=== PATIENT | female | born 1985 | race Caucasian/White ===

== ENCOUNTER 2018-08-15 22:50 | Emergency (ER) | payer SELFPAY ==
[~2018-08-15] VITALS: Ht 157.5 cm; Wt 113.4 kg
[~2018-08-15 22:50] MED LIST: AMOX500C2 PO; CODE-54 PO; CYCL10TA9 PO; FLUC200T PO; IBP600T1 PO; LEVO500T2 PO; LRT10T PO; NAPR-689 PO; PREN-115 PO; TRAM-42 PO
--- OUTSIDE RECORDS SUMMARY | 2018-08-15 22:55 | XMS REPORT ---
Author Author GEORGE ESTEBAN [facility] eClinicalWorks Address Unknown Phone Unavailable Care Team Providers Care Senior Merchandiser Name Role Phone GEORGE ESTEBAN Unavailable Allergies No Known Allergies Problems Problem Type Condition Code Onset Dates Condition Status Problem Surveillance for control, intrauterine device Z30.431 Active Problem Breast tenderness N64.4 Active Problem History of nipple discharge Z87.898 Active Problem Absence of menses due to use of contraceptive N91.2 Active Assessment History of nipple discharge Z87.898 Active Medications No Known Medications Procedures Procedure Coding System Code Date VENIPUNCT, ROUTINE* CPT-4 09622 Oct 17, 2015 ASSAY OF PROLACTIN CPT-4 03643 Oct 17, 2015 Results No Known Results Summary Purpose eClinicalWorks Submission
--- OUTSIDE RECORDS SUMMARY | 2018-08-15 22:55 | XMS REPORT ---
Author Author GEORGE ESTEBAN [facility] eClinicalWorks Address Unknown Phone Unavailable Care Team Providers Care City Assessor Name Role Phone GEORGE ESTEBAN CP Unavailable Allergies No Known Allergies Problems Problem Type Condition Code Onset Dates Condition Status Assessment History of depression Z86.59 Active Problem Absence of menses due to use of contraceptive N91.2 Active Assessment Well woman exam Z01.419 Active Assessment Family history of diabetes mellitus Z83.3 Active Problem History of anxiety Z86.59 Active Problem History of galactorrhea Z87.59 Active Problem History of depression Z86.59 Active Problem Surveillance for control, intrauterine device Z30.431 Active Problem Breast tenderness N64.4 Active Problem Left leg pain M79.605 Active Problem History of nipple discharge Z87.898 Active Medications No Known Medications Procedures Procedure Coding System Code Date GLYCATED HEMOGLOBIN TEST CPT-4 76816 Nov 22, 2015 LIPID PANEL CPT-4 57336 Nov 22, 2015 ASSAY THYROID STIM HORMONE CPT-4 98959 Nov 22, 2015 VENIPUNCT, ROUTINE* CPT-4 55119 Nov 22, 2015 COMPREHEN METABOLIC PANEL CPT-4 81094 Nov 22, 2015 Results Name Result Date Reference Range Unit Abnormality Flag ROUTINE VENIPUNCTURE Summary Purpose eClinicalWorks Submission
--- OUTSIDE RECORDS SUMMARY | 2018-08-15 22:55 | XMS REPORT ---
Author Author VIRGINIE MARINA [facility] Address Unknown Care Team Providers Care Clinical Nursing Assistant Name Role Phone VIRGINIE MARINA Unavailable PROBLEMS Type Condition ICD9-CM Code [id number] Code Onset Dates Condition Status SNOMED Code Problem Breast tenderness N64.4 Active 68439164 Problem History of nipple discharge Z87.898 Active 384832489 Problem Surveillance for control, intrauterine device Z30.431 Active 208460891 Assessment Dental examination Z01.20 Jun, Active 635128891 Problem Absence of menses due to use of contraceptive N91.2 Active 58028358 Problem Pre-diabetes R73.09 Active 8828980 Problem GERD (gastroesophageal reflux disease) K21.9 Active 701512196 Problem History of galactorrhea Z87.59 Active 009483932 Problem Left leg pain M79.605 Active 989523940 Problem History of depression Z86.59 Active 098673740 Problem History of anxiety Z86.59 Active 210905514 ALLERGIES Substance Reaction Event Type Date Status N.K.D.A. Unknown Non Drug Allergy Jun, Unknown SOCIAL HISTORY No smoking Hx information available PLAN OF CARE VITAL SIGNS Height 62 in 2016-06-24 Blood pressure systolic 115 mmHg 2016-06-24 Blood pressure diastolic 77 mmHg 2016-06-24 MEDICATIONS Medication Instructions Dosage Frequency Start Date End Date Duration Status Amoxicillin 500 MG Orally 3 times a day 1 capsule 8h Jun, Jun, 7 days Active [place] 5-325 MG Orally every 6 hrs 1 tablet as needed 6h Jun, Jun, 4 days Active RESULTS No Results PROCEDURES Procedure Date Ordered Related Diagnosis Body Site LTD ORAL EVALUATION - PROBLEM FOCUS Jun 24, 2016 PANORAMIC FILM SEE ALSO CODE 37036 Jun 24, 2016 IMMUNIZATIONS No Known Immunizations
--- OUTSIDE RECORDS SUMMARY | 2018-08-15 22:55 | XMS REPORT ---
Author Author CATHLEEN JARA [facility] Address [address] [place] [address] Care Team Providers Care Supervisory Air Intercept Controller Name Role Phone ESTEFANISUDARSHAN [place] Unavailable PROBLEMS Type Condition ICD9-CM Code HKA34-BG Code Onset Dates Condition Status SNOMED Code Problem Breast tenderness N64.4 Active 30386811 Problem History of nipple discharge Z87.898 Active 828176614 Problem Absence of menses due to use of contraceptive N91.2 Active 37746625 Problem Surveillance for control, intrauterine device Z30.431 Active 726751562 Problem GERD (gastroesophageal reflux disease) K21.9 Active 501166159 Problem Pre-diabetes R73.09 Active 5091456 Problem History of anxiety Z86.59 Active 961098061 Problem History of galactorrhea Z87.59 Active 439264030 Problem Left leg pain M79.605 Active 984815484 Problem History of depression Z86.59 Active 041402748 ALLERGIES No Information ENCOUNTERS Encounter Location Date Diagnosis [facility] [id number] [place] [address] Nov, [facility] [id number] [place] [address]- 4445 Nov, Surveillance for control, intrauterine device Z30.431 ; Pelvic pain R10.2 and BMI 40.0-44.9, adult Z68.41 [facility] [id number] [place] [address]83- 4488 Nov, [place] [id number] [address] Aug, UTI (urinary tract infection) N39.0 [facility] [address] [place] [id number] Jun, Dental examination Z01.20 [place] [id number] [place] [address]- 23[address] 21 Nov, 2015 Pre-diabetes R73.09 ; Left leg pain M79.605 and GERD ( gastroesophageal reflux disease) K21.9 [place] [id number] [place] [address]- [address] 07 Nov, 2015 Well woman exam Z01.419 ; History of depression Z86.59 and Family history of diabetes mellitus Z83.3 [place] [address] [address] 07 Nov, 2015 Left leg pain M79.605 [place] [address] [address] Nov, Well woman exam Z01.419 ; Family history of diabetes mellitus Z83.3 ; History of depression Z86.59 ; History of anxiety Z86.59 ; Surveillance for control, intrauterine device Z30.431 ; Breast tenderness N64.4 ; History of galactorrhea Z87.59 and Left leg pain M79.605 [place] [id number] [place] [address]- 5317 Oct, [address] [address] Oct, History of nipple discharge Z87.898 [place] [id number] [place] [address]- 8[address] Oct, Surveillance for control, intrauterine device Z30.431 ; History of nipple discharge Z87.898 ; Breast tenderness N64.4 ; Vaginal discharge N89.8 ; Screening for malignant neoplasm of cervix Z12.4 ; Absence of menses due to use of contraceptive N91.2 ; Unprotected sexual intercourse Z72.51 ; Abdominal bloating R14.0 ; Fibrocystic breast, right N60.11 and Fibrocystic breast, left N60.12 [place] [id number] [place] [address]- [address] Feb, [place] [address] [id number] [place] [address] 13 Feb, 2015 [facility] [place] [facility] [address] [id number] [place] [address] 15 Oct, 2014 [facility] [place] [facility] [address] [id number] [place] [address]- 6499 15 Oct, 2014 [facility] [place] [facility] [address] [id number] [place] [address] 1932 Oct, [facility] [place] [facility] [address] [id number] [place] [address] 2248 Oct, [facility] [place] [facility] [address] [id number] [place] [address] 74[address] Oct, [facility] [place] [facility] [address] [id number] [place] [address] 9363 Dec, [facility] [place] [facility] [address] [id number] [place] [address]- 3047 Dec, [facility] [place] [facility] [address] [id number] [place] [address]- 9577 Oct, [facility] [place] [facility] [address] [id number] [place] [address]- 6698 Oct, [facility] [place] [facility] [address] [id number] [place] [address] 24[address] Oct, [facility] [place] [facility] [address] [id number] [place] [address]- 0436 Oct, [facility] [place] [facility] [address] [id number] [place] [address]- 9880 14 Aug, 2013 [facility] [place] [facility] [address] [id number] [place] [address]- [address]233 14 Aug, 2013 [facility] [place] [facility] [address] [id number] [place] [address] 11 Aug, 2013 [facility] [place] [facility] [address] [id number], [place] [address] Aug, [facility] [place] [facility] [address] [id number] [place] [address]- 6412 Aug, [facility] [place] [facility] [address] [id number] [place] [address]- 7507 Aug, [facility] [place] [facility] [address] [id number] [place] [address]- 3897 Aug, [facility] [place] [facility] [address] [id number] [place] [address]- 8485 Jul, [facility] [place] [facility] [address] [id number] [place] [address] Jul, [facility] [place] [facility] [address] [id number] [place] [address]- 8211 Jul, [facility] [place] [facility] [address] [id number] [place] [address]- 6051 Jul, [facility] [place] [facility] [address] [id number] [place] [address]- 2475 Jun, [facility] [place] [facility] [address] [id number] [place] [address]- 2286 Jun, [facility] [place] [facility] [address] [id number] [place] [address]- 5023 Jun, [facility] [place] [facility] [address] [id number], [place] [address] Jun, [facility] [place] [facility] [address] [id number], [place] [address] 5[address] Jun, [facility] [place] [facility] [address] [id number] [place] [address]- 1441 May, [facility] [place] [facility] [address] [id number] [place] [address]- 6059 Apr, [facility] [place] [facility] [address] [id number] [place] [address]- 7880 Apr, [facility] [place] [facility] [address] [id number] [place] [address]- 7317 Apr, [facility] [place] [address] [id number] [place] [address]- 5471 Apr, [facility] [address] [id number] [place] [address]- 4482 March, [facility] [address] [id number] [place] [address]- 9742 March, [facility] [address] [id number] [place] [address]- 3039 March, [facility] [address] [id number] [place] [address]- 8298 March, [facility] [address] [id number] [place] [address]- 7037 March, [facility] [address] [id number] [place] [address]- 6614 March, [facility] [address] [id number] [place] [address]- 0656 March, [facility] [place] [address] [id number] [place] [address]- 3921 Feb, [facility] [address] [id number] [place] [address]- 6714 Feb, [facility] [address] [id number] [place] [address]- 5463 Feb, [facility] [address] [id number] [place] [address]- 0714 Jan, [facility] [address] [id number] [place] [address]- 2693 Jan, [facility] [address] [id number] [place] [address]- 1995 Jan, [facility] [address] [id number] [place] [address]- 2555 Dec, [facility] [address] [id number] [address] Jun, [facility] [address] [address] Jan, [facility] [address] [address] Nov, [facility] [address] [address]- [address] Nov, [facility] [address] [id number] [address]- [address] Oct, [facility] [address] [address]- 6 Oct, [facility] [address] [place] [address]- [address] Oct, [facility] [address] [address]- 25[address] Oct, [facility] [address] [id number] [address]- 1406 Feb, [facility] [address] [place] [address]- [address] Feb, [facility] [address] [id number] [address]- [address] Oct, [facility] [address] [id number] [address] March, IMMUNIZATIONS No Known Immunizations SOCIAL HISTORY Never Assessed REASON FOR VISIT Phone Call--ADaviedRN PLAN OF CARE VITAL SIGNS MEDICATIONS Unknown Medications RESULTS No Results PROCEDURES No Known procedures INSTRUCTIONS MEDICATIONS ADMINISTERED No Known Medications MEDICAL (GENERAL) HISTORY Type Description Date Medical History Pre-diabetes Surgical History myringotomy with ventilating tube age 6
--- OUTSIDE RECORDS SUMMARY | 2018-08-15 22:55 | XMS REPORT ---
Author Author GEORGE ESTEBAN Organization eClinicalWorks Address Unknown Phone Unavailable Care Team Providers Care [place] Name Role Phone GEORGE ESTEBAN CP Unavailable Allergies, Adverse Reactions, Alerts Substance Reaction Event Type N.K.D.A. Info Not Available Non Drug Allergy Problems Problem Type Condition Code Onset Dates Condition Status Assessment Family history of diabetes mellitus Z83.3 Active Problem Absence of menses due to use of contraceptive N91.2 Active Assessment Well woman exam Z01.419 Active Problem History of anxiety Z86.59 Active Problem History of galactorrhea Z87.59 Active Problem History of depression Z86.59 Active Problem Surveillance for control, intrauterine device Z30.431 Active Problem Breast tenderness N64.4 Active Problem Left leg pain M79.605 Active Problem History of nipple discharge Z87.898 Active Assessment Breast tenderness N64.4 Active Assessment Surveillance for control, intrauterine device Z30.431 Active Assessment Left leg pain M79.605 Active Assessment History of anxiety Z86.59 Active Assessment History of galactorrhea Z87.59 Active Assessment History of depression Z86.59 Active Medications Medication Code System Code Instructions Start Date End Date Status Dosage Mirena [facility] [address]-07 20 MCG/24HR Intrauterine not defined Procedures Procedure Coding System Code Date Preventive Care Est Pt. Age 18-39 CPT-4 05530 Nov 19, 2015 Vital Signs Date/Time: Nov 19, 2015 Temperature 97.7 F Weight 259.1 lbs Height 62 in BMI 47.38 Index Blood Pressure Diastolic 72 mmHg Blood Pressure Systolic 116 mmHg Cardiac Monitoring Heart Rate 80 bpm Results No Known Results Summary Purpose eClinicalWorks Submission
--- OUTSIDE RECORDS SUMMARY | 2018-08-15 22:55 | XMS REPORT ---
Author Author CATHLEEN JARA [facility] eClinicalWorks Address Unknown Phone Unavailable Care Team Providers Care Cane Furniture Maker Name Role Phone CATHLEEN JARA CP Unavailable Allergies No Known Allergies Problems Problem Type Condition Code Onset Dates Condition Status Problem Surveillance for control, intrauterine device Z30.431 Active Problem Breast tenderness N64.4 Active Problem History of nipple discharge Z87.898 Active Problem Absence of menses due to use of contraceptive N91.2 Active Medications No Known Medications Results No Known Results Summary Purpose eClinicalWorks Submission
--- OUTSIDE RECORDS SUMMARY | 2018-08-15 22:55 | XMS REPORT ---
Author Author FLIP CEJA Organization eClinicalWorks Address Unknown Phone Unavailable Care Team Providers Care Command Center Officer Name Role Phone FLIP CEJA CP Unavailable Allergies, Adverse Reactions, Alerts Substance Reaction Event Type N.K.D.A. Info Not Available Non Drug Allergy Problems Problem Type Condition Code Onset Dates Condition Status Problem Absence of menses due to use of contraceptive N91.2 Active Assessment Left leg pain M79.605 Active Problem History of anxiety Z86.59 Active Problem History of galactorrhea Z87.59 Active Problem History of depression Z86.59 Active Problem Surveillance for control, intrauterine device Z30.431 Active Problem Breast tenderness N64.4 Active Problem Left leg pain M79.605 Active Problem History of nipple discharge Z87.898 Active Medications Medication Code System Code Instructions Start Date End Date Status Dosage Neurontin [facility] [address]-23 100 MG Orally Once a day Nov 22, 2015 as directed Ibuprofen [facility] [address]-61 800 MG Orally 2 times a day Nov 22, 2015 1 tablet Mirena [facility] [address]-55 20 MCG/24HR Intrauterine not defined Procedures Procedure Coding System Code Date Office Visit, Est Pt., Level 3 CPT-4 47926 Nov 22, 2015 COMPLETE CBC W/AUTO DIFF WBC CPT-4 77115 Nov 22, 2015 Vital Signs Date/Time: Nov 22, 2015 Temperature 97.8 F Weight 257.8 lbs Height 62 in BMI 47.15 Index Blood Pressure Diastolic 74 mmHg Blood Pressure Systolic 120 mmHg Cardiac Monitoring Heart Rate 84 bpm Results No Known Results Summary Purpose eClinicalWorks Submission
--- OUTSIDE RECORDS SUMMARY | 2018-08-15 22:55 | XMS REPORT ---
Author Author GEORGE ESTEBAN [facility] eClinicalWorks Address Unknown Phone Unavailable Care Team Providers Care Oracle Engineer Name Role Phone GEORGE ESTEBAN CP Unavailable Allergies, Adverse Reactions, Alerts Substance Reaction Event Type N.K.D.A. Info Not Available Non Drug Allergy Problems Problem Type Condition Code Onset Dates Condition Status Assessment Absence of menses due to use of contraceptive N91.2 Active Assessment Vaginal discharge N89.8 Active Assessment Screening for malignant neoplasm of cervix Z12.4 Active Problem Surveillance for control, intrauterine device Z30.431 Active Problem Breast tenderness N64.4 Active Problem History of nipple discharge Z87.898 Active Assessment History of nipple discharge Z87.898 Active Assessment Breast tenderness N64.4 Active Problem Absence of menses due to use of contraceptive N91.2 Active Assessment Surveillance for control, intrauterine device Z30.431 Active Assessment Fibrocystic breast, left N60.12 Active Assessment Fibrocystic breast, right N60.11 Active Assessment Abdominal bloating R14.0 Active Assessment Unprotected sexual intercourse Z72.51 Active Medications Medication Code System Code Instructions Start Date End Date Status Dosage Mirena [facility] [address]-53 20 MCG/24HR Intrauterine not defined Procedures Procedure Coding System Code Date SPECIMEN HANDLING CPT-4 03348 Oct 16, 2015 URINE TEST CPT-4 24747 Oct 16, 2015 CULTURE, BACTERIA, OTHER CPT-4 43221 Oct 16, 2015 Office Visit, Est Pt., Level 4 CPT-4 96846 Oct 16, 2015 Vital Signs Date/Time: Oct 16, 2015 Temperature 97.6 F Weight 255.3 lbs Height 62 in BMI 46.69 Index Blood Pressure Diastolic 74 mmHg Blood Pressure Systolic 118 mmHg Cardiac Monitoring Heart Rate 84 bpm Results No Known Results Summary Purpose eClinicalWorks Submission
--- OUTSIDE RECORDS SUMMARY | 2018-08-15 22:55 | XMS REPORT ---
Author HOLLY [facility] eClinicalWorks Address Unknown Phone Unavailable Care Team Providers Care Director Dietetics Department Name Role Phone HOLLY MIMS CP Unavailable Allergies, Adverse Reactions, Alerts Substance Reaction Event Type N.K.D.A. Info Not Available Non Drug Allergy Problems Problem Type Condition Code Onset Dates Condition Status Problem Absence of menses due to use of contraceptive N91.2 Active Problem Surveillance for control, intrauterine device Z30.431 Active Problem Breast tenderness N64.4 Active Assessment UTI (urinary tract infection) N39.0 Active Problem GERD (gastroesophageal reflux disease) K21.9 Active Problem History of depression Z86.59 Active Problem Pre-diabetes R73.09 Active Problem Left leg pain M79.605 Active Problem History of nipple discharge Z87.898 Active Problem History of anxiety Z86.59 Active Problem History of galactorrhea Z87.59 Active Medications Medication Code System Code Instructions Start Date End Date Status Dosage Ciprofloxacin HCl [facility] [address]-97 500 MG Orally Twice a day 1 tablet Procedures Procedure Coding System Code Date Office Visit, Est Pt., Level 3 CPT-4 60507 Aug 18, 2016 URINALYSIS, AUTO, W/O SCOPE CPT-4 18651 Aug 18, 2016 Vital Signs Date/Time: Aug 18, 2016 Cardiac Monitoring Heart Rate 80 bpm Weight 246 lbs Height 62 in BMI 44.99 Index Blood Pressure Diastolic 84 mmHg Blood Pressure Systolic 118 mmHg Results Name Result Date Reference Range Unit Abnormality Flag UA LONG DIP (IN HOUSE) ----FLOYD Negative 20160818 ----NIT Negative [id number] ----Exp date [id number] ----Lot # [id number] ----SG >=1.030 20160818 ----KET Negative [id number] ----RUCHI Negative [id number] ----GLU Negative [id number] ----Odor none [id number] ----pH 5.0 20160818 ----BLO Negative [id number] ----URO 0.2 20160818 ----Protein Negative [id number] ----Lot # [id number] ----Exp date [id number] ----Clarity slightly cloudy [id number] ----Color orange 20160818 Summary Purpose eClinicalWorks Submission
--- OUTSIDE RECORDS SUMMARY | 2018-08-15 22:55 | XMS REPORT ---
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 Role Phone ESTEFANISUDARSHAN [place] Unavailable PROBLEMS Type Condition ICD9-CM Code ENV93-MA Code Onset Dates Condition Status SNOMED Code Problem Breast tenderness N64.4 Active 43755389 Problem History of nipple discharge Z87.898 Active 051969029 Problem Absence of menses due to use of contraceptive N91.2 Active 99068489 Problem Surveillance for control, intrauterine device Z30.431 Active 155789320 Problem GERD (gastroesophageal reflux disease) K21.9 Active 833507195 Problem Pre-diabetes R73.09 Active 6500152 Problem History of anxiety Z86.59 Active 871780446 Problem History of galactorrhea Z87.59 Active 896792878 Problem Left leg pain M79.605 Active 029039132 Problem History of depression Z86.59 Active 857700520 ALLERGIES No Known Allergies ENCOUNTERS Encounter Location Date Diagnosis [facility] [id number] [place] [address]- [address]300 Nov, [facility] [id number] [place] [address] 32393- 6478 Nov, Surveillance for control, intrauterine device Z30.431 ; Pelvic pain R10.2 and BMI 40.0-44.9, adult Z68.41 [facility] [id number] [place] [address]08- 5979 Nov, [place] [id number] [address] Aug, UTI (urinary tract infection) N39.0 [facility] [id number] [place] [id number] Aug, 2016 Dental examination Z01.20 [place] [id number] [place] [address]95- 1106 21 Nov, 2015 Pre-diabetes R73.09 ; Left leg pain M79.605 and GERD ( gastroesophageal reflux disease) K21.9 [place] [id number] [place] [address] 15690- 7378 07 Nov, 2015 Left leg pain M79.605 [place] [address] [address]- [address] 07 Nov, 2015 Well woman exam Z01.419 ; History of depression Z86.59 and Family history of diabetes mellitus Z83.3 [place] [address] [address]- [address] Nov, Well woman exam Z01.419 ; Family history of diabetes mellitus Z83.3 ; History of depression Z86.59 ; History of anxiety Z86.59 ; Surveillance for control, intrauterine device Z30.431 ; Breast tenderness N64.4 ; History of galactorrhea Z87.59 and Left leg pain M79.605 [place] [address] [address]- [address] Oct, [place] [address] [address]- [address]698 Oct, History of nipple discharge Z87.898 [place] [address] [address]- [address] Oct, Surveillance for control, intrauterine device Z30.431 ; History of nipple discharge Z87.898 ; Breast tenderness N64.4 ; Vaginal discharge N89.8 ; Screening for malignant neoplasm of cervix Z12.4 ; Absence of menses due to use of contraceptive N91.2 ; Unprotected sexual intercourse Z72.51 ; Abdominal bloating R14.0 ; Fibrocystic breast, right N60.11 and Fibrocystic breast, left N60.12 [place] [id number] [place] [address]4- 7226 Feb, [facility] [place] [facility] [address] [id number] [place] [address]265 13 Feb, 2015 [facility] [place] [facility] [address] [id number] [place] [address] 7437 Oct, [facility] [place] [facility] [address] [id number] [place] [address] 9818 Oct, [facility] [place] [facility] [address] [id number] [place] [address]- 1442 Oct, [facility] [place] [facility] [address] [id number] [place] [address] 1373 Oct, [facility] [place] [facility] [address] [id number] [place] [address]- 8963 Oct, [facility] [place] [facility] [address] [id number] [place] [address]- 0353 Dec, [facility] [place] [facility] [address] [id number] [place] [address]- 5711 Dec, [facility] [place] [facility] [address] [id number] [place] [address]- 2103 Oct, [facility] [place] [facility] [address] [id number] [place] [address]- 7091 Oct, [facility] [place] [facility] [address] [id number] [place] [address]- 9938 Oct, [facility] [place] [facility] [address] [id number] [place] [address]- 4564 Oct, [facility] [place] [facility] [address] [id number] [place] [address]- 8664 14 Aug, 2013 [facility] [place] [facility] [address] [id number] [place] [address]- 1866 14 Aug, 2013 [facility] [place] [facility] [address] [id number] [place] [address]- 2219 11 Aug, 2013 [facility] [place] [facility] [address] [id number] [place] [address]- 2546 Aug, [facility] [place] [facility] [address] [id number] [place] [address] Aug, [facility] [place] [facility] [address] [id number] [place] [address]- 0013 Aug, [facility] [place] [facility] [address] [id number] [place] [address]- 5446 Aug, [facility] [place] [facility] [address] [id number] [place] [address]- 6538 Jul, [facility] [place] [facility] [address] [id number] [place] [address]- 0265 Jul, [facility] [place] [facility] [address] [id number] [place] [address]- 2005 Jul, [facility] [place] [facility] [address] [id number] [place] [address]- 5946 Jul, [facility] [place] [facility] [address] [id number] [place] [address]- 5485 Jun, [facility] [place] [facility] [address] [id number] [place] [address]- 9103 Jun, [facility] [place] [facility] [address] [id number] [place] [address]- 9393 Jun, [facility] [place] [facility] [address] [id number] [place] [address]- 0835 Jun, [facility] [place] [facility] [address] [id number] [place] [address]- 8452 Jun, [facility] [place] [facility] [address] [id number] [place] [address]- 7227 May, [facility] [place] [facility] [address] [id number] [place] [address]- 2599 Apr, [facility] [place] [facility] [address] [id number] [place] [address]- 8833 Apr, [facility] [place] [facility] [address] [id number] [place] [address]- 4366 Apr, [facility] [address] [id number] [place] [address]- 7271 Apr, [facility] [address] [id number] [place] [address]- 9131 March, [facility] [address] [id number] [place] [address]- 2253 March, [facility] [address] [id number] [place] [address]- 7695 March, [facility] [address] [id number] [place] [address]- 7596 March, [facility] [address] [id number] [place] [address]- 6903 March, [facility] [address] [id number] [place] [address]- 5688 March, [facility] [address] [id number] [place] [address]- 5039 March, [facility] [address] [id number] [place] [address]- 0550 Feb, [facility] [address] [id number] [place] [address]- 9718 Feb, [facility] [address] [id number] [place] [address]- 4999 Feb, [facility] [address] [id number] [place] [address]- 5341 Jan, [facility] [address] [id number] [place] [address]- 5837 Jan, [facility] [address] [id number] [place] [address]- 9698 Jan, [facility] [address] [id number] [place] [address]- 6255 Dec, [facility] [id number] [address] Jun, [facility] [address] [place] [address]- 287[address] Jan, [facility] [address] [place] [address]- 46[address] Nov, [facility] [address], [place] [address]- 1316 Nov, [facility] [address] [address] Oct, [facility] [id number] [place] [address] 83265- 9006 Oct, [facility] [address], [place] [address]- 5971 Oct, [facility] [address] [place] [address]- 5881 Oct, [facility] [address] Feb, [facility] [address] [place] [address]- 1586 Feb, [facility] [id number] [address]- 8[address] Oct, [facility] [id number], [place] [address] March, IMMUNIZATIONS No Known Immunizations SOCIAL HISTORY Never Assessed REASON FOR VISIT IUD Check, patient states she has been having a lot of cramping and feeling like something is pocking her inside during intercourse x the last month -- bryan anand, patient would like a test , having soreness on breast PLAN OF CARE Activity Details Follow Up prn Reason: VITAL SIGNS Height 62 in 2017-11-27 Weight 229.0 lbs 2017-11-27 Temperature 98.0 degrees Fahrenheit 2017-11-27 Heart Rate 78 bpm 2017-11-27 Respiratory Rate 20 2017-11-27 BMI 41.88 kg/m2 2017-11-27 Blood pressure systolic 130 mmHg 2017-11-27 Blood pressure diastolic 84 mmHg 2017-11-27 MEDICATIONS Medication Instructions Dosage Frequency Start Date End Date Duration Status Ciprofloxacin HCl 500 MG Orally Twice a day 1 tablet 12h Not- Taking Omeprazole 20 MG Orally Once a day 1 capsules 24h Nov, Not- Taking Mirena 20 MCG/24HR Active Neurontin 100 MG Orally Once a day as directed 24h Nov, Not- Taking MetFORMIN HCl ER (MOD) 500 MG Orally 2 times a day Take one tablet daily in the morning for one week, then take one tablet twice a day with meals 12h Nov, Not-Taking Ibuprofen 800 MG Orally 3 times a day 1 tablet 8h Nov, Active Pyridium 200 mg 1 tablet by Oral route 3 times per day for 3 day(s) for bladder pain Oct, Not-Taking Cipro 500 mg 1 tablet by Oral route every 12 hours for 10 day(s) Oct Not-Taking RESULTS No Results PROCEDURES Procedure Date Ordered Result Body Site URINE TEST Nov 27, 2017 No Charge Nov 27, 2017 CULTURE, BACTERIA, OTHER Nov 27, 2017 INSTRUCTIONS MEDICATIONS ADMINISTERED No Known Medications MEDICAL (GENERAL) HISTORY Type Description Date Medical History Pre-diabetes Surgical History myringotomy with ventilating tube age 6
--- OUTSIDE RECORDS SUMMARY | 2018-08-15 22:58 | XMS REPORT | Continuity of Care Document ---
Author Author [facility] Address Unknown Phone Unavailable Allergies Active Description Code Type Severity Reaction Onset Reported/Identified Relationship to Patient Clinical Status Yes No Known Drug Allergies [id number] Drug Allergy Unknown N/A 10/09/2008 Medications There is no data. Problems Date Dx Coded Attending Type Code Diagnosis Diagnosed By 06/06/2008 616.10 VAGINITIS AND VULVOVAGINITIS UNSPECIFIED 06/06/2008 V22.1 PC OTHER NORMAL 06/06/2008 616.10 VAGINITIS AND VULVOVAGINITIS UNSPECIFIED 06/06/2008 V22.1 PC OTHER NORMAL 06/06/2008 616.10 VAGINITIS AND VULVOVAGINITIS UNSPECIFIED 06/06/2008 V22.1 PC OTHER NORMAL 06/06/2008 616.10 VAGINITIS AND VULVOVAGINITIS UNSPECIFIED 06/06/2008 V22.1 PC OTHER NORMAL 06/06/2008 616.10 VAGINITIS AND VULVOVAGINITIS UNSPECIFIED 06/06/2008 V22.1 PC OTHER NORMAL 06/06/2008 616.10 VAGINITIS AND VULVOVAGINITIS UNSPECIFIED 06/06/2008 V22.1 PC OTHER NORMAL 06/06/2008 616.10 VAGINITIS AND VULVOVAGINITIS UNSPECIFIED 06/06/2008 V22.1 PC OTHER NORMAL 06/06/2008 616.10 VAGINITIS AND VULVOVAGINITIS UNSPECIFIED 06/06/2008 V22.1 PC OTHER NORMAL 06/06/2008 616.10 VAGINITIS AND VULVOVAGINITIS UNSPECIFIED 06/06/2008 V22.1 PC OTHER NORMAL 06/06/2008 ELANA GALDAMEZ DO 616.10 VAGINITIS AND VULVOVAGINITIS UNSPECIFIED 06/06/2008 ELANA GALDAMEZ DO V22.1 PC OTHER NORMAL 06/06/2008 GALDAMEZ DO, ELANA K 616.10 VAGINITIS AND VULVOVAGINITIS UNSPECIFIED 06/06/2008 DENICE GALEAS ELANA K V22.1 PC OTHER NORMAL 06/06/2008 DENICE GALEAS ELANA K 616.10 VAGINITIS AND VULVOVAGINITIS UNSPECIFIED 06/06/2008 DENICE GALEAS ELANA K V22.1 PC OTHER NORMAL 06/06/2008 DENICE GALEAS ELANA K 616.10 VAGINITIS AND VULVOVAGINITIS UNSPECIFIED 06/06/2008 DENICE GALEAS ELANA K V22.1 PC OTHER NORMAL 06/06/2008 GENET ORNAMENTAL IRON WORKER HELPER, SAFIA A 616.10 VAGINITIS AND VULVOVAGINITIS UNSPECIFIED 06/06/2008 GENET ORNAMENTAL IRON WORKER HELPER, SAFIA A V22.1 PC OTHER NORMAL 06/06/2008 GENETKayla STUBBS SAFIA A 616.10 VAGINITIS AND VULVOVAGINITIS UNSPECIFIED 06/06/2008 GENET STUBBS SAFIA A V22.1 PC OTHER NORMAL 06/06/2008 GENET STUBBS SAFIA A 616.10 VAGINITIS AND VULVOVAGINITIS UNSPECIFIED 06/06/2008 GENET ORNAMENTAL IRON WORKER HELPER, SAFIA A V22.1 PC OTHER NORMAL 06/06/2008 SARAI STUBBS NNEKA R 616.10 VAGINITIS AND VULVOVAGINITIS UNSPECIFIED 06/06/2008 SARAI STUBBS NNEKA R V22.1 PC OTHER NORMAL 06/06/2008 SARAI STUBBS NNEKA R 616.10 VAGINITIS AND VULVOVAGINITIS UNSPECIFIED 06/06/2008 SARAI STUBBS NNEKA R V22.1 PC OTHER NORMAL 07/07/2008 V28.8 SCREEN GLUCOSE TOLERANCE/TETRA SCREEN 07/07/2008 V28.8 SCREEN GLUCOSE TOLERANCE/TETRA SCREEN 07/07/2008 V28.8 SCREEN GLUCOSE TOLERANCE/TETRA SCREEN 07/07/2008 V28.8 SCREEN GLUCOSE TOLERANCE/TETRA SCREEN 07/07/2008 V28.8 SCREEN GLUCOSE TOLERANCE/TETRA SCREEN 07/07/2008 V28.8 SCREEN GLUCOSE TOLERANCE/TETRA SCREEN 07/07/2008 V28.8 SCREEN GLUCOSE TOLERANCE/TETRA SCREEN 07/07/2008 V28.8 SCREEN GLUCOSE TOLERANCE/TETRA SCREEN 07/07/2008 V28.8 SCREEN GLUCOSE TOLERANCE/TETRA SCREEN 07/07/2008 GALDAMEZ DO, ELANA K V28.8 SCREEN GLUCOSE TOLERANCE/TETRA SCREEN 07/07/2008 GALDAMEZ DO, ELANA K V28.8 SCREEN GLUCOSE TOLERANCE/TETRA SCREEN 07/07/2008 GALDAMEZ DO, ELANA K V28.8 SCREEN GLUCOSE TOLERANCE/TETRA SCREEN 07/07/2008 GALDAMEZ DO, ELANA K V28.8 SCREEN GLUCOSE TOLERANCE/TETRA SCREEN 07/07/2008 GENET ORNAMENTAL IRON WORKER HELPER, SAFIA A V28.8 SCREEN GLUCOSE TOLERANCE/TETRA SCREEN 07/07/2008 GENET ORNAMENTAL IRON WORKER HELPER, SAFIA A V28.8 SCREEN GLUCOSE TOLERANCE/TETRA SCREEN 07/07/2008 GENET ORNAMENTAL IRON WORKER HELPER, SAFIA A V28.8 SCREEN GLUCOSE TOLERANCE/TETRA SCREEN 07/07/2008 SARAI ORNAMENTAL IRON WORKER HELPER, NNEKA R V28.8 SCREEN GLUCOSE TOLERANCE/TETRA SCREEN 07/07/2008 SARAI ORNAMENTAL IRON WORKER HELPER, NNEKA R V28.8 SCREEN GLUCOSE TOLERANCE/TETRA SCREEN 11/22/2008 V24.2 F/U , ROUTINE 11/22/2008 V25.40 CONTRACEPTIVE SURVEILLANCE UNSPECIFIED 11/22/2008 V25.49 SURVEILLANCE OF OTHER CONTRACEPTIVE METHOD 11/22/2008 V24.2 F/U , ROUTINE 11/22/2008 V25.40 CONTRACEPTIVE SURVEILLANCE UNSPECIFIED 11/22/2008 V25.49 SURVEILLANCE OF OTHER CONTRACEPTIVE METHOD 11/22/2008 V24.2 F/U , ROUTINE 11/22/2008 V25.40 CONTRACEPTIVE SURVEILLANCE UNSPECIFIED 11/22/2008 V25.49 SURVEILLANCE OF OTHER CONTRACEPTIVE METHOD 11/22/2008 V24.2 F/U , ROUTINE 11/22/2008 V25.40 CONTRACEPTIVE SURVEILLANCE UNSPECIFIED 11/22/2008 V25.49 SURVEILLANCE OF OTHER CONTRACEPTIVE METHOD 11/22/2008 V24.2 F/U , ROUTINE 11/22/2008 V25.40 CONTRACEPTIVE SURVEILLANCE UNSPECIFIED 11/22/2008 V25.49 SURVEILLANCE OF OTHER CONTRACEPTIVE METHOD 11/22/2008 V24.2 F/U , ROUTINE 11/22/2008 V25.40 CONTRACEPTIVE SURVEILLANCE UNSPECIFIED 11/22/2008 V25.49 SURVEILLANCE OF OTHER CONTRACEPTIVE METHOD 11/22/2008 V24.2 F/U , ROUTINE 11/22/2008 V25.40 CONTRACEPTIVE SURVEILLANCE UNSPECIFIED 11/22/2008 V25.49 SURVEILLANCE OF OTHER CONTRACEPTIVE METHOD 11/22/2008 V24.2 F/U , ROUTINE 11/22/2008 V25.40 CONTRACEPTIVE SURVEILLANCE UNSPECIFIED 11/22/2008 V25.49 SURVEILLANCE OF OTHER CONTRACEPTIVE METHOD 11/22/2008 V24.2 F/U , ROUTINE 11/22/2008 V25.40 CONTRACEPTIVE SURVEILLANCE UNSPECIFIED 11/22/2008 V25.49 SURVEILLANCE OF OTHER CONTRACEPTIVE METHOD 11/22/2008 GALDAMEZ DO ELANA K V24.2 F/U, ROUTINE 11/22/2008 GALDAMEZ DO ELANA K V25.40 CONTRACEPTIVE SURVEILLANCE UNSPECIFIED 11/22/2008 GALDAMEZ DO, ELANA K V25.49 SURVEILLANCE OF OTHER CONTRACEPTIVE METHOD 11/22/2008 GALDAMEZ DO, ELANA K V24.2 F/U, ROUTINE 11/22/2008 GALDAMEZ DO ELANA K V25.40 CONTRACEPTIVE SURVEILLANCE UNSPECIFIED 11/22/2008 GALDAMEZ DO, ELANA K V25.49 SURVEILLANCE OF OTHER CONTRACEPTIVE METHOD 11/22/2008 GALDAMEZ DO ELANA K V24.2 F/U, ROUTINE 11/22/2008 GALDAMEZ DO ELANA K V25.40 CONTRACEPTIVE SURVEILLANCE UNSPECIFIED 11/22/2008 GALDAMEZ DO, ELANA K V25.49 SURVEILLANCE OF OTHER CONTRACEPTIVE METHOD 11/22/2008 GALDAMEZ DO ELANA K V24.2 F/U, ROUTINE 11/22/2008 GALDAMEZ DO ELANA K V25.40 CONTRACEPTIVE SURVEILLANCE UNSPECIFIED 11/22/2008 GALDAMEZ DO, ELANA K V25.49 SURVEILLANCE OF OTHER CONTRACEPTIVE METHOD 11/22/2008 GENET ORNAMENTAL IRON WORKER HELPER, SAFIA A V24.2 F/U, ROUTINE 11/22/2008 GENET ORNAMENTAL IRON WORKER HELPER SAFIA A V25.40 CONTRACEPTIVE SURVEILLANCE UNSPECIFIED 11/22/2008 GENET ORNAMENTAL IRON WORKER HELPER, SAFIA A V25.49 SURVEILLANCE OF OTHER CONTRACEPTIVE METHOD 11/22/2008 GENET ORNAMENTAL IRON WORKER HELPER, SAFIA A V24.2 F/U, ROUTINE 11/22/2008 GENET ORNAMENTAL IRON WORKER HELPER SAFIA A V25.40 CONTRACEPTIVE SURVEILLANCE UNSPECIFIED 11/22/2008 GENET ORNAMENTAL IRON WORKER HELPER SAFIA A V25.49 SURVEILLANCE OF OTHER CONTRACEPTIVE METHOD 11/22/2008 GENET ORNAMENTAL IRON WORKER HELPER SAFIA A V24.2 F/U, ROUTINE 11/22/2008 GENET ORNAMENTAL IRON WORKER HELPER SAFIA A V25.40 CONTRACEPTIVE SURVEILLANCE UNSPECIFIED 11/22/2008 SAFIA DE LEÓN APRN A V25.49 SURVEILLANCE OF OTHER CONTRACEPTIVE METHOD 11/22/2008 NNEKA MOON APRN R V24.2 F/U, ROUTINE 11/22/2008 NNEKA MOON APRN R V25.40 CONTRACEPTIVE SURVEILLANCE UNSPECIFIED 11/22/2008 NNEKA MOON APRN R V25.49 SURVEILLANCE OF OTHER CONTRACEPTIVE METHOD 11/22/2008 NNEKA MOON APRN R V24.2 F/U, ROUTINE 11/22/2008 NNEKA MOON APRN R V25.40 CONTRACEPTIVE SURVEILLANCE UNSPECIFIED 11/22/2008 NNEKA MOON APRN R V25.49 SURVEILLANCE OF OTHER CONTRACEPTIVE METHOD 03/26/2009 111.0 DERMATOMYCOSIS TINEA VERSICOLOR 03/26/2009 278.00 OBESITY 03/26/2009 782.0 numbness ( hypesthesia) 03/26/2009 111.0 DERMATOMYCOSIS TINEA VERSICOLOR 03/26/2009 278.00 OBESITY 03/26/2009 782.0 numbness ( hypesthesia) 03/26/2009 111.0 DERMATOMYCOSIS TINEA VERSICOLOR 03/26/2009 278.00 OBESITY 03/26/2009 782.0 numbness ( hypesthesia) 03/26/2009 111.0 DERMATOMYCOSIS TINEA VERSICOLOR 03/26/2009 278.00 OBESITY 03/26/2009 782.0 NUMBNESS ( HYPESTHESIA) 03/26/2009 111.0 DERMATOMYCOSIS TINEA VERSICOLOR 03/26/2009 278.00 OBESITY 03/26/2009 782.0 NUMBNESS ( HYPESTHESIA) 03/26/2009 111.0 DERMATOMYCOSIS TINEA VERSICOLOR 03/26/2009 278.00 OBESITY 03/26/2009 782.0 NUMBNESS ( HYPESTHESIA) 03/26/2009 111.0 DERMATOMYCOSIS TINEA VERSICOLOR 03/26/2009 278.00 OBESITY 03/26/2009 782.0 NUMBNESS ( HYPESTHESIA) 03/26/2009 111.0 DERMATOMYCOSIS TINEA VERSICOLOR 03/26/2009 278.00 OBESITY 03/26/2009 782.0 NUMBNESS ( HYPESTHESIA) 03/26/2009 111.0 DERMATOMYCOSIS TINEA VERSICOLOR 03/26/2009 278.00 OBESITY 03/26/2009 782.0 NUMBNESS ( HYPESTHESIA) 03/26/2009 GALDAMEZ DO, ELANA K 111.0 DERMATOMYCOSIS TINEA VERSICOLOR 03/26/2009 GALDAMEZ DO, ELANA K 278.00 OBESITY 03/26/2009 GALDAMEZ DO, ELANA K 782.0 NUMBNESS (HYPESTHESIA) 03/26/2009 GALDAMEZ DO, ELANA K 111.0 DERMATOMYCOSIS TINEA VERSICOLOR 03/26/2009 GALDAMEZ DO, ELANA K 278.00 OBESITY 03/26/2009 GALDAMEZ DO, ELANA K 782.0 NUMBNESS (HYPESTHESIA) 03/26/2009 GALDAMEZ DO, ELANA K 111.0 DERMATOMYCOSIS TINEA VERSICOLOR 03/26/2009 GALDAMEZ DO, ELANA K 278.00 OBESITY 03/26/2009 GALDAMEZ DO, ELANA K 782.0 NUMBNESS (HYPESTHESIA) 03/26/2009 GALDAMEZ DO, ELANA K 111.0 DERMATOMYCOSIS TINEA VERSICOLOR 03/26/2009 GALDAMEZ DO, ELANA K 278.00 OBESITY 03/26/2009 GALDAMEZ DO, ELANA K 782.0 NUMBNESS (HYPESTHESIA) 03/26/2009 GENET ORNAMENTAL IRON WORKER HELPER, SAFIA A 111.0 DERMATOMYCOSIS TINEA VERSICOLOR 03/26/2009 GENET ORNAMENTAL IRON WORKER HELPER, SAFIA A 278.00 OBESITY 03/26/2009 GENET ORNAMENTAL IRON WORKER HELPER, SAFIA A 782.0 NUMBNESS (HYPESTHESIA) 03/26/2009 GENET ORNAMENTAL IRON WORKER HELPER, SAFIA A 111.0 DERMATOMYCOSIS TINEA VERSICOLOR 03/26/2009 GENET ORNAMENTAL IRON WORKER HELPER, SAFIA A 278.00 OBESITY 03/26/2009 GENET ORNAMENTAL IRON WORKER HELPER, SAFIA A 782.0 NUMBNESS (HYPESTHESIA) 03/26/2009 GENET ORNAMENTAL IRON WORKER HELPER, SAFIA A 111.0 DERMATOMYCOSIS TINEA VERSICOLOR 03/26/2009 GENET ORNAMENTAL IRON WORKER HELPER, SAFIA A 278.00 OBESITY 03/26/2009 GENET ORNAMENTAL IRON WORKER HELPER, SAFIA A 782.0 NUMBNESS (HYPESTHESIA) 03/26/2009 SARAI LEVYN, NNEKA R 111.0 DERMATOMYCOSIS TINEA VERSICOLOR 03/26/2009 SARAI LEVYN, NNEKA R 278.00 OBESITY 03/26/2009 SARAI LEVYN, NNEKA R 782.0 NUMBNESS (HYPESTHESIA) 03/26/2009 NNEKA MOON APRN R 111.0 DERMATOMYCOSIS TINEA VERSICOLOR 03/26/2009 NNEKA MOON APRN R 278.00 OBESITY 03/26/2009 LYNDON MOON APRNINA R 782.0 NUMBNESS (HYPESTHESIA) 04/23/2009 790.29 Oral Glucose Tolerance Test 2-Hour Value Between 140 - 200 04/23/2009 790.29 Oral Glucose Tolerance Test 2-Hour Value Between 140 - 200 04/23/2009 790.29 Oral Glucose Tolerance Test 2-Hour Value Between 140 - 200 04/23/2009 790.29 Oral Glucose Tolerance Test 2-Hour Value Between 140 - 200 04/23/2009 790.29 Oral Glucose Tolerance Test 2-Hour Value Between 140 - 200 04/23/2009 790.29 Oral Glucose Tolerance Test 2-Hour Value Between 140 - 200 04/23/2009 790.29 Oral Glucose Tolerance Test 2-Hour Value Between 140 - 200 04/23/2009 790.29 Oral Glucose Tolerance Test 2-Hour Value Between 140 - 200 04/23/2009 790.29 Oral Glucose Tolerance Test 2-Hour Value Between 140 - 200 04/23/2009 GALDAMEZ DO, ELANA K 790.29 Oral Glucose Tolerance Test 2-Hour Value Between 140 - 200 04/23/2009 GALDAMEZ DO, ELANA K 790.29 Oral Glucose Tolerance Test 2-Hour Value Between 140 - 200 04/23/2009 GALDAMEZ DO, ELANA K 790.29 Oral Glucose Tolerance Test 2-Hour Value Between 140 - 200 04/23/2009 GALDAMEZ DO, ELANA K 790.29 Oral Glucose Tolerance Test 2-Hour Value Between 140 - 200 04/23/2009 FABIOLA DE LEÓN APRNIDI A 790.29 Oral Glucose Tolerance Test 2-Hour Value Between 140 - 200 04/23/2009 GENET STUBBS, SAFIA A 790.29 ORAL GLUCOSE TOLERANCE TEST 2-HOUR VALUE BETWEEN 140 - 200 04/23/2009 FABIOLA DE LEÓN APRNIDI A 790.29 ORAL GLUCOSE TOLERANCE TEST 2-HOUR VALUE BETWEEN 140 - 200 04/23/2009 LYNDON MOON APRNINA R 790.29 ORAL GLUCOSE TOLERANCE TEST 2-HOUR VALUE BETWEEN 140 - 200 04/23/2009 LYNDON MOON APRNINA R 790.29 ORAL GLUCOSE TOLERANCE TEST 2-HOUR VALUE BETWEEN 140 - 200 05/07/2009 381.00 ACUTE NONSUPPURATIVE OTITIS MEDIA UNSPECIFIED 05/07/2009 381.00 ACUTE NONSUPPURATIVE OTITIS MEDIA UNSPECIFIED 05/07/2009 381.00 ACUTE NONSUPPURATIVE OTITIS MEDIA UNSPECIFIED 05/07/2009 381.00 ACUTE NONSUPPURATIVE OTITIS MEDIA UNSPECIFIED 05/07/2009 381.00 ACUTE NONSUPPURATIVE OTITIS MEDIA UNSPECIFIED 05/07/2009 381.00 ACUTE NONSUPPURATIVE OTITIS MEDIA UNSPECIFIED 05/07/2009 381.00 ACUTE NONSUPPURATIVE OTITIS MEDIA UNSPECIFIED 05/07/2009 381.00 ACUTE NONSUPPURATIVE OTITIS MEDIA UNSPECIFIED 05/07/2009 381.00 ACUTE NONSUPPURATIVE OTITIS MEDIA UNSPECIFIED 05/07/2009 GALDAMEZ DO ELANA K 381.00 ACUTE NONSUPPURATIVE OTITIS MEDIA UNSPECIFIED 05/07/2009 GALDAMEZ DO ELANA K 381.00 ACUTE NONSUPPURATIVE OTITIS MEDIA UNSPECIFIED 05/07/2009 GALDAMEZ DO ELANA K 381.00 ACUTE NONSUPPURATIVE OTITIS MEDIA UNSPECIFIED 05/07/2009 GALDAMEZ DO ELANA K 381.00 ACUTE NONSUPPURATIVE OTITIS MEDIA UNSPECIFIED 05/07/2009 GENET ORNAMENTAL IRON WORKER HELPER, SAFIA A 381.00 ACUTE NONSUPPURATIVE OTITIS MEDIA UNSPECIFIED 05/07/2009 GENET ORNAMENTAL IRON WORKER HELPER, SAFIA A 381.00 ACUTE NONSUPPURATIVE OTITIS MEDIA UNSPECIFIED 05/07/2009 GENET ORNAMENTAL IRON WORKER HELPER, SAFIA A 381.00 ACUTE NONSUPPURATIVE OTITIS MEDIA UNSPECIFIED 05/07/2009 SARAI LEVYN, NNEKA R 381.00 ACUTE NONSUPPURATIVE OTITIS MEDIA UNSPECIFIED 05/07/2009 SARAI LEVYN, NNEKA R 381.00 ACUTE NONSUPPURATIVE OTITIS MEDIA UNSPECIFIED 02/22/2010 V69.2 HIGH-RISK SEXUAL BEHAVIOR 02/22/2010 V72.31 SITE HEAD EXAM, ROUTINE 02/22/2010 V69.2 HIGH-RISK SEXUAL BEHAVIOR 02/22/2010 V72.31 SITE HEAD EXAM, ROUTINE 02/22/2010 V69.2 HIGH-RISK SEXUAL BEHAVIOR 02/22/2010 V72.31 SITE HEAD EXAM, ROUTINE 02/22/2010 V69.2 HIGH-RISK SEXUAL BEHAVIOR 02/22/2010 V72.31 SITE HEAD EXAM, ROUTINE 02/22/2010 V69.2 HIGH-RISK SEXUAL BEHAVIOR 02/22/2010 V72.31 SITE HEAD EXAM, ROUTINE 02/22/2010 V69.2 HIGH-RISK SEXUAL BEHAVIOR 02/22/2010 V72.31 SITE HEAD EXAM, ROUTINE 02/22/2010 V69.2 HIGH-RISK SEXUAL BEHAVIOR 02/22/2010 V72.31 SITE HEAD EXAM, ROUTINE 02/22/2010 V69.2 HIGH-RISK SEXUAL BEHAVIOR 02/22/2010 V72.31 SITE HEAD EXAM, ROUTINE 02/22/2010 V69.2 HIGH-RISK SEXUAL BEHAVIOR 02/22/2010 V72.31 SITE HEAD EXAM, ROUTINE 02/22/2010 GALDAMEZ DO ELANA K V69.2 HIGH-RISK SEXUAL BEHAVIOR 02/22/2010 GALDAMEZ DO ELANA K V72.31 SITE HEAD EXAM, ROUTINE 02/22/2010 GALDAMEZ DO ELANA K V69.2 HIGH-RISK SEXUAL BEHAVIOR 02/22/2010 GALDAMEZ DO ELANA K V72.31 SITE HEAD EXAM, ROUTINE 02/22/2010 GALDAMEZ DO ELANA K V69.2 HIGH-RISK SEXUAL BEHAVIOR 02/22/2010 GALDAMEZ DO ELANA K V72.31 SITE HEAD EXAM, ROUTINE 02/22/2010 GALDAMEZ DO ELANA K V69.2 HIGH-RISK SEXUAL BEHAVIOR 02/22/2010 GALDAMEZ DO ELANA K V72.31 SITE HEAD EXAM, ROUTINE 02/22/2010 GENET ORNAMENTAL IRON WORKER HELPER, SAFIA A V69.2 HIGH-RISK SEXUAL BEHAVIOR 02/22/2010 GENET ORNAMENTAL IRON WORKER HELPER, SAFIA A V72.31 SITE HEAD EXAM, ROUTINE 02/22/2010 GENET ORNAMENTAL IRON WORKER HELPER, SAFIA A V69.2 HIGH-RISK SEXUAL BEHAVIOR 02/22/2010 GENET ORNAMENTAL IRON WORKER HELPER, SAFIA A V72.31 SITE HEAD EXAM, ROUTINE 02/22/2010 GENET ORNAMENTAL IRON WORKER HELPER, SAFIA A V69.2 HIGH-RISK SEXUAL BEHAVIOR 02/22/2010 GENET ORNAMENTAL IRON WORKER HELPER, SAFIA A V72.31 SITE HEAD EXAM, ROUTINE 02/22/2010 SARAI ORNAMENTAL IRON WORKER HELPER, NNEKA R V69.2 HIGH-RISK SEXUAL BEHAVIOR 02/22/2010 SARAI ORNAMENTAL IRON WORKER HELPER, NNEKA R V72.31 SITE HEAD EXAM, ROUTINE 02/22/2010 SARAI ORNAMENTAL IRON WORKER HELPER, NNEKA R V69.2 HIGH-RISK SEXUAL BEHAVIOR 02/22/2010 NNEKA MOON APRN R V72.31 SITE HEAD EXAM, ROUTINE 03/04/2010 727.49 OTHER GANGLION AND CYST OF SYNOVIUM, TENDON, AND BURSA 03/04/2010 727.49 OTHER GANGLION AND CYST OF SYNOVIUM, TENDON, AND BURSA 03/04/2010 727.49 OTHER GANGLION AND CYST OF SYNOVIUM, TENDON, AND BURSA 03/04/2010 727.49 OTHER GANGLION AND CYST OF SYNOVIUM, TENDON, AND BURSA 03/04/2010 727.49 OTHER GANGLION AND CYST OF SYNOVIUM, TENDON, AND BURSA 03/04/2010 727.49 OTHER GANGLION AND CYST OF SYNOVIUM, TENDON, AND BURSA 03/04/2010 727.49 OTHER GANGLION AND CYST OF SYNOVIUM, TENDON, AND BURSA 03/04/2010 727.49 OTHER GANGLION AND CYST OF SYNOVIUM, TENDON, AND BURSA 03/04/2010 727.49 OTHER GANGLION AND CYST OF SYNOVIUM, TENDON, AND BURSA 03/04/2010 ELANA GALDAMEZ DO K 727.49 OTHER GANGLION AND CYST OF SYNOVIUM, TENDON, AND BURSA 03/04/2010 ELANA GALDAMEZ DO K 727.49 OTHER GANGLION AND CYST OF SYNOVIUM, TENDON, AND BURSA 03/04/2010 DARYL GALDAMEZ DOA K 727.49 OTHER GANGLION AND CYST OF SYNOVIUM, TENDON, AND BURSA 03/04/2010 GALDAMEZ DARYL GALEASA K 727.49 OTHER GANGLION AND CYST OF SYNOVIUM, TENDON, AND BURSA 03/04/2010 GENET STUBBS, SAFIA A 727.49 OTHER GANGLION AND CYST OF SYNOVIUM, TENDON, AND BURSA 03/04/2010 GENET APRN, SAFIA A 727.49 OTHER GANGLION AND CYST OF SYNOVIUM, TENDON, AND BURSA 03/04/2010 GENET ORNAMENTAL IRON WORKER HELPER, SAFIA A 727.49 OTHER GANGLION AND CYST OF SYNOVIUM, TENDON, AND BURSA 03/04/2010 SARAI STUBBS NNEKA R 727.49 OTHER GANGLION AND CYST OF SYNOVIUM, TENDON, AND BURSA 03/04/2010 SARAI STUBBS NNEKA R 727.49 OTHER GANGLION AND CYST OF SYNOVIUM, TENDON, AND BURSA 04/04/2010 727.41 GANGLION OF JOINT 04/04/2010 727.41 GANGLION OF JOINT 04/04/2010 727.41 GANGLION OF JOINT 04/04/2010 727.41 GANGLION OF JOINT 04/04/2010 727.41 GANGLION OF JOINT 04/04/2010 727.41 GANGLION OF JOINT 04/04/2010 727.41 GANGLION OF JOINT 04/04/2010 727.41 GANGLION OF JOINT 04/04/2010 727.41 GANGLION OF JOINT 04/04/2010 GALDAMEZ DO, ELANA K 727.41 GANGLION OF JOINT 04/04/2010 GALDAMEZ DO, ELANA K 727.41 GANGLION OF JOINT 04/04/2010 GALDAMEZ DO, ELANA K 727.41 GANGLION OF JOINT 04/04/2010 GALDAMEZ DO, ELANA K 727.41 GANGLION OF JOINT 04/04/2010 GENET ORNAMENTAL [employer] WORKER HELPER, SAFIA A 727.41 GANGLION OF JOINT 04/04/2010 GENET ORNAMENTAL IRON WORKER HELPER, SAFIA A 727.41 GANGLION OF JOINT 04/04/2010 GENET ORNAMENTAL IRON WORKER HELPER, SAFIA A 727.41 GANGLION OF JOINT 04/04/2010 SARAI LEVYN, NNEKA R 727.41 GANGLION OF JOINT 04/04/2010 SARAI ORNAMENTAL IRON WORKER HELPER, NNEKA R 727.41 GANGLION OF JOINT 03/04/2011 354.0 CARPAL TUNNEL SYNDROME 03/04/2011 354.0 CARPAL TUNNEL SYNDROME 03/04/2011 354.0 CARPAL TUNNEL SYNDROME 03/04/2011 354.0 CARPAL TUNNEL SYNDROME 03/04/2011 354.0 CARPAL TUNNEL SYNDROME 03/04/2011 354.0 CARPAL TUNNEL SYNDROME 03/04/2011 354.0 CARPAL TUNNEL SYNDROME 03/04/2011 354.0 CARPAL TUNNEL SYNDROME 03/04/2011 354.0 CARPAL TUNNEL SYNDROME 03/04/2011 GALDAMEZ DO, ELANA K 354.0 CARPAL TUNNEL SYNDROME 03/04/2011 GALDAMEZ DO, ELANA K 354.0 CARPAL TUNNEL SYNDROME 03/04/2011 GALDAMEZ DO, ELANA K 354.0 CARPAL TUNNEL SYNDROME 03/04/2011 GALDAMEZ DO, ELANA K 354.0 CARPAL TUNNEL SYNDROME 03/04/2011 GENET ORNAMENTAL IRON WORKER HELPER SAFIA A 354.0 CARPAL TUNNEL SYNDROME 03/04/2011 GENET ORNAMENTAL IRON WORKER HELPER, SAFIA A 354.0 CARPAL TUNNEL SYNDROME 03/04/2011 GENET ORNAMENTAL IRON WORKER HELPER SAFIA A 354.0 CARPAL TUNNEL SYNDROME 03/04/2011 NNEKA MOON APRN R 354.0 CARPAL TUNNEL SYNDROME 03/04/2011 NNEKA MOON APRN R 354.0 CARPAL TUNNEL SYNDROME 10/22/2011 726.73 HEEL SPUR 10/22/2011 V25.9 CONTRACEPTION MANAGEMENT 10/22/2011 V65.3 COUNSELING- OBESITY (DIET) 10/22/2011 V65.45 STD COUNSELING 10/22/2011 V74.5 STD SCREEN 10/22/2011 V76.10 BREAST CANCER SCREENING 10/22/2011 V76.2 CERVICAL CANCER SCREENING (PAP SMEAR) 10/22/2011 726.73 HEEL SPUR 10/22/2011 V25.9 CONTRACEPTION MANAGEMENT 10/22/2011 V65.3 COUNSELING- OBESITY (DIET) 10/22/2011 V65.45 STD COUNSELING 10/22/2011 V74.5 STD SCREEN 10/22/2011 V76.10 BREAST CANCER SCREENING 10/22/2011 V76.2 CERVICAL CANCER SCREENING (PAP SMEAR) 10/22/2011 726.73 HEEL SPUR 10/22/2011 V25.9 CONTRACEPTION MANAGEMENT 10/22/2011 V65.3 COUNSELING- OBESITY (DIET) 10/22/2011 V65.45 STD COUNSELING 10/22/2011 V74.5 STD SCREEN 10/22/2011 V76.10 BREAST CANCER SCREENING 10/22/2011 V76.2 CERVICAL CANCER SCREENING (PAP SMEAR) 10/22/2011 726.73 HEEL SPUR 10/22/2011 V25.9 CONTRACEPTION MANAGEMENT 10/22/2011 V65.3 COUNSELING- OBESITY (DIET) 10/22/2011 V65.45 STD COUNSELING 10/22/2011 V74.5 STD SCREEN 10/22/2011 V76.10 BREAST CANCER SCREENING 10/22/2011 V76.2 CERVICAL CANCER SCREENING (PAP SMEAR) 10/22/2011 726.73 HEEL SPUR 10/22/2011 V25.9 CONTRACEPTION MANAGEMENT 10/22/2011 V65.3 COUNSELING- OBESITY (DIET) 10/22/2011 V65.45 STD COUNSELING 10/22/2011 V74.5 STD SCREEN 10/22/2011 V76.10 BREAST CANCER SCREENING 10/22/2011 V76.2 CERVICAL CANCER SCREENING (PAP SMEAR) 10/22/2011 726.73 HEEL SPUR 10/22/2011 V25.9 CONTRACEPTION MANAGEMENT 10/22/2011 V65.3 COUNSELING- OBESITY (DIET) 10/22/2011 V65.45 STD COUNSELING 10/22/2011 V74.5 STD SCREEN 10/22/2011 V76.10 BREAST CANCER SCREENING 10/22/2011 V76.2 CERVICAL CANCER SCREENING (PAP SMEAR) 10/22/2011 726.73 HEEL SPUR 10/22/2011 V25.9 CONTRACEPTION MANAGEMENT 10/22/2011 V65.3 COUNSELING- OBESITY (DIET) 10/22/2011 V65.45 STD COUNSELING 10/22/2011 V74.5 STD SCREEN 10/22/2011 V76.10 BREAST CANCER SCREENING 10/22/2011 V76.2 CERVICAL CANCER SCREENING (PAP SMEAR) 10/22/2011 726.73 HEEL SPUR 10/22/2011 V25.9 CONTRACEPTION MANAGEMENT 10/22/2011 V65.3 COUNSELING- OBESITY (DIET) 10/22/2011 V65.45 STD COUNSELING 10/22/2011 V74.5 STD SCREEN 10/22/2011 V76.10 BREAST CANCER SCREENING 10/22/2011 V76.2 CERVICAL CANCER SCREENING (PAP SMEAR) 10/22/2011 726.73 HEEL SPUR 10/22/2011 V25.9 CONTRACEPTION MANAGEMENT 10/22/2011 V65.3 COUNSELING- OBESITY (DIET) 10/22/2011 V65.45 STD COUNSELING 10/22/2011 V74.5 STD SCREEN 10/22/2011 V76.10 BREAST CANCER SCREENING 10/22/2011 V76.2 CERVICAL CANCER SCREENING (PAP SMEAR) 10/22/2011 ELANA GALDAMEZ DO 726.73 HEEL SPUR 10/22/2011 ELANA GALDAMEZ DO V25.9 CONTRACEPTION MANAGEMENT 10/22/2011 ELANA GALDAMEZ DO V65.3 COUNSELING- OBESITY (DIET) 10/22/2011 DARYL GALDAMEZ DOA K V65.45 STD COUNSELING 10/22/2011 GALDAMEZ DARYL GALEASA K V74.5 STD SCREEN 10/22/2011 DARYL GALDAMEZ DOA K V76.10 BREAST CANCER SCREENING 10/22/2011 DARYL GALDAMEZ DOA K V76.2 CERVICAL CANCER SCREENING (PAP SMEAR) 10/22/2011 GALDAMEZ DARYL GALEASA K 726.73 HEEL SPUR 10/22/2011 GALDAMEZ DARYL GALEASA K V25.9 CONTRACEPTION MANAGEMENT 10/22/2011 DARYL GALDAMEZ DOA K V65.3 COUNSELING- OBESITY (DIET) 10/22/2011 GALDAMEZ DO ELANA K V65.45 STD COUNSELING 10/22/2011 GALDAMEZ DO ELANA K V74.5 STD SCREEN 10/22/2011 GALDAMEZ DO ELANA K V76.10 BREAST CANCER SCREENING 10/22/2011 GALDAMEZ DO, ELANA K V76.2 CERVICAL CANCER SCREENING (PAP SMEAR) 10/22/2011 GALDAMEZ DO ELANA K 726.73 HEEL SPUR 10/22/2011 GALDAMEZ DO ELANA K V25.9 CONTRACEPTION MANAGEMENT 10/22/2011 GALDAMEZ DO, ELANA K V65.3 COUNSELING- OBESITY (DIET) 10/22/2011 GALDAMEZ DO, ELANA K V65.45 STD COUNSELING 10/22/2011 GALDAMEZ DO ELANA K V74.5 STD SCREEN 10/22/2011 GALDAMEZ DO ELANA K V76.10 BREAST CANCER SCREENING 10/22/2011 GALDAMEZ DO EALNA K V76.2 CERVICAL CANCER SCREENING (PAP SMEAR) 10/22/2011 GALDAMEZ DO ELANA K 726.73 HEEL SPUR 10/22/2011 GALDAMEZ DO ELANA K V25.9 CONTRACEPTION MANAGEMENT 10/22/2011 GALDAMEZ DO ELANA K V65.3 COUNSELING- OBESITY (DIET) 10/22/2011 GALDAMEZ DO ELANA K V65.45 STD COUNSELING 10/22/2011 GALDAMEZ DODARYLA K V74.5 STD SCREEN 10/22/2011 GALDAMEZ DO ELANA K V76.10 BREAST CANCER SCREENING 10/22/2011 GALDAMEZ DO ELANA K V76.2 CERVICAL CANCER SCREENING (PAP SMEAR) 10/22/2011 SAFIA DE LEÓN APRN A 726.73 HEEL SPUR 10/22/2011 GENETFABIOLA Garza APRNIDI A V25.9 CONTRACEPTION MANAGEMENT 10/22/2011 FABIOLA DE LEÓN APRNIDI A V65.3 COUNSELING- OBESITY (DIET) 10/22/2011 FABIOLA DE LEÓN APRNIDI A V65.45 STD COUNSELING 10/22/2011 FABIOLA DE LEÓN APRNIDI A V74.5 STD SCREEN 10/22/2011 FABIOLA DE LEÓN APRNIDI A V76.10 BREAST CANCER SCREENING 10/22/2011 FABIOLA DE LEÓN APRNIDI A V76.2 CERVICAL CANCER SCREENING (PAP SMEAR) 10/22/2011 FABIOLA DE LEÓN APRNIDI A 726.73 HEEL SPUR 10/22/2011 GENET STUBBS SAFIA A V25.9 CONTRACEPTION MANAGEMENT 10/22/2011 FABIOLA DE LEÓN APRNIDI A V65.3 COUNSELING- OBESITY (DIET) 10/22/2011 GENET STUBBS SAFIA A V65.45 STD COUNSELING 10/22/2011 GENET STUBBSSAFIA A V74.5 STD SCREEN 10/22/2011 GENET STUBBSSAFIA A V76.10 BREAST CANCER SCREENING 10/22/2011 GENET STUBBS SAFIA A V76.2 CERVICAL CANCER SCREENING (PAP SMEAR) 10/22/2011 GENET STUBBS SAFIA A 726.73 HEEL SPUR 10/22/2011 GENET STUBBS SAFIA A V25.9 CONTRACEPTION MANAGEMENT 10/22/2011 GENET STUBBS SAFIA A V65.3 COUNSELING- OBESITY (DIET) 10/22/2011 GENET STUBBSSAFIA A V65.45 STD COUNSELING 10/22/2011 GENET STUBBS SAFIA A V74.5 STD SCREEN 10/22/2011 GENET STUBBS SAFIA A V76.10 BREAST CANCER SCREENING 10/22/2011 GENET STUBBSSAFIA A V76.2 CERVICAL CANCER SCREENING (PAP SMEAR) 10/22/2011 LYNDON MOON APRNINA R 726.73 HEEL SPUR 10/22/2011 SARAI STUBBS NNEKA R V25.9 CONTRACEPTION MANAGEMENT 10/22/2011 SARAI STUBBS NNEKA R V65.3 COUNSELING- OBESITY (DIET) 10/22/2011 SARAI STUBBS NNEKA R V65.45 STD COUNSELING 10/22/2011 SARAI STUBBS, NNEKA R V74.5 STD SCREEN 10/22/2011 SARAI STUBBS, NNEKA R V76.10 BREAST CANCER SCREENING 10/22/2011 SARAI STUBBS, NNEKA R V76.2 CERVICAL CANCER SCREENING (PAP SMEAR) 10/22/2011 SARAI STUBBS NNEKA R 726.73 HEEL SPUR 10/22/2011 SARAI STUBBS NNEKA R V25.9 CONTRACEPTION MANAGEMENT 10/22/2011 SARAI STUBBS, NNEKA R V65.3 COUNSELING- OBESITY (DIET) 10/22/2011 SARAI STUBBS, NNEKA R V65.45 STD COUNSELING 10/22/2011 NNEKA MOON APRN V74.5 STD SCREEN 10/22/2011 NNEKA MOON APRN V76.10 BREAST CANCER SCREENING 10/22/2011 NNEKA MOON APRN V76.2 CERVICAL CANCER SCREENING (PAP SMEAR) 01/12/2013 V72.42 TEST POSITIVE RESULT 01/12/2013 V72.42 TEST POSITIVE RESULT 01/12/2013 V72.42 TEST POSITIVE RESULT 01/12/2013 V72.42 TEST POSITIVE RESULT 01/12/2013 V72.42 TEST POSITIVE RESULT 01/12/2013 V72.42 TEST POSITIVE RESULT 01/12/2013 V72.42 TEST POSITIVE RESULT 01/12/2013 V72.42 TEST POSITIVE RESULT 01/12/2013 V72.42 TEST POSITIVE RESULT 01/12/2013 ELANA GALDAMEZ DO K V72.42 TEST POSITIVE RESULT 01/12/2013 ELANA GALDAMEZ DO K V72.42 TEST POSITIVE RESULT 01/12/2013 ELANA GALDAMEZ DO V72.42 TEST POSITIVE RESULT 01/12/2013 ELANA GALDAMEZ DO K V72.42 TEST POSITIVE RESULT 01/12/2013 GENET APRN, SAFIA A V72.42 TEST POSITIVE RESULT 01/12/2013 GENETSAFIA Garza APRN A V72.42 TEST POSITIVE RESULT 01/12/2013 GENETSAFIA Garza APRN A V72.42 TEST POSITIVE RESULT 01/12/2013 NNEKA MOON APRN V72.42 TEST POSITIVE RESULT 01/12/2013 NNEKA MOON APRN V72.42 TEST POSITIVE RESULT 06/16/2013 V06.1 TDAP DX 06/16/2013 V77.1 DIABETES SCREENING 06/16/2013 V78.0 ANEMIA SCREENING 06/16/2013 V06.1 TDAP DX 06/16/2013 V77.1 DIABETES SCREENING 06/16/2013 V78.0 ANEMIA SCREENING 06/16/2013 V06.1 TDAP DX 06/16/2013 V77.1 DIABETES SCREENING 06/16/2013 V78.0 ANEMIA SCREENING 06/16/2013 ELANA GALDAMEZ DO K V06.1 TDAP DX 06/16/2013 ELANA GALDAMEZ DO K V77.1 DIABETES SCREENING 06/16/2013 GALDAMEZ DO, ELANA K V78.0 ANEMIA SCREENING 06/16/2013 GALDAMEZ DO, ELANA K V06.1 TDAP DX 06/16/2013 GALDAMEZ DO, ELANA K V77.1 DIABETES SCREENING 06/16/2013 GALDAMEZ DO, ELANA K V78.0 ANEMIA SCREENING 06/16/2013 GALDAMEZ DO, ELANA K V06.1 TDAP DX 06/16/2013 GALDAMEZ DO, ELANA K V77.1 DIABETES SCREENING 06/16/2013 GALDAMEZ DO, ELANA K V78.0 ANEMIA SCREENING 06/16/2013 GALDAMEZ DO, ELANA K V06.1 TDAP DX 06/16/2013 GALDAMEZ DO, ELANA K V77.1 DIABETES SCREENING 06/16/2013 GALDAMEZ DO, ELANA K V78.0 ANEMIA SCREENING 06/16/2013 GENET ORNAMENTAL IRON WORKER HELPER, SAFIA A V06.1 TDAP DX 06/16/2013 GENET ORNAMENTAL IRON WORKER HELPER, SAFIA A V77.1 DIABETES SCREENING 06/16/2013 GENET ORNAMENTAL IRON WORKER HELPER, SAFIA A V78.0 ANEMIA SCREENING 06/16/2013 GENET ORNAMENTAL IRON WORKER HELPER, SAFIA A V06.1 TDAP DX 06/16/2013 GENET ORNAMENTAL IRON WORKER HELPER, SAFIA A V77.1 DIABETES SCREENING 06/16/2013 GENET ORNAMENTAL IRON WORKER HELPER, SAFIA A V78.0 ANEMIA SCREENING 06/16/2013 GENET ORNAMENTAL IRON WORKER HELPER, SAFIA A V06.1 TDAP DX 06/16/2013 GENET ORNAMENTAL IRON WORKER HELPER, SAFIA A V77.1 DIABETES SCREENING 06/16/2013 GENET ORNAMENTAL IRON WORKER HELPER, SAFIA A V78.0 ANEMIA SCREENING 06/16/2013 SARAI ORNAMENTAL IRON WORKER HELPER, NNEKA R V06.1 TDAP DX 06/16/2013 SARAI ORNAMENTAL IRON WORKER HELPER, NNEKA R V77.1 DIABETES SCREENING 06/16/2013 SARAI ORNAMENTAL IRON WORKER HELPER, NNEKA R V78.0 ANEMIA SCREENING 06/16/2013 SARAI ORNAMENTAL IRON WORKER HELPER, NNEKA R V06.1 TDAP DX 06/16/2013 SARAI ORNAMENTAL IRON WORKER HELPER, NNEKA R V77.1 DIABETES SCREENING 06/16/2013 SARAI ORNAMENTAL IRON WORKER HELPER, NNEKA R V78.0 ANEMIA SCREENING 06/30/2013 648.80 COMPL OF - ABNORMAL GTT 06/30/2013 648.80 COMPL OF - ABNORMAL GTT 06/30/2013 648.80 COMPL OF - ABNORMAL GTT 06/30/2013 GALDAMEZ DO, ELANA K 648.80 COMPL OF - ABNORMAL GTT 06/30/2013 GALDAMEZ DO, ELANA K 648.80 COMPL OF - ABNORMAL GTT 06/30/2013 GALDAMEZ DO, ELANA K 648.80 COMPL OF - ABNORMAL GTT 06/30/2013 GALDAMEZ DO, ELANA K 648.80 COMPL OF - ABNORMAL GTT 06/30/2013 GENET ORNAMENTAL IRON WORKER HELPER, SAFIA A 648.80 COMPL OF - ABNORMAL GTT 06/30/2013 GENET ORNAMENTAL IRON WORKER HELPER, SAFIA A 648.80 COMPL OF - ABNORMAL GTT 06/30/2013 GENET ORNAMENTAL IRON WORKER HELPER, SAFIA A 648.80 COMPL OF - ABNORMAL GTT 06/30/2013 SARAI ORNAMENTAL IRON WORKER HELPER, NNEKA R 648.80 COMPL OF - ABNORMAL GTT 06/30/2013 SARAI ORNAMENTAL IRON WORKER HELPER, NNEKA R 648.80 COMPL OF - ABNORMAL GTT 07/12/2013 V22.0 , NORMAL FIRST 07/12/2013 V22.0 , NORMAL FIRST 07/12/2013 GALDAMEZ DO, ELANA K V22.0 , NORMAL FIRST 07/12/2013 GALDAMEZ DO, ELANA K V22.0 , NORMAL FIRST 07/12/2013 GALDAMEZ DO, ELANA K V22.0 , NORMAL FIRST 07/12/2013 GALDAMEZ DO, ELANA K V22.0 , NORMAL FIRST 07/12/2013 GENET ORNAMENTAL IRON WORKER HELPER, SAFIA A V22.0 , NORMAL FIRST 07/12/2013 GENET ORNAMENTAL IRON WORKER HELPER, SAFIA A V22.0 , NORMAL FIRST 07/12/2013 GENET ORNAMENTAL IRON WORKER HELPER, SAFIA A V22.0 , NORMAL FIRST 07/12/2013 SARAI ORNAMENTAL IRON WORKER HELPER, NNEKA R V22.0 , NORMAL FIRST 07/12/2013 SARAI ORNAMENTAL IRON WORKER HELPER, NNEKA R V22.0 , NORMAL FIRST 07/27/2013 V04.81 FLU SHOT 07/27/2013 GALDAMEZ DO, ELANA K V04.81 FLU SHOT 07/27/2013 GALDAMEZ DO, ELANA K V04.81 FLU SHOT 07/27/2013 GALDAMZE DO, ELANA K V04.81 FLU SHOT 07/27/2013 GALDAMEZ DO, ELANA K V04.81 FLU SHOT 07/27/2013 GENET ORNAMENTAL IRON WORKER HELPER, SAFIA A V04.81 FLU SHOT 07/27/2013 GENET ORNAMENTAL IRON WORKER HELPER, SAFIA A V04.81 FLU SHOT 07/27/2013 GENET LEVYN, SAFIA A V04.81 FLU SHOT 07/27/2013 SARAI STUBBS, NNEKA R V04.81 FLU SHOT 07/27/2013 SARAI STUBBS, NNEKA R V04.81 FLU SHOT 08/03/2013 CATHLEEN JARA MD N Ot 655.73 DECR MOVEMNT ANTEPARTUM CONDITION 08/26/2013 CATHLEEN JARA MD N Ot 599.0 URIN TRACT INFECTION NOS 08/26/2013 CATHLEEN JARA MD N Ot 646.63 INFECTION-ANTEPARTUM 08/29/2013 ELANA GALDAMEZ DO 642.90 COMPL OF - HTN/PIH 08/29/2013 ELANA GALDAMEZ DO 649.60 UTERINE SIZE DATE DISCREPANCY - LGA 08/29/2013 ELANA GALDAMEZ DO V23.9 , HIGH-RISK (UNSPEC) 08/29/2013 GENET STUBBS, SAFIA A 642.90 COMPL OF - HTN/PIH 08/29/2013 GENET LEVYN, SAFIA A 649.60 UTERINE SIZE DATE DISCREPANCY - LGA 08/29/2013 GENET LEVYN, SAFIA A V23.9 , HIGH-RISK (UNSPEC) 08/29/2013 GENET STUBBS, SAFIA A 642.90 COMPL OF - HTN/PIH 08/29/2013 GENET STUBBS, SAFIA A 649.60 UTERINE SIZE DATE DISCREPANCY - LGA 08/29/2013 GENET ORNAMENTAL IRON WORKER HELPER, SAFIA A V23.9 , HIGH-RISK (UNSPEC) 08/29/2013 GENET ORNAMENTAL IRON WORKER HELPER, SAFIA A 642.90 COMPL OF - HTN/PIH 08/29/2013 GENET ORNAMENTAL IRON WORKER HELPER, SAFIA A 649.60 UTERINE SIZE DATE DISCREPANCY - LGA 08/29/2013 GENET ORNAMENTAL IRON WORKER HELPER, SAFIA A V23.9 , HIGH-RISK (UNSPEC) 08/29/2013 NNEKA MOON APRN R 642.90 COMPL OF - HTN/PIH 08/29/2013 SARAI ORNAMENTAL IRON WORKER HELPER, NNEKA R 649.60 UTERINE SIZE DATE DISCREPANCY - LGA 08/29/2013 SARAI STUBBS NNEKA R V23.9 , HIGH-RISK (UNSPEC) 08/29/2013 NNEKA MOON APRN R 642.90 COMPL OF - HTN/PIH 08/29/2013 LYNDON MOON APRNINA R 649.60 UTERINE SIZE DATE DISCREPANCY - LGA 08/29/2013 NNEKA MOON APRN R V23.9 , HIGH-RISK (UNSPEC) 08/30/2013 ESTEFANI BINGHAM, CATHLEEN N Ot 658.03 OLIGOHYDRAMNIOS-ANTEPAR 09/02/2013 ESTEFANI BINGHAM, CATHLEEN N Ot 642.31 TRANS HYPERTEN-DELIVERED 09/02/2013 ESTEFANI BINGHAM, CATHLEEN N Ot 658.01 OLIGOHYDRAMNIOS-DELIVER 09/02/2013 ESTEFANI BINGHAM, CATHLEEN N Ot 659.71 ABN DEL FET HT RT/RHYTHM,W OR W/O MENTIO 09/02/2013 ESTEFANI BINGHAM, CATHLEEN N Ot 660.41 SHOULDER DYSTOCIA-DELIV 09/02/2013 ESTEFANI BINGHAM, CATHLEEN N Ot 663.31 CORD ENTANGLE NEC-DELIV 09/02/2013 ESTEFANI BINGHAM, CATHLEEN N Ot V27.0 DELIVER-SINGLE LIVEBORN 10/18/2013 SAFIA DE LEÓN APRN V25.09 CONTRACEPTIVE COUNSELING - GENERAL 10/18/2013 SAFIA DE LEÓN APRN A V25.09 CONTRACEPTIVE COUNSELING - GENERAL 10/18/2013 SAFIA DE LEÓN APRN V25.09 CONTRACEPTIVE COUNSELING - GENERAL 10/18/2013 NNEKA MOON APRN R V25.09 CONTRACEPTIVE COUNSELING - GENERAL 10/18/2013 NNEKA MOON APRN R V25.09 CONTRACEPTIVE COUNSELING - GENERAL 11/07/2013 SAFIA DE LEÓN APRN A V25.11 IUD INSERTION 11/07/2013 SAFIA DE LEÓN APRN A V25.11 IUD INSERTION 11/07/2013 NNEKA MOON APRN R V25.11 IUD INSERTION 11/07/2013 NNEKA MOON APRN R V25.11 IUD INSERTION 12/19/2013 SAFIA DE LEÓN APRN V25.42 CONTRACEPTION SURVEILLANCE (IUD) 12/19/2013 SARAI ORNAMENTAL IRON WORKER HELPER, NNEKA R V25.42 CONTRACEPTION SURVEILLANCE (IUD) 12/19/2013 SARAI STUBBS NNEKA R V25.42 CONTRACEPTION SURVEILLANCE (IUD) 06/06/2014 KAISER VALLEJO ORNAMENTAL IRON WORKER HELPER Ot 724.5 BACKACHE NOS 06/06/2014 [employer] VALLEJO ORNAMENTAL IRON WORKER HELPER Ot 847.9 SPRAIN OF BACK NOS 06/06/2014 [employer]IS[employer] VALLEJO ORNAMENTAL IRON WORKER HELPER Ot E927.0 OVEREXERTION FROM SUDDEN STRENUOUS MOVEM 10/25/2014 SARAI STUBBS NNEKA R 788.1 DYSURIA 10/25/2014 SARAI STUBBS NNEKA R 788.1 DYSURIA 11/07/2014 ELANA GALDAMEZ DO Ot 790.22 11/07/2014 ELANA GALDAMEZ DO K Ot V22.2 02/15/2015 NNEKA MOON APRN R 784.0 HEADACHE 02/15/2015 NNEKA MOON APRN R 787.02 NAUSEA ALONE 10/17/2015 Ot V22.1 10/17/2015 ELANA GALDAMEZ DO Ot V28.89 10/17/2015 ELANA GALDAMEZ DO Ot 790.22 10/17/2015 ELANA GALDAMEZ DO K Ot V22.2 10/17/2015 SAFIA DE LEÓN APRN Ot V22.1 10/17/2015 SAFIA DE LEÓN APRN Ot 790.29 10/17/2015 ESTEFANI BINGHAM, CATHLEEN Garza Ot 642.33 08/09/2016 Ot V22.1 SUPERVIS OTH NORMAL PREG 08/09/2016 ELANA GALDAMEZ DO Ot V28.89 OTHER SPECIFIED SCREENING 08/09/2016 ELANA GALDAMEZ DO Ot 790.22 IMPAIRED GLUCOSE TOLERANCE TEST (ORAL) 08/09/2016 ELANA GALDAMEZ DO Ot V22.2 PREG STATE, INCIDENTAL 08/09/2016 SAFIA DE LEÓN APRN Ot V22.1 SUPERVIS OTH NORMAL PREG 08/09/2016 SAFIA DE LEÓN APRN Ot 790.29 OTHER ABNORMAL GLUCOSE 08/09/2016 CATHLEEN JARA MD Ot 642.33 TRANS HYPERTEN-ANTEPART 08/09/2016 GEORGE ESTEBAN APRN Ot 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 08/09/2016 GEORGE ESTEBAN APRN Ot N60.12 DIFFUSE CYSTIC MASTOPATHY OF LEFT BREAST 08/09/2016 GEORGE ESTEBAN APRN Ot Z87.898 PERSONAL HISTORY OF OTHER SPECIFIED COND 08/12/2016 ELBERT FRIEDMAN DO Emma Ot F17.210 NICOTINE DEPENDENCE, CIGARETTES, UNCOMPL 08/12/2016 IDALIA DOELBERT Ot N12 TUBULO-INTERSTITIAL NEPHRITIS, NOT SPCF 08/12/2016 ELBERT FRIEDMAN DO Ot R10.32 LEFT LOWER QUADRANT PAIN Procedures Code Description [place] [address] URINE TEST (IN- HOUSE) 01/12/2013 74792 US OB - EARLY <14 WEEKS 02/09/2013 32053 UA OB DIP 02/09/2013 15247 [facility] 02/09/2013 03354 ANTIBODY SCREEN (order) 02/09/2013 59282 CULTURE URINE 02/09/2013 02939 HEP B SURFACE ANTIGEN (STATE ) 02/09/2013 14905 CBC 02/09/2013 44316 TSH 02/09/2013 63755 BLOOD TYPE/Rh FACTOR 02/09/2013 7327423 ANTIBODY SCREEN (RESULT ONLY) 02/09/2013 84013 HIV ANTIBODIES (RML) 02/09/2013 34084 RUBELLA ANTIBODY, IGG 02/10/2013 91533 UA OB DIP 03/11/2013 76313 US OB - COMPLETE >14 WEEKS 03/11/2013 12856 GC/CHLAM PROBE ([facility]) 03/11/2013 94579 TRICHOMONAS (IN-HOUSE) 03/11/2013 06214 CULTURE UROGENITAL 03/14/2013 59866 ROUTINE VENIPUNCTURE 04/06/2013 81880 UA OB DIP 04/06/2013 05952 GLUCOSE AN 1 HOUR 04/07/2013 TETRA TETRA SCREEN 04/11/2013 46476 GLUCOSE AN 3 HOUR 04/13/2013 33497 US OB - COMPLETE >14 WEEKS 04/15/2013 96771 UA OB DIP 04/27/2013 83697 UA OB DIP 06/30/2013 78162 UA OB DIP 07/12/2013 62262 GLUCOSE FINGER STICK 07/12/2013 80011 UA OB DIP 07/27/2013 31765 UA OB DIP 08/10/2013 27934 CULTURE GROUP B STREP VAG 08/10/2013 15833 NON-STRESS TEST 08/17/2013 59180 UA OB DIP 08/17/2013 23579 UA OB DIP 08/24/2013 19940 US OB - FOLLOW UP 08/24/2013 19766 NON-STRESS TEST 08/29/2013 73890 UA OB DIP 08/29/2013 73.4 08/31/2013 73.59 08/31/2013 91989 URINE TEST (IN- HOUSE) 10/18/2013 48807 IUD INSERTION 11/07/2013 J7302 LEVONORGESTREL IU CONTRACEPT 11/07/2013 02328 URINE TEST (IN- HOUSE) 11/07/2013 54990 CULTURE URINE 10/25/2014 76228 UA W/ CULTURE IF INDICATED 10/25/2014 Results Test Result Range Complete urinalysis with reflex to culture - 08/09/16 20:30 Urine color determination YELLOW NRG Urine clarity determination SLIGHTLY CLOUDY NRG Urine pH measurement by test strip 5 5-9 Specific gravity of urine by test strip 1.020 1.016- 1.022 Urine protein assay by test strip, semi-quantitative 1+ NEGATIVE Urine glucose detection by automated test strip NEGATIVE NEGATIVE Erythrocytes detection in urine sediment by light microscopy 4+ NEGATIVE Urine ketones detection by automated test strip NEGATIVE NEGATIVE Urine nitrite detection by test strip NEGATIVE NEGATIVE Urine total bilirubin detection by test strip NEGATIVE NEGATIVE Urine urobilinogen measurement by automated test strip (mass/volume) NORMAL NORMAL Urine leukocyte esterase detection by dipstick 3+ NEGATIVE Automated urine sediment erythrocyte count by microscopy (number/high power field) [HPF] NRG Automated urine sediment leukocyte count by microscopy (number/high power field ) [HPF] NRG Bacteria detection in urine sediment by light microscopy FEW NRG Squamous epithelial cells detection in urine sediment by light microscopy 10 NRG Crystals detection in urine sediment by light microscopy NONE NRG Casts detection in urine sediment by light microscopy NONE NRG Mucus detection in urine sediment by light microscopy NEGATIVE NRG Complete urinalysis with reflex to culture YES NRG Bacterial urine culture - 08/09/16 20:30 Bacterial urine culture [id number] NRG COLONY COUNT >100,000/ML NRG FTX;REPORTABLE SENSITIVITY REPORTED AT 0829. 9-26-16 NRG URINE CULTURE RESULTS PLUS NRG Bacterial susceptibility panel - 08/09/16 20:30 Gentamicin susceptibility test by minimum inhibitory concentration < = NRG Trimethoprim/sulfamethoxazole susceptibility test by minimum inhibitoryconcentration <= NRG Ampicillin susceptibility test by minimum inhibitory concentration < = NRG Tobramycin susceptibility test by minimum inhibitory concentration < = NRG Cefazolin susceptibility test by minimum inhibitory concentration < = NRG Ceftriaxone susceptibility test by minimum inhibitory concentration <= NRG Ampicillin/sulbactam susceptibility test by minimum inhibitory concentration <= NRG Piperacillin/tazobactam susceptibility test by minimum inhibitory concentration <= NRG Ciprofloxacin susceptibility test by minimum inhibitory concentration <= NRG Meropenem susceptibility test by minimum inhibitory concentration < = NRG Nitrofurantoin susceptibility test by minimum inhibitory concentration <= NRG Aztreonam susceptibility test by minimum inhibitory concentration < = NRG Extended spectrum beta lactamase (ESBL) producing bacteria susceptibility test by minimum inhibitory concentration - NRG CULTURE, GENITAL - 11/27/17 14:44 CULTURE, GENITAL SEE NOTE NRG Encounters ACCT No. Visit Date/Time Discharge Status Pt. Type Provider Facility Loc./Unit Complaint [id number] 02/15/2015 15:44:00 02/15/2015 23:59:59 CLS Outpatient SARAI STUBBSNNEKA [id number] 10/25/2014 08:49:00 10/25/2014 23:59:59 CLS Outpatient SARAI STUBBSNNEKA [id number] 12/19/2013 10:01:00 12/19/2013 23:59:59 CLS Outpatient SAFIA DE LEÓN APRN Debbie [id number] 11/07/2013 08:28:00 11/07/2013 23:59:59 CLS Outpatient FABIOLA DE LEÓN APRNCLIVE Lewis [id number] 10/18/2013 14:32:00 10/18/2013 23:59:59 CLS Outpatient SAFIA DE LEÓN APRN Debbie [id number] 08/24/2013 15:10:00 08/24/2013 23:59:59 CLS Outpatient ELANA GALDAMEZ DO [id number] 08/17/2013 15:08:00 08/17/2013 23:59:59 CLS Outpatient ELANA GALDAMEZ DO [id number] 08/17/2013 15:08:00 08/17/2013 23:59:59 CLS Outpatient ELANA GALDAMEZ DO [id number] 08/10/2013 14:10:00 08/10/2013 23:59:59 CLS Outpatient ELANA GALDAMEZ DO [id number] 02/09/2013 09:56:00 02/09/2013 23:59:59 CLS Outpatient [id number] 01/12/2013 11:38:00 01/12/2013 23:59:59 CLS Outpatient [id number] 07/27/2013 16:25:00 Document Registration [id number] 07/12/2013 15:56:00 Document Registration [id number] 06/30/2013 15:02:00 Document Registration [id number] 04/27/2013 14:45:00 Document Registration [id number] 04/06/2013 15:42:00 Document Registration [id number] 04/06/2013 15:42:00 Document Registration [id number] 03/11/2013 10:32:00 Document Registration [id number] 11/27/2017 13:20:00 11/27/2017 23:59:59 CLS Outpatient CATHLEEN JARA MD [facility] [id number] 11/27/2017 13:20:00 Document Registration [id number] 08/09/2016 20:05:00 08/09/2016 21:34:00 DIS Outpatient ELBERT FRIEDMAN DO [facility] ER STOMACH PAIN, L SIDE BACK PAIN [id number] 11/13/2015 14:16:00 11/13/2015 23:59:59 CLS Outpatient GEORGE ESTEBAN APRN [facility] RAD NIPPLE DISCHARGE [id number] 06/06/2014 09:48:00 06/06/2014 11:18:00 DIS Emergency KAISER VALLEJO ORNAMENTAL IRON WORKER HELPER [facility] ER BACK PAIN [id number] 08/31/2013 06:14:00 09/02/2013 20:35:00 DIS Inpatient CATHLEEN JARA MD [facility] WS INDUCTION [id number] 08/30/2013 11:11:00 08/30/2013 13:05:00 DIS Outpatient CATHLEEN JARA MD [facility] RAD LARGE FOR GEST AGE [id number] 08/27/2013 18:35:00 08/27/2013 23:59:59 CLS Outpatient CATHLEEN JARA MD [facility] LAB INDUCED HYPERTENSION [id number] 08/26/2013 13:43:00 08/26/2013 19:56:00 DIS Outpatient CATHLEEN JARA MD [facility] WSo C/O LBP [id number] 08/03/2013 04:16:00 08/03/2013 05:30:00 DIS [facility] [id number] 06/20/2013 09:47:00 06/20/2013 23:59:59 CLS Outpatient SAFIA DE LEÓN APRN [facility] LAB ELEVATED 1 HR GTT [id number] 06/02/2013 12:58:00 06/02/2013 23:59:59 CLS Outpatient SAFIA DE LEÓN APRN [facility] RAD LIMITED FOR FOUR CHAMBER VIEW-STOMACH AND BLADDER [id number] 04/15/2013 13:10:00 04/15/2013 23:59:59 CLS Outpatient ELANA GALDAMEZ DO [facility] RAD SURVEY [id number] 04/14/2013 10:32:00 04/14/2013 23:59:59 CLS Outpatient ELANA GALDAMEZ DO [facility] LAB [id number] 02/14/2013 09:17:00 Document Registration
[2018-08-15] MEDS ORDERED: RX-TRIMETH/SULFA. 160-800 MG (BACTRIM DS) TAB PPK#2 PO STA (23:47)
[2018-08-15] MEDS ORDERED: SULF1TAB35 PO (23:50)
--- NOTE | 2018-08-15 23:51 | ED Integumentary General ---
General Chief Complaint: Bite-Animal/Human/Insect Stated Complaint: INSECT BITE Nursing Triage Note: Pt c/o bug bite on R side of ankle. Pt c/o itching that began around 1600 and pt noticed wheel approximately an hour ago. Source: patient Exam Limitations: no limitations History of Present Illness Date Seen by Provider: Aug 15, 2018 Time Seen by Provider: 23:30 Initial Comments PT ARRIVES VIA POV FROM HOME C/O "BUG BITE" TO RIGHT LOWER LEG/ANKLE AREA STATES SHE WORKED ALL DAY AT [employer] DID NOT SEE OR FEEL ANYTHING BITE HER AREA WAS A LITTLE ITCHY AROUND 1600, BUT HAS NOT BEEN ITCHING SINCE THEN IMMEDIATELY PRIOR TO ARRIVAL, SHE NOTICED REDNESS AROUND THE AREA AND IT IS SLIGHTLY SORE NOW, SO CAME STRAIGHT TO ER HAS NOT TAKEN ANYTHING OR APPLIED ANYTHING TO THE AREA. NO DRAINAGE OR STREAKS NO HISTORY OF SIMILAR. LAST TETANUS IS UNKNOWN Allergies and Home Medications Allergies Coded Allergies: No Known Drug Allergies (Verified , 10/09/08) Home Medications Fluconazole 200 Mg Tablet, 200 MG PO DAILY Prescribed by: ELBERT FRIEDMAN on 08/09/162110 Levofloxacin 500 Mg Tablet, 500 MG PO DAILY Prescribed by: ELBERT FRIEDMAN on 08/09/162110 Sulfamethoxazole/Trimethoprim 1 Each Tablet, 1 EACH PO BID Prescribed by: ELBERT FRIEDMAN on 08/15/182349 Tramadol HCl 50 Mg Tablet, 50 MG PO Q4H Prescribed by: ELBERT FRIEDMAN on 08/09/162110 Patient Home Medication List Home Medication List Reviewed: Yes Review of Systems Review of Systems Constitutional: no symptoms reported : No (MIRENA IUD IN PLACE SINCE 10/2013) LMP: Apr 16, 2014 (MIRENA IUD IN PLACE SINCE 10/2013) Musculoskeletal: see HPI Skin: see HPI Psychiatric/Neurological: No Symptoms Reported Past Pxupvrj-Suxxmc-Ennchq Hx Patient Social History Alcohol Use: Occasionally Uses Recreational Drug Use: Yes (THC) Smoking Status: Current Everyday Smoker (1 PPD) Type Used: Cigarettes Recent Foreign Travel: No Contact w/Someone Who Travel: No Recent Infectious Disease Expo: No Recent Hopitalizations: Yes (delivery 2002) Immunizations Up To Date Tetanus Booster (TDap): Unknown PED Vaccines UTD: Yes Date of Influenza Vaccine: Aug 01, 2013 Past Medical History Surgeries: Yes (BMT'S AGE 6) Ear Surgery Respiratory: No Cardiac: No Neurological: No : No Reproductive Disorders: No 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 Genitourinary: Yes Kidney Infection, Bladder Infection Gastrointestinal: No Musculoskeletal: No Endocrine: Yes (" PRE-DIABETIC" ) Cancer: No Psychosocial: No Integumentary: No Blood Disorders: No Physical Exam Vital Signs Vital Signs - First Documented 08/15/18 22:59 Temp 98.0 Pulse 91 Resp 18 B/P (MAP) 129/87 (101) Pulse Ox 97 O2 Delivery Room Air Capillary Refill : Less Than 3 Seconds General Appearance: WD/WN, no apparent distress Extremities: normal range of motion, non-tender, no pedal edema, other (DISTAL ASPECT OF RIGHT LOWER LEG, ABOVE LATERAL MALLEOLUS, WITH 4 CM AREA OF MILD ERYTHEMA AND CENTRAL PUNCTATION. NO DRAINAGE, NO INDURATION, NO WARMTH, NO TENDERNESS, NO FLUCTUANCE. NO STREAKS. 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 II-XII nml as tested, no motor/sensory deficits, alert, normal mood/affect, oriented x 3 Skin: normal color, warm/dry, other ( ABOVE) Progress/Results/Core Measures Results/Orders My Orders Orders - ELBERT FRIEDMAN DO Rx-Trimeth/Sulfameth Ds Tab (Rx-Bactrim/ (08/15/18 23:47) Prednisone Tablet (Deltasone Tablet) (08/16/18 00:00) Medications Given in ED Current Medications Medications Dose Ordered Sig/Ambika Route Start Time Stop Time Status Last Admin Dose Admin Prednisone 40 mg ONCE ONCE PO 08/16/18 00:00 08/16/18 00:01 DC 08/15/18 23:58 40 MG Vital Signs/I&O 08/15/18 08/15/18 22:59 23:59 Temp 98.0 98.2 Pulse 91 76 Resp 18 12 B/P (MAP) 129/87 (101) 123/80 Pulse Ox 97 97 O2 Delivery Room Air Room Air Blood Pressure Mean: 101 Progress Progress Note : Progress Note OFFERED TETANUS SHOT, BUT PT DECLINES, STATES SHE WILL GET ONE AT [facility]. Departure Impression Primary Impression: Insect bite of right lower leg with local reaction Disposition: HOME, SELF-CARE Condition: Stable Departure-Patient Inst. Referrals: ELANA GALDAMEZ DO (PCP/Family) Primary Care Physician Patient Instructions: Insect Bites and Stings (DC) Add. Discharge Instructions: BENADRYL CREAM AND HYDROCORTISONE CREAM TO AREA 3-4 TIMES A DAY NEEDED FOR INFLAMMATION AND ITCHING TYLENOL AND MOTRIN NEEDED FOR PAIN ICE TO AREA AT 20 MINUTE INTERVALS FOLLOW UP WITH YOUR DR IN 2-3 DAYS IF NO BETTER All discharge instructions reviewed with patient and/or family. Voiced understanding. Scripts Sulfamethoxazole/Trimethoprim (Bactrim Ds Tablet) 1 Each Tablet 1 EACH PO BID, #20 TAB Prov: ELBERT FRIEDMAN DO 08/15/18 Images Extremities-Lower 1 - ELBERT FRIEDMAN DO Aug 15, 2018 23:50
[2018-08-15 23:59] VITALS: BP 123/80
[2018-08-16] MEDS ORDERED: predniSONE 20 MG TAB PO ONE
== END 2018-08-16 00:02 | disposition home or self-care (01) ==
LOC: EDUNIT# 22:50 → ER 22:51
DX: S80.861A Insect bite (nonvenomous), right lower leg, initial encounter (principal); F12.10 Cannabis abuse, uncomplicated; F17.210 Nicotine dependence, cigarettes, uncomplicated; Z87.448 Personal history of other diseases of urinary system; W57.XXXA Bitten or stung by nonvenomous insect and other nonvenomous arthropods, initial encounter
CPT/HCPCS: 99283

== ENCOUNTER 2019-02-14 11:33 | Emergency (ER) | payer SELFPAY ==
[~2019-02-14] VITALS: Ht 162.6 cm; Wt 90.7 kg
[~2019-02-14 11:33] MED LIST changes: +SULF1TAB35 PO
[2019-02-14] MEDS ORDERED: AMOX500C2 PO (13:14)
[2019-02-14] MEDS ORDERED: HYDR-4226 PO (13:14)
--- NOTE | 2019-02-14 13:14 | ED EENT ---
History of Present Illness General Chief Complaint: Dental Problems/Pain Stated Complaint: DENTAL PAIN Nursing Triage Note: states dental pain, left wisdom tooth. states "falling apart" Source: patient Exam Limitations: no limitations History of Present Illness Date Seen by Provider: Feb 14, 2019 Time Seen by Provider: 13:11 Initial Comments To ER with left upper dental pain. States her tooth is cracked. Does not have insurance, call [facility] and they do not have anybody to extract teeth at this time. States she needs antibiotics. No swelling. Timing/Duration: abrupt Severity: moderate Location: dental Prearrival Treatment: no prearrival treatment Associated Symptoms: facial pain/swelling Allergies and Home Medications Allergies Coded Allergies: No Known Drug Allergies (Verified , 10/09/08) Home Medications Fluconazole 200 Mg Tablet, 200 MG PO DAILY Prescribed by: ELBERT FRIEDMAN on 08/09/162110 Levofloxacin 500 Mg Tablet, 500 MG PO DAILY Prescribed by: ELBERT FRIEDMAN on 08/09/162110 Sulfamethoxazole/Trimethoprim 1 Each Tablet, 1 EACH PO BID Prescribed by: ELBERT FRIEDMAN on 08/15/182349 Tramadol HCl 50 Mg Tablet, 50 MG PO Q4H Prescribed by: ELBERT FRIEDMAN on 08/09/162110 Patient Home Medication List Home Medication List Reviewed: Yes Review of Systems Review of Systems Constitutional: see HPI Eyes: No Symptoms Reported Ears: No Symptoms Reported Nose: no symptoms reported Mouth: see HPI, pain Throat: no symptoms reported Respiratory: no symptoms reported Cardiovascular: no symptoms reported Musculoskeletal: no symptoms reported Skin: no symptoms reported Neurological: No Symptoms Reported Hematologic/Lymphatic: No Symptoms Reported Immunological/Allergic: no symptoms reported Past Hlzhlow-Dgtyyp-Wrbdjs Hx Patient Social History Type Used: Cigarettes Recent Foreign Travel: No Contact w/Someone Who Travel: No Recent Infectious Disease Expo: No Recent Hopitalizations: Yes (delivery 2002) Immunizations Up To Date Tetanus Booster (TDap): Unknown PED Vaccines UTD: Yes Date of Influenza Vaccine: Aug 01, 2013 Past Medical History Surgeries: Yes (BMT'S AGE 6) Ear Surgery Respiratory: No Cardiac: No Neurological: No 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 oz. 90.594471hp; BMI Method:Estimated General Appearance: WD/WN, no apparent distress Eyes: bilateral eye normal inspection, bilateral eye PERRL, bilateral eye EOMI Ears: bilateral ear auricle normal, bilateral ear canal normal, bilateral ear TM normal Mouth/Throat: normal mouth inspection, other (dental caries and tenderness but no fluctuant abscess) Respiratory: no respiratory distress, no accessory muscle use Gastrointestinal: normal bowel sounds, non tender Neurologic/Psychiatric: alert, normal mood/affect, oriented x 3 Skin: normal color, warm/dry No visible facial swelling Progress/Results/Core Measures Results/Orders Vital Signs/I&O 02/14/19 13:02 Temp 99.0 Pulse 61 Resp 18 B/P (MAP) 130/80 (97) Pulse Ox 99 O2 Delivery Room Air Blood Pressure Mean: 97 Departure Impression Primary Impression: Dental caries Additional Impression: Pain, dental Disposition: HOME, SELF-CARE Condition: Stable Departure-Patient Inst. Decision time for Depature: 13:12 Referrals: NO,LOCAL PHYSICIAN (PCP/Family) Primary Care Physician Patient Instructions: Dental Pain Add. Discharge Instructions: 1. This pain medication can be very addicting, so do not take it anymore than absolutely necessary. Supplement with Orajel and ibuprofen. Follow-up with your dentist and buttocks as directed. All discharge instructions reviewed with patient and/or family. Voiced understanding. Scripts Hydrocodone/Acetaminophen ([place] 5-325 Tablet) 1 Each Tablet 1 EACH PO Q6H PRN for PAIN-MODERATE MDD 10, #14 TAB Prov: KAISER VALLEJO APRN 02/14/19 Amoxicillin (Amoxicillin) 500 Mg Capsule 500 MG PO TID, #21 CAP Prov: KAISER VALLEJO APRN 02/14/19 Work/School Note: Work Release Form Date Seen in the Emergency Department: Feb 14, 2019 Return to Work: Feb 15, 2019 Restrictions: her Images Mouth/Nose 1 - Caries, Fracture Tooth, Tenderness KAISER VALLEJO APRN Feb 14, 2019 13:14
[2019-02-14 13:19] VITALS: BP 130/80
== END 2019-02-14 13:20 | disposition home or self-care (01) ==
LOC: EDUNIT# 11:33 → ER 11:34
DX: K02.9 Dental caries, unspecified (principal); Z97.5 Presence of (intrauterine) contraceptive device; Z87.448 Personal history of other diseases of urinary system
CPT/HCPCS: 99282

== ENCOUNTER 2019-03-15 09:00 | Emergency (ER) | payer SELFPAY ==
[~2019-03-15] VITALS: Ht 157.5 cm; Wt 113.4 kg
[~2019-03-15 09:00] MED LIST changes: +HYDR-4226 PO
--- OUTSIDE RECORDS SUMMARY | 2019-03-15 09:05 | XMS REPORT ---
Author Author Migration, Doctor Organization [facility] Address Unknown Phone Unavailable Care Team Providers Care Dough Sheeter Name Role Phone Migration, Doctor Unavailable Unavailable PROBLEMS Type Condition ICD9-CM Code MGJ06-QU Code Onset Dates Condition Status SNOMED Code Problem Breast tenderness N64.4 Active 84719953 Problem Absence of menses due to use of contraceptive N91.2 Active 78022472 Problem History of nipple discharge Z87.898 Active 960589246 Problem Pre-diabetes R73.09 Active 1098787 Problem Surveillance for control, intrauterine device Z30.431 Active 727760876 Problem GERD (gastroesophageal reflux disease) K21.9 Active 152313484 Problem History of galactorrhea Z87.59 Active 961704792 Problem History of anxiety Z86.59 Active 073093748 Problem History of depression Z86.59 Active 586497607 Problem Left leg pain M79.605 Active 859706730 ALLERGIES No Information ENCOUNTERS Encounter Location Date Diagnosis [facility] [address] [place] [address] Oct, Sore throat J02.9 ; Strep pharyngitis J02.0 and BMI 45.0- 49.9, adult Z68.42 [facility] [id number] [place] [address] Aug, Cellulitis of right lower extremity L03.115 and Insect bite , initial encounter W57.XXXA [facility] [address] [place] [address]- 7789 Nov, [facility] [address] [address] 12 Nov, 2017 Surveillance for control, intrauterine device Z30.431 ; Pelvic pain R10.2 and BMI 40.0-44.9, adult Z68.41 [facility] [id number] [place] [address] 8460 Nov, [facility] [address] [place] [address]- [address] Aug, UTI (urinary tract infection) N39.0 [facility] [id number] [id number] 09 Jun, 2016 Dental examination Z01.20 [place] [place] [address] [place] [address]930[address]58 Nov, Pre-diabetes R73.09 ; Left leg pain M79.605 and GERD ( gastroesophageal reflux disease) K21.9 [place] [id number] [place] [address] 16697- 9033 Nov, Well woman exam Z01.419 ; History of depression Z86.59 and Family history of diabetes mellitus Z83.3 [place] [address] [place] [address]791- 1017 Nov, Left leg pain M79.605 [place] [address] [place] [address] 9[address]18- [address]67 04 Nov, 2015 Well woman exam Z01.419 ; Family history of diabetes mellitus Z83.3 ; History of depression Z86.59 ; History of anxiety Z86.59 ; Surveillance for control, intrauterine device Z30.431 ; Breast tenderness N64.4 ; History of galactorrhea Z87.59 and Left leg pain M79.605 [place] [address] [place] [address]- [address] Oct, [place] [address] [place] [address] 29746- [address]271 Oct, History of nipple discharge Z87.898 [place] [address] [place] [address] [id number]- 9555 Oct, Surveillance for control, intrauterine device Z30.431 ; History of nipple discharge Z87.898 ; Breast tenderness N64.4 ; Vaginal discharge N89.8 ; Screening for malignant neoplasm of cervix Z12.4 ; Absence of menses due to use of contraceptive N91.2 ; Unprotected sexual intercourse Z72.51 ; Abdominal bloating R14.0 ; Fibrocystic breast, right N60.11 and Fibrocystic breast, left N60.12 [facility] [address] [place] [address] 14 Feb, 2015 [facility] [id number] [address] 13 Feb, 2015 [facility] [address] [place] [address] 15 Oct, 2014 [facility] [id number] [place] [address] 494745- 9519 Oct, [facility] [address] [address] Oct, [facility] [id number] [place] [address] 74035- 5803 Oct, [facility] [address] [address] Oct, [facility] [address] [address] Dec, [facility] [address] [address] Dec, [facility] [address] [address] Oct, [facility] [address] [address] Oct, [facility] [address] Oct, [facility] [address] Oct, [facility] [address] [address] Aug, [facility] [place] [facility] [address] [id number] [place] [address] 14 Aug, 2013 [facility] [place] [facility] [address] [id number] [place] [address] Aug, [facility] [place] [facility] [address] [id number] [place] [address] 8414 Aug, [facility] [place] [facility] [address] [id number] [place] [address] 4269 Aug, [facility] [place] [facility] [address] [id number] [place] [address]60 Aug, [facility] [place] [facility] [address] [id number] [place] [address] 8448 Aug, [facility] [place] [facility] [address] [id number] [place] [address] 4095 Jul, [facility] [place] [facility] [address] [id number], [place] [address] Jul, [facility] [place] [facility] [address] [id number] [place] [address]- 7512 Jul, [facility] [place] [facility] [address] [id number], [place] [address] 06 Jul, 2013 [facility] [place] [facility] [address] [id number], [place] [address] Jun, [facility] [place] [facility] [address] [id number], [place] [address] 8747 Jun, [facility] [place] [facility] [address] [id number] [place] [address]- 5115 Jun, [facility] [place] [facility] [address] [id number], [place] [address] Jun, [facility] [place] [facility] [address] [id number] [place] [address] Jun, [facility] [place] [facility] [address] [id number] [place] [address]15 May, [facility] [address] [id number] [place] [address] Apr, [facility] [address] [id number] [place] [address]- [address] Apr, [facility] [address] [id number] [place] [address]- 7857 Apr, [facility] [place] [facility] [address] [id number] [place] [address]- [address]104 Apr, [facility] [address] [id number] [place] [address]- 45[address] March, [facility] [address] [id number] [place] [address] March, [facility] [address] [id number] [place] [address]- 5514 March, [facility] [address] [id number] [place] [address]- 6481 March, [facility] [address] [id number] [place] [address]- 0554 March, [facility] [address] [id number] [place] [address]- 7071 March, [facility] [address] [id number] [place] [address]- 4007 March, [facility] [place] [facility] [address] [id number] [place] [address]- 3424 Feb, [facility] [place] [facility] [address] [id number] [place] [address]- 2082 Feb, [facility] [place] [facility] [address] [id number] [place] [address]- 2151 Feb, [facility] [place] [facility] [address] [id number] [place] [address]- 5141 Jan, [facility] [place] [facility] [address] [facility] [id number], [place] [address]- [address] 28 Jan, 2013 [facility] [address] [facility] [id number], [place] [address]- [address] Jan, [facility] [address] [facility] [id number], [place] [address] Dec, [facility] [address] [facility] [id number], [place] [address]- 3881 Jun, [facility] [address] [facility] [id number], [place] [address]- 8566 13 Jan, 2012 [facility] [address] [facility] [id number], [place] [address]- [address] Nov, [facility] [id number] [address]- [address] Nov, [facility] [address], [place] [address]- [address] 16 Oct, 2011 [facility] [address], [place] [address]- 34[address] Oct, [facility] [address], [place] [address]- 5[address] Oct, [facility] [id number], [place] [address]- [address] Oct, [facility] [address], [place] [address]- 6[address] Feb, [facility] [id number] Feb, [facility] [address] [address] 30 Oct, 2009 [facility] [address] [facility] [id number], [place] [address]- [address] March, IMMUNIZATIONS No Known Immunizations SOCIAL HISTORY Never Assessed REASON FOR VISIT EMR-[facility] PLAN OF CARE VITAL SIGNS MEDICATIONS Unknown Medications RESULTS No Results PROCEDURES No Known procedures INSTRUCTIONS MEDICATIONS ADMINISTERED No Known Medications MEDICAL (GENERAL) HISTORY Type Description Date Medical History Pre-diabetes Surgical History myringotomy with ventilating tube age 6
--- OUTSIDE RECORDS SUMMARY | 2019-03-15 09:05 | XMS REPORT ---
Author Author Migration, Doctor Organization [facility] Address Unknown Phone Unavailable Care Team Providers Care Ruby On Rails Software Developer Name Role Phone Migration, Doctor Unavailable Unavailable PROBLEMS Type Condition ICD9-CM Code NRN52-PQ Code Onset Dates Condition Status SNOMED Code Problem Breast tenderness N64.4 Active 88247714 Problem Absence of menses due to use of contraceptive N91.2 Active 17178214 Problem History of nipple discharge Z87.898 Active 384742671 Problem Pre-diabetes R73.09 Active 4758767 Problem Surveillance for control, intrauterine device Z30.431 Active 700650633 Problem GERD (gastroesophageal reflux disease) K21.9 Active 066552375 Problem History of galactorrhea Z87.59 Active 038456307 Problem History of anxiety Z86.59 Active 602637995 Problem History of depression Z86.59 Active 567487776 Problem Left leg pain M79.605 Active 002632738 ALLERGIES No Information ENCOUNTERS Encounter Location Date Diagnosis [facility] [id number] [place] [address] 86511 -0060 Oct, Sore throat J02.9 ; Strep pharyngitis J02.0 and BMI 45.0- 49.9, adult Z68.42 [facility] IN [facility] [id number] [place] [address] 63049 -6268 Aug, Cellulitis of right lower extremity L03.115 and Insect bite , initial encounter W57.XXXA [facility] [place] [facility] [address] [place] [address] 36458- 0826 Nov, [facility] [place] [facility] [address] [address]- 6552 Nov, Surveillance for control, intrauterine device Z30.431 ; Pelvic pain R10.2 and BMI 40.0-44.9, adult Z68.41 [facility] [place] [facility] [id number] [place] [address] 62663- 5000 Nov, [facility] [place] [facility] [address] [place] [address] 48528- 0646 Aug, UTI (urinary tract infection) N39.0 [facility] [id number] [id number] 09 Jun, 2016 Dental examination Z01.20 [place] [address] [place] [address] 27047- 4772 Nov, Pre-diabetes R73.09 ; Left leg pain M79.605 and GERD ( gastroesophageal reflux disease) K21.9 [place] [id number] [place] [address] 51825- 8322 Nov, Well woman exam Z01.419 ; History of depression Z86.59 and Family history of diabetes mellitus Z83.3 [place] [address] [place] [address] 24087- 6030 Nov, Left leg pain M79.605 [place] [address] [place] [address] 41550- 0519 04 Nov, 2015 Well woman exam Z01.419 ; Family history of diabetes mellitus Z83.3 ; History of depression Z86.59 ; History of anxiety Z86.59 ; Surveillance for control, intrauterine device Z30.431 ; Breast tenderness N64.4 ; History of galactorrhea Z87.59 and Left leg pain M79.605 [place] [address] [place] [address] 70786- 4072 Oct, [place] [address] [place] [address] 70693- 0139 Oct, History of nipple discharge Z87.898 [place] [address] [place] [address] [id number]- 1177 Oct, Surveillance for control, intrauterine device Z30.431 ; History of nipple discharge Z87.898 ; Breast tenderness N64.4 ; Vaginal discharge N89.8 ; Screening for malignant neoplasm of cervix Z12.4 ; Absence of menses due to use of contraceptive N91.2 ; Unprotected sexual intercourse Z72.51 ; Abdominal bloating R14.0 ; Fibrocystic breast, right N60.11 and Fibrocystic breast, left N60.12 [facility] [facility] [address] [place] [address] 62[address] 14 Feb, 2015 [facility] [place] [facility] [id number], [place] [address] 2870 13 Feb, 2015 [facility] [place] [facility] [address] [place] [address] 4099 15 Oct, 2014 [facility] [place] [facility] [id number] [place] [address] 870322- 2303 Oct, [facility] [place] [facility] [address], [place] [address]- 9527 Oct, [facility] [place] [facility] [id number] [place] [address] 14449- 3264 Oct, [facility] [place] [facility] [address], [place] [address] 0039 Oct, [facility] [place] [facility] [address], [place] [address] 2058 Dec, [facility] [facility] [address], [place] [address]- 9519 Dec, [facility] [place] [facility] [address], [place] [address] 6029 Oct, [facility] [place] [facility] [address], [place] [address]- 2542 Oct, [facility] [place] [facility] [address] 9406 Oct, [facility] [place] [facility] [address] 1246 Oct, [facility] [place] [facility] [address], [place] [address]- 0666 Aug, [facility] [place] [facility] [address] [id number] [place] [address]- 7173 14 Aug, 2013 [facility] [place] [facility] [address] [id number] [place] [address]- 0588 Aug, [facility] [place] [facility] [address] [id number] [place] [address]- 1293 Aug, [facility] [place] [facility] [address] [id number] [place] [address]- 7243 Aug, [facility] [place] [facility] [address] [id number] [place] [address]- 8101 Aug, [facility] [place] [facility] [address] [id number] [place] [address]- 5042 Aug, [facility] [place] [facility] [address] [id number] [place] [address]- 1592 Jul, [facility] [place] [facility] [address] [id number], [place] [address]- 3427 Jul, [facility] [place] [facility] [address] [id number] [place] [address]- 5453 Jul, [facility] [place] [facility] [address] [id number], [place] [address]- 9079 06 Jul, 2013 [facility] [place] [facility] [address] [id number], [place] [address]- 0549 Jun, [facility] [place] [facility] [address] [id number], [place] [address]- 6899 Jun, [facility] [place] [facility] [address] [id number] [place] [address]- 0338 Jun, [facility] [place] [facility] [address] [id number], [place] [address]- 8311 Jun, [facility] [place] [facility] [address] [id number] [place] [address]- 2063 Jun, [facility] [place] [facility] [address] [id number] [place] [address]- 5736 May, [facility] [address] [id number] [place] [address]- 5201 Apr, [facility] [address] [id number] [place] [address]- 9696 Apr, [facility] [address] [id number] [place] [address]- 9377 Apr, [facility] [place] [facility] [address] [id number] [place] [address]- 7107 Apr, [facility] [address] [id number] [place] [address]- 4150 March, [facility] [address] [id number] [place] [address]- 2734 March, [facility] [address] [id number] [place] [address]- 9699 March, [facility] [address] [id number] [place] [address]- 2581 March, [facility] [address] [id number] [place] [address]- 7777 March, [facility] [address] [id number] [place] [address]- 8721 March, [facility] [address] [id number] [place] [address]- 4829 March, [facility] [place] [facility] [address] [id number] [place] [address]- 8412 Feb, [facility] [place] [facility] [address] [id number] [place] [address]- 9583 Feb, [facility] [place] [facility] [address] [id number] [place] [address]- 2622 Feb, [facility] [place] [facility] [address] [id number] [place] [address]- 4745 Jan, [facility] [place] [facility] [address] [facility] [id number], [place] [address]- 3726 Jan, [facility] [place] [facility] [address] [facility] [id number], [place] [address]- 0868 Jan, [facility] [place] [facility] [address] [facility] [id number], [place] [address]- 6139 Dec, [facility] [place] [facility] [address], [place] [address]- 0449 Jun, [facility] [place] [facility] [address] [facility] [id number], [place] [address]- 4904 13 Jan, 2012 [facility] [place] [facility] [address], [place] [address]- 1155 Nov, [facility] [place] [facility] [address], [place] [address]- 0795 Nov, [facility] [place] [facility] [address], [place] [address]- 3341 16 Oct, 2011 [facility] [place] [facility] [address], [place] [address]- 4674 Oct, [facility] [place] [facility] [address], [place] [address]- 1630 Oct, [facility] [place] [facility] [address] [id number], [place] [address]- 7301 Oct, [facility] [place] [facility] [address], [place] [address]- 1618 Feb, [facility] [place] [facility] [address] [id number], [place] [address]- 6257 Feb, [facility] [place] [facility] [address], [place] [address]- 6868 Oct, [facility] [place] [facility] [address] [id number] 2473 March, IMMUNIZATIONS No Known Immunizations SOCIAL HISTORY Never Assessed REASON FOR VISIT EMR-Reji PLAN OF CARE VITAL SIGNS MEDICATIONS Medication Instructions Dosage Frequency Start Date End Date Duration Status Pyridium 200 mg 1 tablet by Oral route 3 times per day for 3 day(s) for bladder pain Oct, Active Cipro 500 mg 1 tablet by Oral route every 12 hours for 10 day(s) Oct Active RESULTS No Results PROCEDURES No Known procedures INSTRUCTIONS MEDICATIONS ADMINISTERED No Known Medications MEDICAL (GENERAL) HISTORY Type Description Date Medical History Pre-diabetes Surgical History myringotomy with ventilating tube age 6
--- OUTSIDE RECORDS SUMMARY | 2019-03-15 09:06 | XMS REPORT ---
Author Author Migration, Doctor Organization [facility] Address Unknown Phone Unavailable Care Team Providers Care Tube Mill Operator Name Role Phone Migration, Doctor Unavailable Unavailable PROBLEMS Type Condition ICD9-CM Code NGS93-ZX Code Onset Dates Condition Status SNOMED Code Problem Breast tenderness N64.4 Active 90258356 Problem Absence of menses due to use of contraceptive N91.2 Active 21254451 Problem History of nipple discharge Z87.898 Active 903823182 Problem Pre-diabetes R73.09 Active 1482436 Problem Surveillance for control, intrauterine device Z30.431 Active 994758817 Problem GERD (gastroesophageal reflux disease) K21.9 Active 962672734 Problem History of galactorrhea Z87.59 Active 784527439 Problem History of anxiety Z86.59 Active 471799428 Problem History of depression Z86.59 Active 047838795 Problem Left leg pain M79.605 Active 822867897 ALLERGIES No Information ENCOUNTERS Encounter Location Date Diagnosis [facility] IN [facility] [address] [place] [address] 48030 -6570 Oct, Sore throat J02.9 ; Strep pharyngitis J02.0 and BMI 45.0- 49.9, adult Z68.42 [facility] [id number] [place] [address] 55754 -0015 Aug, Cellulitis of right lower extremity L03.115 and Insect bite , initial encounter W57.XXXA [facility] [address] [place] [address] 49767- 6017 Nov, [facility] [address] [address]- 4275 12 Nov, 2017 Surveillance for control, intrauterine device Z30.431 ; Pelvic pain R10.2 and BMI 40.0-44.9, adult Z68.41 [facility] [id number] [place] [address] 04761- 3402 Nov, [facility] [address] [place] [address] 25299- 5141 Aug, UTI (urinary tract infection) N39.0 [facility] [id number] [id number] 09 Jun, 2016 Dental examination Z01.20 [place] [address] [place] [address] 97807- 8686 Nov, Pre-diabetes R73.09 ; Left leg pain M79.605 and GERD ( gastroesophageal reflux disease) K21.9 [place] [id number] [place] [address] 87457- 4124 Nov, Well woman exam Z01.419 ; History of depression Z86.59 and Family history of diabetes mellitus Z83.3 [place] [address] [place] [address] 02789- 1982 Nov, Left leg pain M79.605 [place] [address] [place] [address] 01817- 3548 04 Nov, 2015 Well woman exam Z01.419 ; Family history of diabetes mellitus Z83.3 ; History of depression Z86.59 ; History of anxiety Z86.59 ; Surveillance for control, intrauterine device Z30.431 ; Breast tenderness N64.4 ; History of galactorrhea Z87.59 and Left leg pain M79.605 [place] [address] [place] [address] 18203- 5079 Oct, [place] [address] [place] [address] 23596- 3804 Oct, History of nipple discharge Z87.898 [place] [address] [place] [address] 96964410- 5338 Oct, Surveillance for control, intrauterine device Z30.431 ; History of nipple discharge Z87.898 ; Breast tenderness N64.4 ; Vaginal discharge N89.8 ; Screening for malignant neoplasm of cervix Z12.4 ; Absence of menses due to use of contraceptive N91.2 ; Unprotected sexual intercourse Z72.51 ; Abdominal bloating R14.0 ; Fibrocystic breast, right N60.11 and Fibrocystic breast, left N60.12 [facility] [address] [place] [address]- 6551 14 Feb, 2015 [facility] [address] [id number] [address]- 4573 13 Feb, 2015 [facility] [address] [place] [address]- 7184 15 Oct, 2014 [facility] [id number] [place] [address] 194286- 0768 Oct, [facility] [address], [place] [address]- 5509 Oct, [facility] [id number] [place] [address] 19148- 9388 Oct, [facility] [address], [place] [address]- 8723 Oct, [facility] [address], [place] [address]- 4333 Dec, [facility] [address], [place] [address]- 9138 Dec, [facility] [address], [place] [address]- 5146 Oct, [facility] [address], [place] [address]- 2549 Oct, [facility] [address] 0706 Oct, [facility] [address] 5396 Oct, [facility] [address], [place] [address]- 9158 Aug, [facility] [place] [facility] [address] [id number] [place] [address]- 2109 14 Aug, 2013 [facility] [place] [facility] [address] [id number] [place] [address]- 2785 Aug, [facility] [place] [facility] [address] [id number] [place] [address]- 0800 Aug, [facility] [place] [facility] [address] [id number] [place] [address]- 0997 Aug, [facility] [place] [facility] [address] [id number] [place] [address]- 3058 Aug, [facility] [place] [facility] [address] [id number] [place] [address]- 2548 Aug, [facility] [place] [facility] [address] [id number] [place] [address]- 0698 Jul, [facility] [place] [facility] [address] [id number], [place] [address]- 7469 Jul, [facility] [place] [facility] [address] [id number] [place] [address]- 0904 Jul, [facility] [place] [facility] [address] [id number], [place] [address]- 7359 06 Jul, 2013 [facility] [place] [facility] [address] [id number], [place] [address]- 1280 Jun, [facility] [place] [facility] [address] [id number], [place] [address]- 0767 Jun, [facility] [place] [facility] [address] [id number] [place] [address]- 2244 Jun, [facility] [place] [facility] [address] [id number], [place] [address]- 5066 Jun, [facility] [place] [facility] [address] [id number] [place] [address]- 2104 Jun, [facility] [place] [facility] [address] [id number] [place] [address]- 0686 May, [facility] [address] [id number] [place] [address]- 3806 Apr, [facility] [address] [id number] [place] [address]- 8244 Apr, [facility] [address] [id number] [place] [address]- 9487 Apr, [facility] [place] [facility] [address] [id number] [place] [address]- 3526 Apr, [facility] [address] [id number] [place] [address]- 6322 March, [facility] [address] [id number] [place] [address]- 9035 March, [facility] [address] [id number] [place] [address]- 5587 March, [facility] [address] [id number] [place] [address]- 5456 March, [facility] [address] [id number] [place] [address]- 2680 March, [facility] [address] [id number] [place] [address]- 5752 March, [facility] [address] [id number] [place] [address]- 5440 March, [facility] [place] [facility] [address] [id number] [place] [address]- 0615 Feb, [facility] [place] [facility] [address] [id number] [place] [address]- 2622 Feb, [facility] [place] [facility] [address] [id number] [place] [address]- 6943 Feb, [facility] [place] [facility] [address] [id number] [place] [address]- 1993 Jan, [facility] [place] [facility] [address] [facility] [id number], [place] [address]- 6784 28 Jan, 2013 [facility] [address] [facility] [id number], [place] [address]- 7429 Jan, [facility] [address] [facility] [id number], [place] [address]- 8933 Dec, [facility] [address] [facility] [id number], [place] [address]- 5395 Jun, [facility] [address] [facility] [id number], [place] [address]- 3305 13 Jan, 2012 [facility] [address] [facility] [id number], [place] [address]- 6855 Nov, [facility] [address] [id number], [place] [address]- 6828 Nov, [facility] [address], [place] [address]- 2618 16 Oct, 2011 [facility] [address], [place] [address]- 2166 Oct, [facility] [address], [place] [address]- 8235 Oct, [facility] [address] [id number], [place] [address]- 2221 Oct, [facility] [address], [place] [address]- 1396 Feb, [facility] [address] [id number] 5705 Feb, [facility] [address] [address]- 8368 30 Oct, 2009 [facility] [address] [facility] [id number], [place] [address]- 4771 March, IMMUNIZATIONS No Known Immunizations SOCIAL HISTORY Never Assessed REASON FOR VISIT EMR-[facility] PLAN OF CARE VITAL SIGNS MEDICATIONS Unknown Medications RESULTS No Results PROCEDURES No Known procedures INSTRUCTIONS MEDICATIONS ADMINISTERED No Known Medications MEDICAL (GENERAL) HISTORY Type Description Date Medical History Pre-diabetes Surgical History myringotomy with ventilating tube age 6
--- OUTSIDE RECORDS SUMMARY | 2019-03-15 09:06 | XMS REPORT ---
Author Author Migration, Doctor Organization [facility] Address Unknown Phone Unavailable Care Team Providers Care Florist Designer Name Role Phone Migration, Doctor Unavailable Unavailable PROBLEMS Type Condition ICD9-CM Code HMA07-FN Code Onset Dates Condition Status SNOMED Code Problem Breast tenderness N64.4 Active 67027832 Problem Absence of menses due to use of contraceptive N91.2 Active 56344024 Problem History of nipple discharge Z87.898 Active 957423914 Problem Pre-diabetes R73.09 Active 7978350 Problem Surveillance for control, intrauterine device Z30.431 Active 118848886 Problem GERD (gastroesophageal reflux disease) K21.9 Active 870339079 Problem History of galactorrhea Z87.59 Active 471057053 Problem History of anxiety Z86.59 Active 791398223 Problem History of depression Z86.59 Active 543164721 Problem Left leg pain M79.605 Active 287926970 ALLERGIES No Information ENCOUNTERS Encounter Location Date Diagnosis [facility] WALK IN [facility] [address] [place] [address]19 -5581 Oct, Sore throat J02.9 ; Strep pharyngitis J02.0 and BMI 45.0- 49.9, adult Z68.42 [facility] [id number] [place] [address]23 -7639 Aug, Cellulitis of right lower extremity L03.115 and Insect bite , initial encounter W57.XXXA [facility] [address] [place] [address] 34451- 9511 Nov, [facility] [address] [address]- 1433 12 Nov, 2017 Surveillance for control, intrauterine device Z30.431 ; Pelvic pain R10.2 and BMI 40.0-44.9, adult Z68.41 [facility] [id number] [place] [address] 26704- 4709 Nov, [facility] [address] [place] [address] 08381- 3682 Aug, UTI (urinary tract infection) N39.0 [facility] [address] [id number] [id number] 09 Jun, 2016 Dental examination Z01.20 [place] [address] [place] [address] 48894- 5400 Nov, Pre-diabetes R73.09 ; Left leg pain M79.605 and GERD ( gastroesophageal reflux disease) K21.9 [place] [id number] [place] [address] 04409- 9145 Nov, Well woman exam Z01.419 ; History of depression Z86.59 and Family history of diabetes mellitus Z83.3 [place] [address] [place] [address] 87172- 5429 Nov, Left leg pain M79.605 [place] [address] [place] [address] 05761- 6929 04 Nov, 2015 Well woman exam Z01.419 ; Family history of diabetes mellitus Z83.3 ; History of depression Z86.59 ; History of anxiety Z86.59 ; Surveillance for control, intrauterine device Z30.431 ; Breast tenderness N64.4 ; History of galactorrhea Z87.59 and Left leg pain M79.605 [place] [address] [place] [address] 31835- 6345 Oct, [place] [address] [place] [address] 45996- 7799 Oct, History of nipple discharge Z87.898 [place] [address] [place] [address] 94004942- 4636 Oct, Surveillance for control, intrauterine device Z30.431 ; History of nipple discharge Z87.898 ; Breast tenderness N64.4 ; Vaginal discharge N89.8 ; Screening for malignant neoplasm of cervix Z12.4 ; Absence of menses due to use of contraceptive N91.2 ; Unprotected sexual intercourse Z72.51 ; Abdominal bloating R14.0 ; Fibrocystic breast, right N60.11 and Fibrocystic breast, left N60.12 [facility] [address] [place] [address] 4[address] 14 Feb, 2015 [facility] [address] [id number] [address] 4590 13 Feb, 2015 [facility] [address] [place] [address] 5634 15 Oct, 2014 [facility] [id number] [place] [address] 778756- 5677 Oct, [facility] [address] [address] 1401 Oct, [facility] [id number] [place] [address] 93662- 8518 Oct, [facility] [address] [address] 6083 Oct, [facility] [address] [address] 8930 Dec, [facility] [address] [address]- 3447 Dec, [facility] [address] [address] 9009 Oct, [facility] [address] [address]- 2544 Oct, [facility] [address] 4836 Oct, [facility] [address] 0856 Oct, [facility] [address] [address] 2009 Aug, [facility] [place] [facility] [address] [id number] [place] [address]- 0392 14 Aug, 2013 [facility] [place] [facility] [address] [id number] [place] [address]- 2932 Aug, [facility] [place] [facility] [address] [id number] [place] [address]- 9104 Aug, [facility] [place] [facility] [address] [id number] [place] [address]- 2285 Aug, [facility] [place] [facility] [address] [id number] [place] [address]- 4044 Aug, [facility] [place] [facility] [address] [id number] [place] [address]- 0765 Aug, [facility] [place] [facility] [address] [id number] [place] [address]- 3103 Jul, [facility] [place] [facility] [address] [id number] [place] [address]- 1721 Jul, [facility] [place] [facility] [address] [id number] [place] [address]- 2036 Jul, [facility] [place] [facility] [address] [id number] [place] [address]- 6851 06 Jul, 2013 [facility] [place] [facility] [address] [id number] [place] [address]- 4763 Jun, [facility] [place] [facility] [address] [id number] [address]- 2885 Jun, [facility] [place] [facility] [address] [id number] [place] [address]- 7167 Jun, [facility] [place] [facility] [address] [id number] [address]- 9010 Jun, [facility] [place] [facility] [address] [id number] [place] [address]- 0156 Jun, [facility] [place] [facility] [address] [id number] [place] [address]- 5094 May, [facility] [address] [id number] [place] [address]- 0725 Apr, [facility] [address] [id number] [place] [address]- 5512 Apr, [facility] [address] [id number] [place] [address]- 3363 Apr, [facility] [place] [facility] [address] [id number] [place] [address]- 7526 Apr, [facility] [address] [id number] [place] [address]- 1394 March, [facility] [address] [id number] [place] [address]- 7510 March, [facility] [address] [id number] [place] [address]- 2212 March, [facility] [address] [id number] [place] [address]- 8108 March, [facility] [address] [id number] [place] [address]- 2378 March, [facility] [address] [id number] [place] [address]- 4338 March, [facility] [address] [id number] [place] [address]- 8831 March, [facility] [place] [facility] [address] [id number] [place] [address]- 4052 Feb, [facility] [place] [facility] [address] [id number] [place] [address]- 0349 Feb, [facility] [place] [facility] [address] [id number] [place] [address]- 8205 Feb, [facility] [place] [facility] [address] [id number] [place] [address]- 3503 Jan, [facility] [place] [facility] [address] [facility] [id number] [place] [address]- 8537 28 Jan, 2013 [facility] [address] [facility] [id number] [place] [address]- 4783 Jan, [facility] [address] [facility] [id number] [place] [address]- 0358 Dec, [facility] [address] [facility] [id number] [place] [address]- 8358 Jun, [facility] [address] [facility] [id number] [place] [address]- 7466 13 Jan, 2012 [facility] [address] [facility] [id number] [place] [address]- 6631 Nov, [facility] [id number] [address]- 7688 Nov, [facility] [address] [address]- 0912 16 Oct, 2011 [facility] [address] [address]- 5347 Oct, [facility] [address] [address]- 6853 Oct, [facility] [address] [id number] [address]- 8468 Oct, [facility] [address] [address]- 4227 Feb, [facility] [address] [id number] 6573 Feb, [facility] [address] [address] 6374 30 Oct, 2009 [facility] [address] [facility] [id number] [place] [address]- 4920 March, IMMUNIZATIONS No Known Immunizations SOCIAL HISTORY Never Assessed REASON FOR VISIT [place] [place] C[place] VITAL SIGNS MEDICATIONS Unknown Medications RESULTS No Results PROCEDURES No Known procedures INSTRUCTIONS MEDICATIONS ADMINISTERED No Known Medications MEDICAL (GENERAL) HISTORY Type Description Date Medical History Pre-diabetes Surgical History myringotomy with ventilating tube age 6
--- OUTSIDE RECORDS SUMMARY | 2019-03-15 09:06 | XMS REPORT ---
Author Author Migration, Doctor Organization [facility] Address Unknown Phone Unavailable Care Team Providers Care Traveling Inventory Associate Name Role Phone Migration, Doctor Unavailable Unavailable PROBLEMS Type Condition ICD9-CM Code SEE08-XD Code Onset Dates Condition Status SNOMED Code Problem Breast tenderness N64.4 Active 58915620 Problem Absence of menses due to use of contraceptive N91.2 Active 39201795 Problem History of nipple discharge Z87.898 Active 035534302 Problem Pre-diabetes R73.09 Active 8983303 Problem Surveillance for control, intrauterine device Z30.431 Active 921083560 Problem GERD (gastroesophageal reflux disease) K21.9 Active 310913960 Problem History of galactorrhea Z87.59 Active 675249555 Problem History of anxiety Z86.59 Active 879706122 Problem History of depression Z86.59 Active 048970092 Problem Left leg pain M79.605 Active 260645871 ALLERGIES No Information ENCOUNTERS Encounter Location Date Diagnosis [facility] WALK IN [facility] [address] [place] [address] 58145 -9168 Oct, Sore throat J02.9 ; Strep pharyngitis J02.0 and BMI 45.0- 49.9, adult Z68.42 [facility] IN [facility] [id number] [place] [address] 24783 -0786 Aug, Cellulitis of right lower extremity L03.115 and Insect bite , initial encounter W57.XXXA [facility] [address] [place] [address] 19850- 4149 Nov, [facility] [address] [address]- 8417 12 Nov, 2017 Surveillance for control, intrauterine device Z30.431 ; Pelvic pain R10.2 and BMI 40.0-44.9, adult Z68.41 [facility] [id number] [place] [address] 84796- 0074 Nov, [facility] [address] [place] [address] 73546- 9999 Aug, UTI (urinary tract infection) N39.0 [facility] [id number] [address] 09 Jun, 2016 Dental examination Z01.20 [place] [address] [place] [address] 13280- 7274 Nov, Pre-diabetes R73.09 ; Left leg pain M79.605 and GERD ( gastroesophageal reflux disease) K21.9 [place] [id number] [place] [address] 58921- 8297 Nov, Well woman exam Z01.419 ; History of depression Z86.59 and Family history of diabetes mellitus Z83.3 [place] [address] [place] [address] 31259- 4411 Nov, Left leg pain M79.605 [place] [address] [place] [address] 27687- 9776 04 Nov, 2015 Well woman exam Z01.419 ; Family history of diabetes mellitus Z83.3 ; History of depression Z86.59 ; History of anxiety Z86.59 ; Surveillance for control, intrauterine device Z30.431 ; Breast tenderness N64.4 ; History of galactorrhea Z87.59 and Left leg pain M79.605 [place] [address] [place] [address] 62688- 2811 Oct, [place] [address] [place] [address] 02306- 5985 Oct, History of nipple discharge Z87.898 [place] [address] [place] [address] 67629011- 4795 Oct, Surveillance for control, intrauterine device Z30.431 ; History of nipple discharge Z87.898 ; Breast tenderness N64.4 ; Vaginal discharge N89.8 ; Screening for malignant neoplasm of cervix Z12.4 ; Absence of menses due to use of contraceptive N91.2 ; Unprotected sexual intercourse Z72.51 ; Abdominal bloating R14.0 ; Fibrocystic breast, right N60.11 and Fibrocystic breast, left N60.12 [facility] [address] [place] [address]- 6943 14 Feb, 2015 [facility] [address] [id number] [address]- 0250 13 Feb, 2015 [facility] [address] [place] [address]- 7376 15 Oct, 2014 [facility] [id number] [place] [address] 702652- 3037 Oct, [facility] [address], [place] [address]- 0573 Oct, [facility] [id number] [place] [address] 49985- 9004 Oct, [facility] [address], [place] [address]- 3399 Oct, [facility] [address], [place] [address]- 0765 Dec, [facility] [address] [address]- 4573 Dec, [facility] [address], [place] [address]- 4887 Oct, [facility] [address], [place] [address]- 254 Oct, [facility] [address] 4406 Oct, [facility] [address] 3356 Oct, [facility] [address], [place] [address]- 2151 Aug, [facility] [place] [facility] [address] [id number] [place] [address]- 4093 14 Aug, 2013 [facility] [place] [facility] [address] [id number] [place] [address]- 6964 Aug, [facility] [place] [facility] [address] [id number] [place] [address]- 3189 Aug, [facility] [place] [facility] [address] [id number] [place] [address]- 4813 Aug, [facility] [place] [facility] [address] [id number] [place] [address]- 4719 Aug, [facility] [place] [facility] [address] [id number] [place] [address]- 6503 Aug, [facility] [place] [facility] [address] [id number] [place] [address]- 3368 Jul, [facility] [place] [facility] [address] [id number][place] [address]- 3370 Jul, [facility] [place] [facility] [address] [id number] [place] [address]- 5733 Jul, [facility] [place] [facility] [address] [id number], [place] [address]- 5892 06 Jul, 2013 [facility] [place] [facility] [address] [id number][place] [address]- 3601 Jun, [facility] [place] [facility] [address] [id number][place] [address]- 4688 Jun, [facility] [place] [facility] [address] [id number] [place] [address]- 9253 Jun, [facility] [place] [facility] [address] [id number], [place] [address]- 1521 Jun, [facility] [place] [facility] [address] [id number] [place] [address]- 7366 Jun, [facility] [place] [facility] [address] [id number] [place] [address]- 3040 May, [facility] [address] [id number] [place] [address]- 7776 Apr, [facility] [address] [id number] [place] [address]- 9563 Apr, [facility] [address] [id number] [place] [address]- 8119 Apr, [facility] [place] [facility] [address] [id number] [place] [address]- 1012 Apr, [facility] [address] [id number] [place] [address]- 9237 March, [facility] [address] [id number] [place] [address]- 0587 March, [facility] [address] [id number] [place] [address]- 2652 March, [facility] [address] [id number] [place] [address]- 5412 March, [facility] [address] [id number] [place] [address]- 2118 March, [facility] [address] [id number] [place] [address]- 6987 March, [facility] [address] [id number] [place] [address]- 5735 March, [facility] [place] [facility] [address] [id number] [place] [address]- 9393 Feb, [facility] [place] [facility] [address] [id number] [place] [address]- 9841 Feb, [facility] [place] [facility] [address] [id number] [place] [address]- 3472 Feb, [facility] [place] [facility] [address] [id number] [place] [address]- 7986 Jan, [facility] [place] [facility] [address] [facility] [id number][place] [address]- 4438 28 Jan, 2013 [facility] [address] [facility] [id number], [place] [address]- 1699 Jan, [facility] [address] [facility] [id number], [place] [address]- 7640 Dec, [facility] [address] [facility] [id number][place] [address]- 3664 Jun, [facility] [address] [facility] [id number][place] [address]- 5207 13 Jan, 2012 [facility] [address] [facility] [id number], [place] [address]- 8105 Nov, [facility] [address] [id number] [address]- 9397 Nov, [facility] [address], [place] [address]- 2680 16 Oct, 2011 [facility] [address]005[address], [place] [address]- 2816 Oct, [facility] [address], [place] [address]- 5618 Oct, [facility] [address] [id number], [place] [address]- 8211 Oct, [facility] [address], [place] [address]- 9165 Feb, [facility] [address] [id number] 3903 Feb, [facility] [address] [address] 0766 30 Oct, 2009 [facility] [address] [facility] [id number][place] [address]- 1683 March, IMMUNIZATIONS No Known Immunizations SOCIAL HISTORY Never Assessed REASON FOR VISIT [place] [place] VITAL SIGNS MEDICATIONS Unknown Medications RESULTS No Results PROCEDURES No Known procedures INSTRUCTIONS MEDICATIONS ADMINISTERED No Known Medications MEDICAL (GENERAL) HISTORY Type Description Date Medical History Pre-diabetes Surgical History myringotomy with ventilating tube age 6
--- OUTSIDE RECORDS SUMMARY | 2019-03-15 09:06 | XMS REPORT ---
Author Author Migration, Doctor Organization [facility] Address Unknown Phone Unavailable Care Team Providers Care Social Media Senior Associate Name Role Phone Migration, Doctor Unavailable Unavailable PROBLEMS Type Condition ICD9-CM Code [id number] Code Onset Dates Condition Status SNOMED Code Problem Breast tenderness N64.4 Active 10840408 Problem Absence of menses due to use of contraceptive N91.2 Active 03489024 Problem History of nipple discharge Z87.898 Active 071502540 Problem Pre-diabetes R73.09 Active 3340142 Problem Surveillance for control, intrauterine device Z30.431 Active 109524460 Problem GERD (gastroesophageal reflux disease) K21.9 Active 775172828 Problem History of galactorrhea Z87.59 Active 709208728 Problem History of anxiety Z86.59 Active 530017628 Problem History of depression Z86.59 Active 564285336 Problem Left leg pain M79.605 Active 950622797 ALLERGIES No Information ENCOUNTERS Encounter Location Date Diagnosis [facility] [id number] [place] [address] -4759 Oct, Sore throat J02.9 ; Strep pharyngitis J02.0 and BMI 45.0- 49.9, adult Z68.42 [facility] [id number] [place] [address]32 -0451 Aug, Cellulitis of right lower extremity L03.115 and Insect bite , initial encounter W57.XXXA [facility] [address] [place] [address] 16420- 2945 Nov, [facility] [address] [address] 12 Nov, 2017 Surveillance for control, intrauterine device Z30.431 ; Pelvic pain R10.2 and BMI 40.0-44.9, adult Z68.41 [facility] [id number] [place] [address] 71040- 1541 Nov, [facility] [id number] [place] [address] 14632- 6965 Aug, UTI (urinary tract infection) N39.0 [facility] [id number] [address] 09 Jun, 2016 Dental examination Z01.20 [place] [address] [place] [address] 55764- 0290 Nov, Pre-diabetes R73.09 ; Left leg pain M79.605 and GERD ( gastroesophageal reflux disease) K21.9 [place] [id number] [place] [address] 50301- 1157 Nov, Well woman exam Z01.419 ; History of depression Z86.59 and Family history of diabetes mellitus Z83.3 [place] [address] [place] [address] 12304- 5303 Nov, Left leg pain M79.605 [place] [address] [place] [address] 84707- 6282 04 Nov, 2015 Well woman exam Z01.419 ; Family history of diabetes mellitus Z83.3 ; History of depression Z86.59 ; History of anxiety Z86.59 ; Surveillance for control, intrauterine device Z30.431 ; Breast tenderness N64.4 ; History of galactorrhea Z87.59 and Left leg pain M79.605 [place] [address] [place] [address] 87819- 8867 Oct, [place] [address] [place] [address] 77541- 0782 Oct, History of nipple discharge Z87.898 [place] [address] [place] [address] 40668010- 8037 Oct, Surveillance for control, intrauterine device Z30.431 ; History of nipple discharge Z87.898 ; Breast tenderness N64.4 ; Vaginal discharge N89.8 ; Screening for malignant neoplasm of cervix Z12.4 ; Absence of menses due to use of contraceptive N91.2 ; Unprotected sexual intercourse Z72.51 ; Abdominal bloating R14.0 ; Fibrocystic breast, right N60.11 and Fibrocystic breast, left N60.12 [facility] [address] [place] [address] 2269 14 Feb, 2015 [facility] [address] [id number] [address] 0[address] 13 Feb, 2015 [facility] [address] [place] [address] 8529 15 Oct, 2014 [facility] [id number] [place] [address] 597370- 2759 Oct, [facility] [address], [place] [address] 4724 Oct, [facility] [id number] [place] [address] 00105- 3561 Oct, [facility] [address], [place] [address]- 8575 Oct, [facility] [address], [place] [address] 5999 Dec, [facility] [address], [place] [address] 6146 Dec, [facility] [address] [address] 6006 Oct, [facility] [address] [address]- 2542 Oct, [facility] [address] 1076 Oct, [facility] [address] 4536 Oct, [facility] [address], [place] [address] 9373 Aug, [facility] [place] [facility] [address] [id number] [place] [address]- 0549 14 Aug, 2013 [facility] [place] [facility] [address] [id number] [place] [address]- 6760 Aug, [facility] [place] [facility] [address] [id number] [place] [address]- 5077 Aug, [facility] [place] [facility] [address] [id number] [place] [address]- 4407 Aug, [facility] [place] [facility] [address] [id number] [place] [address]- 4698 Aug, [facility] [place] [facility] [address] [id number] [place] [address]- 1106 Aug, [facility] [place] [facility] [address] [id number] [place] [address]- 7987 Jul, [facility] [place] [facility] [address] [id number] [address] 6391 Jul, [facility] [place] [facility] [address] [id number] [place] [address]- 2502 Jul, [facility] [place] [facility] [address] [id number], [place] [address]- 3980 06 Jul, 2013 [facility] [place] [facility] [address] [id number], [place] [address]- 7247 Jun, [facility] [place] [facility] [address] [id number], [place] [address]- 2488 Jun, [facility] [place] [facility] [address] [id number] [place] [address]- 4433 Jun, [facility] [place] [facility] [address] [id number], [place] [address]- 3040 Jun, [facility] [place] [facility] [address] [id number] [place] [address]- 9948 Jun, [facility] [place] [facility] [address] [id number] [place] [address]- 1141 May, [facility] [address] [id number] [place] [address]- 2473 Apr, [facility] [address] [id number] [place] [address]- 3116 Apr, [facility] [address] [id number] [place] [address]- 0828 Apr, [facility] [place] [facility] [address] [id number] [place] [address]- 2795 Apr, [facility] [address] [id number] [place] [address]- 4539 March, [facility] [address] [id number] [place] [address]- 2717 March, [facility] [address] [id number] [place] [address]- 8626 March, [facility] [address] [id number] [place] [address]- 0794 March, [facility] [address] [id number] [place] [address]- 4433 March, [facility] [address] [id number] [place] [address]- 7879 March, [facility] [address] [id number] [place] [address]- 8384 March, [facility] [place] [facility] [address] [id number] [place] [address]- 5680 Feb, [facility] [place] [facility] [address] [id number] [place] [address]- 6389 Feb, [facility] [place] [facility] [address] [id number] [place] [address]- 1178 Feb, [facility] [place] [facility] [address] [id number] [place] [address]- 4710 Jan, [facility] [place] [facility] [address] [facility] [id number], [place] [address]- 9209 28 Jan, 2013 [facility] [address] [facility] [id number], [place] [address]- 5288 Jan, [facility] [address] [facility] [id number], [place] [address]- 3422 Dec, [facility] [address] [facility] [id number], [place] [address]- 4423 Jun, [facility] [address] [facility] [id number], [place] [address]- 2101 13 Jan, 2012 [facility] [address] [facility] [id number], [place] [address]- 0160 Nov, [facility] [address] [id number], [place] [address]- 0880 Nov, [facility] [address], [place] [address]- 4548 16 Oct, 2011 [facility] [address], [place] [address]- 1560 Oct, [facility] [address], [place] [address]- 8100 Oct, [facility] [address] [id number], [place] [address]- 0381 Oct, [facility] [address], [place] [address]- 5366 Feb, [facility] [address] [id number] 2340 Feb, [facility] [address] [address] 3063 30 Oct, 2009 [facility] [address] [facility] [id number], [place] [address] March, IMMUNIZATIONS No Known Immunizations SOCIAL HISTORY Never Assessed REASON FOR VISIT EMR-[facility] PLAN OF CARE VITAL SIGNS MEDICATIONS Unknown Medications RESULTS No Results PROCEDURES No Known procedures INSTRUCTIONS MEDICATIONS ADMINISTERED No Known Medications MEDICAL (GENERAL) HISTORY Type Description Date Medical History Pre-diabetes Surgical History myringotomy with ventilating tube age 6
--- OUTSIDE RECORDS SUMMARY | 2019-03-15 09:07 | XMS REPORT ---
Author Author RAVINDRA DALEY [facility] Address [address] [place] [address] Phone Unavailable Care Team Providers Care Chronometer Assembler Name Role Phone RAVINDRA DALEY Unavailable Unavailable PROBLEMS Type Condition ICD9-CM Code [id number] Code Onset Dates Condition Status SNOMED Code Problem Breast tenderness N64.4 Active 81642385 Problem History of nipple discharge Z87.898 Active 538315778 Problem Absence of menses due to use of contraceptive N91.2 Active 66884381 Problem Surveillance for control, intrauterine device Z30.431 Active 219889445 Problem GERD (gastroesophageal reflux disease) K21.9 Active 104212813 Problem Pre-diabetes R73.09 Active 4778389 Problem History of anxiety Z86.59 Active 740582618 Problem History of galactorrhea Z87.59 Active 444357908 Problem Left leg pain M79.605 Active 301423539 Problem History of depression Z86.59 Active 975017093 ALLERGIES No Known Allergies ENCOUNTERS Encounter Location Date Diagnosis [facility] [id number] [place] [address] 02262 -9955 Aug, Cellulitis of right lower extremity L03.115 and Insect bite , initial encounter W57.XXXA [facility] [id number] [place] [address] 69583- 5971 Nov, [facility] [id number] [place] [address] 73766- 0608 Nov, Surveillance for control, intrauterine device Z30.431 ; Pelvic pain R10.2 and BMI 40.0-44.9, adult Z68.41 [facility] [id number] [place] [address] 30841- 8482 Nov, [facility] [address] [address]- 2309 Aug, UTI (urinary tract infection) N39.0 [facility] [address] [place] [address] [id number] Jun, Dental examination Z01.20 [place] [address] [place] [address] 63178- 3674 Nov, Pre-diabetes R73.09 ; Left leg pain M79.605 and GERD ( gastroesophageal reflux disease) K21.9 [place] [id number] [place] [address] 07091- 0525 Nov, Well woman exam Z01.419 ; History of depression Z86.59 and Family history of diabetes mellitus Z83.3 [place] [id number] [place] [address] 92490- 3914 Nov, Left leg pain M79.605 [place] [id number] [place] [address] 61730- 0715 Nov, Well woman exam Z01.419 ; Family history of diabetes mellitus Z83.3 ; History of depression Z86.59 ; History of anxiety Z86.59 ; Surveillance for control, intrauterine device Z30.431 ; Breast tenderness N64.4 ; History of galactorrhea Z87.59 and Left leg pain M79.605 [place] [address] [place] [address] 93371- 5678 03 Oct, 2015 [place] [id number] [place] [address] 10012- 7498 Oct, History of nipple discharge Z87.898 [place] [id number] [place] [address] 74490- 2434 Oct, Surveillance for control, intrauterine device Z30.431 ; History of nipple discharge Z87.898 ; Breast tenderness N64.4 ; Vaginal discharge N89.8 ; Screening for malignant neoplasm of cervix Z12.4 ; Absence of menses due to use of contraceptive N91.2 ; Unprotected sexual intercourse Z72.51 ; Abdominal bloating R14.0 ; Fibrocystic breast, right N60.11 and Fibrocystic breast, left N60.12 [facility] [address] [id number] [place] [address]- 9348 14 Feb, 2015 [facility] [address] [id number] [place] [address]- 3976 13 Feb, 2015 [facility] [address] [id number] [place] [address]- 9361 15 Oct, 2014 [facility] [address] [id number] [place] [address]- 9897 15 Oct, 2014 [facility] [address] [id number] [place] [address]- 4369 Oct, [facility] [address] [id number] [place] [address]- 0809 Oct, [facility] [address] [facility] [id number] [place] [address]- 9265 Oct, [facility] [address] [id number] [place] [address]- 1957 Dec, [facility] [address] [facility] [id number] [place] [address]- 0037 Dec, [facility] [address] [facility] [id number] [place] [address]- 2489 Oct, [facility] [address] [id number] [place] [address]- 3839 Oct, [facility] [address] [id number] [place] [address]- 2125 Oct, [facility] [address] [id number] [place] [address]- 2837 Oct, [facility] [address] [id number] [place] [address]- 4901 14 Aug, 2013 [facility] [address] [facility] [id number] [place] [address]- 6808 14 Aug, 2013 [facility] [place] [facility] [address] [id number] [place] [address]- 8439 Aug, [facility] [place] [facility] [address] [id number] [place] [address]- 3259 Aug, [facility] [place] [facility] [address] [id number] [place] [address]- 2806 Aug, [facility] [place] [facility] [address] [id number] [place] [address]- 2193 Aug, [facility] [place] [facility] [address] [id number] [place] [address]- 4365 Aug, [facility] [place] [facility] [address] [id number] [place] [address]- 7700 Jul, [facility] [place] [facility] [address] [id number] [place] [address]- 9932 Jul, [facility] [place] [facility] [address] [id number] [place] [address]- 6592 Jul, [facility] [place] [facility] [address] [id number] [place] [address]- 3859 Jul, [facility] [place] [facility] [address] [id number] [place] [address]- 2176 Jun, [facility] [place] [facility] [address] [id number] [place] [address]- 3170 Jun, [facility] [place] [facility] [address] [id number] [place] [address]- 7293 Jun, [facility] [place] [facility] [address] [id number] [place] [address]- 5444 Jun, [facility] [place] [facility] [address] [id number] [place] [address]- 7417 Jun, [facility] [place] [facility] [address] [id number] [place] [address]- 9689 May, [facility] [place] [facility] [address] [id number] [place] [address]- 9452 Apr, [facility] [address] [id number] [place] [address]- 7046 Apr, [facility] [place] [facility] [address] [id number] [place] [address]- 4642 Apr, [facility] [place] [facility] [address] [id number] [place] [address]- 8200 Apr, [facility] [place] [facility] [address] [id number] [place] [address]- 3184 March, [facility] [place] [facility] [address] [id number] [place] [address]- 4858 March, [facility] [place] [facility] [address] [id number] [place] [address]- 9753 March, [facility] [place] [facility] [address] [id number] [place] [address]- 7237 March, [facility] [place] [facility] [address] [id number] [place] [address]- 7678 March, [facility] [place] [facility] [address] [id number] [place] [address]- 9221 March, [facility] [place] [facility] [address] [id number] [place] [address]- 3980 March, [facility] [place] [facility] [address] [id number] [place] [address]- 4848 Feb, [facility] [place] [facility] [address] [id number] [place] [address]- 5341 Feb, [facility] [place] [facility] [address] [id number] [place] [address]- 7699 Feb, [facility] [place] [facility] [address] [id number] [place] [address]- 0373 Jan, [facility] [place] [facility] [address] [id number] [place] [address]- 9399 Jan, [facility] [place] [facility] [address] [id number] [address]- 5586 Jan, [facility] [address] [id number] [address]- 0136 Dec, [facility] [address] [address]- 1996 Jun, [facility] [address] [address]- 5206 Jan, [facility] [address] [address]- 0090 Nov, [facility] [address] [place] [address] 34480- 5426 Nov, [facility] [address] [address]- 0836 Oct, [facility] [address] [address]- 7236 Oct, [facility] [address] [address]- 1981 Oct, [facility] [address] [address]- 4908 Oct, [facility] [address] [address]- 1457 Feb, [facility] [address] [id number] [address]- 1796 Feb, [facility] [address] [id number] [address]- 6859 Oct, [facility] [address] [id number] [address]- 9244 March, IMMUNIZATIONS No Known Immunizations SOCIAL HISTORY Never Assessed REASON FOR VISIT ER Thursday for a bite was prescribed abx but never filled- was gone on Thu- Yesterday redness returned and has rash up to knee JStrasserRN PLAN OF CARE Activity Details Follow Up prn Reason: VITAL SIGNS Height 62 in 2018-08-21 Weight 245.8 lbs 2018-08-21 Temperature 97.8 degrees Fahrenheit 2018-08-21 Heart Rate 86 bpm 2018-08-21 Respiratory Rate 20 2018-08-21 BMI 44.95 kg/m2 2018-08-21 Blood pressure systolic 110 mmHg 2018-08-21 Blood pressure diastolic 80 mmHg 2018-08-21 MEDICATIONS Medication Instructions Dosage Frequency Start Date End Date Duration Status Neurontin 100 MG Orally Once a day as directed 24h Nov, Not- Taking Pyridium 200 mg 1 tablet by Oral route 3 times per day for 3 day(s) for bladder pain Oct, Not-Taking Cipro 500 mg 1 tablet by Oral route every 12 hours for 10 day(s) Oct Not-Taking Ciprofloxacin HCl 500 MG Orally Twice a day 1 tablet 12h Not- Taking Ibuprofen 800 MG Orally 3 times a day 1 tablet 8h Nov, Not- Taking Bactrim DS 800-160 MG Orally Twice a day 1 tablet 12h Aug,Aug 10 day(s) Active Mirena 20 MCG/24HR Active MetFORMIN HCl ER (MOD) 500 MG Orally 2 times a day Take one tablet daily in the morning for one week, then take one tablet twice a day with meals 12h Nov, Not-Taking Omeprazole 20 MG Orally Once a day 1 capsules 24h Nov, Not- Taking RESULTS No Results PROCEDURES No Known procedures INSTRUCTIONS MEDICATIONS ADMINISTERED No Known Medications MEDICAL (GENERAL) HISTORY Type Description Date Medical History Pre-diabetes Surgical History myringotomy with ventilating tube age 6
--- OUTSIDE RECORDS SUMMARY | 2019-03-15 09:07 | XMS REPORT ---
Author Author Migration, Doctor Organization [facility] Address Unknown Phone Unavailable Care Team Providers Care House Coordinator Name Role Phone Migration, Doctor Unavailable Unavailable PROBLEMS Type Condition ICD9-CM Code PPP96-UM Code Onset Dates Condition Status SNOMED Code Problem Breast tenderness N64.4 Active 15497622 Problem Absence of menses due to use of contraceptive N91.2 Active 52851986 Problem History of nipple discharge Z87.898 Active 276818558 Problem Pre-diabetes R73.09 Active 1631522 Problem Surveillance for control, intrauterine device Z30.431 Active 020021401 Problem GERD (gastroesophageal reflux disease) K21.9 Active 955423840 Problem History of galactorrhea Z87.59 Active 219021023 Problem History of anxiety Z86.59 Active 424877256 Problem History of depression Z86.59 Active 424258372 Problem Left leg pain M79.605 Active 677639252 ALLERGIES No Information ENCOUNTERS Encounter Location Date Diagnosis [facility] WALK IN [facility] [id number] [place] [address] 91738 -9484 Oct, Sore throat J02.9 ; Strep pharyngitis J02.0 and BMI 45.0- 49.9, adult Z68.42 [facility] IN [facility] [id number] [place] [address] 77917 -5184 Aug, Cellulitis of right lower extremity L03.115 and Insect bite , initial encounter W57.XXXA [facility] [place] [id number] [place] [address] 34857- 2882 Nov, [facility] [place] [address] [address]79- 0318 Nov, Surveillance for control, intrauterine device Z30.431 ; Pelvic pain R10.2 and BMI 40.0-44.9, adult Z68.41 [facility] [place] [id number] [place] [address] 43566- 4168 Nov, [facility] [place] [id number] [place] [address] 26856- 9243 Aug, UTI (urinary tract infection) N39.0 [facility] [id number] [id number] 09 Jun, 2016 Dental examination Z01.20 [place] [id number] [place] [address] 62701- 8580 Nov, Pre-diabetes R73.09 ; Left leg pain M79.605 and GERD ( gastroesophageal reflux disease) K21.9 [place] [id number] [place] [address] 16382- 5330 Nov, Well woman exam Z01.419 ; History of depression Z86.59 and Family history of diabetes mellitus Z83.3 [place] [address] [place] [address] 08294- 1027 Nov, Left leg pain M79.605 [place] [address] [place] [address] 88444- 0261 04 Nov, 2015 Well woman exam Z01.419 ; Family history of diabetes mellitus Z83.3 ; History of depression Z86.59 ; History of anxiety Z86.59 ; Surveillance for control, intrauterine device Z30.431 ; Breast tenderness N64.4 ; History of galactorrhea Z87.59 and Left leg pain M79.605 [place] [address] [place] [address] 98150- 0837 Oct, [facility] [id number] [place] [address] 87083- 3359 Oct, History of nipple discharge Z87.898 [place] [address] [place] [address] 71619648- 5709 Oct, Surveillance for control, intrauterine device Z30.431 ; History of nipple discharge Z87.898 ; Breast tenderness N64.4 ; Vaginal discharge N89.8 ; Screening for malignant neoplasm of cervix Z12.4 ; Absence of menses due to use of contraceptive N91.2 ; Unprotected sexual intercourse Z72.51 ; Abdominal bloating R14.0 ; Fibrocystic breast, right N60.11 and Fibrocystic breast, left N60.12 [facility] [place] [address] [place] [address]- 7202 14 Feb, 2015 [facility] [place] [id number] [address]- 2196 13 Feb, 2015 [facility] [place] [address] [place] [address]- 3497 15 Oct, 2014 [facility] [place] [id number] [place] [address] 219982- 2522 Oct, [facility] [place] [address] [address]- 2088 Oct, [facility] [place] [id number] [place] [address] 36295- 3654 Oct, [facility] [place] [address] [address]- 4742 Oct, [facility] [place] [address] [address]- 3460 Dec, [facility] [place] [address] [address]- 4616 Dec, [facility] [place] [address] [address]- 2290 Oct, [facility] [place] [address] [address]- 2547 Oct, [facility] [place] [address] 5816 Oct, [facility] [place] [address] 0206 Oct, [facility] [place] [address] [address]- 2417 Aug, [facility] [place] [facility] [address] [id number] [place] [address]- 8012 14 Aug, 2013 [facility] [place] [facility] [address] [id number] [place] [address]- 1665 Aug, [facility] [place] [facility] [address] [id number] [place] [address]- 3035 Aug, [facility] [place] [facility] [address] [id number] [place] [address]- 2048 Aug, [facility] [place] [facility] [address] [id number] [place] [address]- 5168 Aug, [facility] [place] [facility] [address] [id number] [place] [address]- 4585 Aug, [facility] [place] [facility] [address] [id number] [place] [address]- 7123 Jul, [facility] [place] [facility] [address] [id number] [address]- 0542 Jul, [facility] [place] [facility] [address] [id number] [place] [address]- 6461 Jul, [facility] [place] [facility] [address] [id number] [address]- 0917 06 Jul, 2013 [facility] [place] [facility] [address] [id number] [address]- 0722 Jun, [facility] [place] [facility] [address] [id number] [address]- 7271 Jun, [facility] [place] [facility] [address] [id number] [place] [address]- 7286 Jun, [facility] [place] [facility] [address] [id number] [address]- 0223 Jun, [facility] [place] [facility] [address] [id number] [place] [address]- 9762 Jun, [facility] [place] [facility] [address] [id number] [place] [address]- 1791 May, [facility] [address] [id number] [place] [address]- 1561 Apr, [facility] [address] [id number] [place] [address]- 5147 Apr, [facility] [address] [id number] [place] [address]- 7723 Apr, [facility] [place] [facility] [address] [id number] [place] [address]- 9299 Apr, [facility] [address] [id number] [place] [address]- 3110 March, [facility] [address] [id number] [place] [address]- 9449 March, [facility] [address] [id number] [place] [address]- 3703 March, [facility] [address] [id number] [place] [address]- 4874 March, [facility] [address] [id number] [place] [address]- 6736 March, [facility] [address] [id number] [place] [address]- 4176 March, [facility] [address] [id number] [place] [address]- 6105 March, [facility] [place] [facility] [address] [id number] [place] [address]- 8436 Feb, [facility] [place] [facility] [address] [id number] [place] [address]- 6573 Feb, [facility] [place] [facility] [address] [id number] [place] [address]- 7760 Feb, [facility] [place] [facility] [address] [id number] [place] [address]- 1141 Jan, [facility] [place] [facility] [address] [facility] [id number] [address]- 7299 28 Jan, 2013 [facility] [place] [address] [facility] [id number], [place] [address]- 2199 Jan, [facility] [place] [address] [facility] [id number], [place] [address]- 6589 Dec, [facility] [place] [address] [facility] [id number], [place] [address]- 6522 Jun, [facility] [place] [address] [facility] [id number], [place] [address]- 2272 13 Jan, 2012 [facility] [place] [address] [facility] [id number] [address]- 0770 Nov, [facility] [place] [address] [id number] [address]- 9499 Nov, [facility] [place] [address], [place] [address]- 3771 16 Oct, 2011 [facility] [place] [address] [address]- 7791 Oct, [facility] [place] [address], [place] [address]- 7026 Oct, [facility] [place] [id number] [address]- 9850 Oct, [facility] [place] [address] [address]- 5320 Feb, [facility] [place] [id number] 6082 Feb, [facility] [place] [address] [address] 3510 30 Oct, 2009 [facility] [place] [address] [facility] [id number], [place] [address]- 1047 March, IMMUNIZATIONS No Known Immunizations SOCIAL HISTORY Never Assessed REASON FOR VISIT EMR-[facility] PLAN OF CARE VITAL SIGNS MEDICATIONS Unknown Medications RESULTS No Results PROCEDURES No Known procedures INSTRUCTIONS MEDICATIONS ADMINISTERED No Known Medications MEDICAL (GENERAL) HISTORY Type Description Date Medical History Pre-diabetes Surgical History myringotomy with ventilating tube age 6
--- OUTSIDE RECORDS SUMMARY | 2019-03-15 09:07 | XMS REPORT ---
Author Author KARAN JULIEN [facility] Address [address] [place] [address] Care Team Providers Care Trade Facilitator Name Role Phone KARAN JULIEN Unavailable PROBLEMS Type Condition ICD9-CM Code XYP19-ZE Code Onset Dates Condition Status SNOMED Code Problem Breast tenderness N64.4 Active 77018904 Problem History of nipple discharge Z87.898 Active 167432440 Problem Absence of menses due to use of contraceptive N91.2 Active 64364414 Problem Surveillance for control, intrauterine device Z30.431 Active 524652818 Problem GERD (gastroesophageal reflux disease) K21.9 Active 212107271 Problem Pre-diabetes R73.09 Active 3396472 Problem History of anxiety Z86.59 Active 477022278 Problem History of galactorrhea Z87.59 Active 596827788 Problem Left leg pain M79.605 Active 055568080 Problem History of depression Z86.59 Active 829636886 ALLERGIES No Known Allergies ENCOUNTERS Encounter Location Date Diagnosis [facility] IN [facility] [id number] [place] [address] 61136 -4903 Oct, Sore throat J02.9 ; Strep pharyngitis J02.0 and BMI 45.0- 49.9, adult Z68.42 [facility] IN [facility] [id number] [place] [address] 42528 -7753 Aug, Cellulitis of right lower extremity L03.115 and Insect bite , initial encounter W57.XXXA [facility] [address] [address]- 2423 Nov, [facility] [id number] [place] [address] 63619- 8926 Nov, Surveillance for control, intrauterine device Z30.431 ; Pelvic pain R10.2 and BMI 40.0-44.9, adult Z68.41 [place] [facility] [id number] [place] [address] 75194- 3462 Nov, [place] [id number] [place] [address] 82273- 4499 Aug, UTI (urinary tract infection) N39.0 [facility] [id number] [place] [address] [id number] Jun, Dental examination Z01.20 [place] [id number] [place] [address] 26211- 7200 Nov, Pre-diabetes R73.09 ; Left leg pain M79.605 and GERD ( gastroesophageal reflux disease) K21.9 [place] [id number] [place] [address] 52213- 0948 Nov, Well woman exam Z01.419 ; History of depression Z86.59 and Family history of diabetes mellitus Z83.3 [place] [id number] [place] [address] 88948- 2363 Nov, Left leg pain M79.605 [place] [address] 37084- 0080 04 Nov, 2015 Well woman exam Z01.419 ; Family history of diabetes mellitus Z83.3 ; History of depression Z86.59 ; History of anxiety Z86.59 ; Surveillance for control, intrauterine device Z30.431 ; Breast tenderness N64.4 ; History of galactorrhea Z87.59 and Left leg pain M79.605 [place] [id number] [place] [address] 34314- 2262 Oct, [place] [address] 34538- 2266 Oct, History of nipple discharge Z87.898 [place] [id number] [place] [address] 90726- 7399 Oct, Surveillance for control, intrauterine device Z30.431 ; History of nipple discharge Z87.898 ; Breast tenderness N64.4 ; Vaginal discharge N89.8 ; Screening for malignant neoplasm of cervix Z12.4 ; Absence of menses due to use of contraceptive N91.2 ; Unprotected sexual intercourse Z72.51 ; Abdominal bloating R14.0 ; Fibrocystic breast, right N60.11 and Fibrocystic breast, left N60.12 [facility] [id number] [place] [address] 380676- 1095 14 Feb, 2015 [facility] [id number] [place] [address] 97697- 0705 13 Feb, 2015 [facility] [id number] [place] [address] 278807- 1625 Oct, [facility] [id number] [place] [address] 70138- 1090 Oct, [facility] [id number] [place] [address] 62138- 9295 Oct, [facility] [id number] [place] [address] 34385- 9111 Oct, [facility] [id number] [place] [address] 06947- 0342 Oct, [facility] [address] [place] [address] 47736- 8983 Dec, [facility] [id number] [place] [address] 33153- 3458 Dec, [facility] [address] [place] [address] 68939- 2756 Oct, [facility] [id number] [place] [address] 421326- 2438 Oct, [facility] [id number] [place] [address] 479945- 4116 Oct, [facility] [id number] [place] [address] 281960- 7335 Oct, [facility] [place] [facility] [address] [id number] [place] [address]- 0996 Aug, [facility] [place] [facility] [address] [id number] [place] [address]- 0791 Aug, [facility] [place] [facility] [address] [id number] [place] [address]- 3033 Aug, [facility] [place] [facility] [address] [id number] [place] [address]- 7081 Aug, [facility] [place] [facility] [address] [id number] [place] [address]- 2271 Aug, [facility] [place] [facility] [address] [id number] [place] [address]- 8892 Aug, [facility] [place] [facility] [address] [id number] [place] [address]- 9062 Aug, [facility] [place] [facility] [address] [id number] [place] [address]- 8263 27 Jul, 2013 [facility] [place] [facility] [address] [id number] [place] [address]- 7585 25 Jul, 2013 [facility] [place] [facility] [address] [id number] [place] [address]- 3594 Jul, [facility] [place] [facility] [address] [id number] [place] [address]- 4896 Jul, [facility] [place] [facility] [address] [id number] [address]- 1346 Jun, [facility] [place] [facility] [address] [id number] [place] [address]- 0474 15 Jun, 2013 [facility] [place] [facility] [address] [id number] [place] [address]- 5553 Jun, [facility] [place] [facility] [address] [id number] [place] [address]- 4342 Jun, [facility] [place] [facility] [address] [id number] [place] [address]- 2507 Jun, [facility] [address] [id number] [place] [address]- 5441 May, [facility] [address] [id number] [place] 7705 Apr, [facility] [address] [id number] [place] [address]- 2795 Apr, [facility] [address] [id number] [place] [address]- 1447 Apr, [facility] [address] [id number] [place] [address]- 9300 Apr, [facility] [address] [id number] [place] [address]- 0615 March, [facility] [address] [id number] [place] [address]- 8792 March, [facility] [address] [id number] [place] [address]- 1303 March, [facility] [address] [id number] [place] [address]- 7385 March, [facility] [address] [id number] [place] [address]- 2118 March, [facility] [address] [id number] [place] [address]- 5634 March, [facility] [place] [facility] [address] [id number] [place] [address]- 5211 March, [facility] [address] [id number] [place] [address]- 9682 Feb, [facility] [place] [facility] [address] [id number] [place] [address]- 9360 Feb, [facility] [address] [id number] [place] [address]- 8808 Feb, [facility] [address] [id number] [place] [address]- 5541 29 Jan, 2013 [facility] [address] [id number] [place] [address]- 2940 28 Jan, 2013 [facility] [place] [facility] [address] [id number] [place] [address]- 6793 27 Jan, 2013 [facility] [address] [id number] [place] [address]- 2475 Dec, [facility] [address] [id number] [place] [address]- 0894 Jun, [facility] [address] [id number] [place] [address]- 6229 13 Jan, 2012 [facility] [address] [id number] [place] [address]- 3495 Nov, [facility] [address] [id number] [place] [address]- 3034 Nov, [facility] [address] [id number] [place] [address]- 4104 16 Oct, 2011 [facility] [address] [id number] [place] [address]- 5913 Oct, [facility] [address] [id number] [place] [address]- 8364 Oct, [facility] [address] [id number] [place] [address]- 1437 07 Oct, 2011 [facility] [address] [id number] [place] [address]- 7912 Feb, [facility] [place] [facility] [address] [id number] [place] [address]- 1371 19 Feb, 2010 [facility] [place] [facility] [address] [id number] [place] [address]- 5485 30 Oct, 2009 [facility] [place] [facility] [address] [id number] [place] [address]- 6606 March, IMMUNIZATIONS No Known Immunizations SOCIAL HISTORY Never Assessed REASON FOR VISIT Sore throat, headache, lump on right side of neck and right ear pain; pt's work is concerned that she may have strep throat; symptoms x2 days - JAMES Tobar, LMP : pt spotted last month, but she has a Mirena (last full period: 2013) PLAN OF CARE Activity Details Follow Up if not improving with PCP or reg follow up Reason: VITAL SIGNS Height 62 in 2018-11-04 Weight 255.6 lbs 2018-11-04 Temperature 98.3 degrees Fahrenheit 2018-11-04 Heart Rate 68 bpm 2018-11-04 Respiratory Rate 18 2018-11-04 BMI 46.74 kg/m2 2018-11-04 Blood pressure systolic 98 mmHg 2018-11-04 Blood pressure diastolic 76 mmHg 2018-11-04 MEDICATIONS Medication Instructions Dosage Frequency Start Date End Date Duration Status Amoxicillin 500 mg Orally every 8 hrs 1 tablet 8h Oct, 10 day(s ) Active Ibuprofen 800 MG Orally 3 times a day 1 tablet 8h Nov, Not- Taking Pyridium 200 mg 1 tablet by Oral route 3 times per day for 3 day(s) for bladder pain Oct, Not-Taking Fluconazole 150 MG Orally one time may reapeat in 3 days if needed 1 tablet Oct, 2 doses Active Cipro 500 mg 1 tablet by Oral route every 12 hours for 10 day(s) Oct Not-Taking Mirena 20 MCG/24HR Active Omeprazole 20 MG Orally Once a day 1 capsules 24h Nov, Not- Taking MetFORMIN HCl ER (MOD) 500 MG Orally 2 times a day Take one tablet daily in the morning for one week, then take one tablet twice a day with meals 12h Nov, Not-Taking Ibuprofen 200 MG Orally Three times a day 1 tablet with food or milk as needed 8h Active Neurontin 100 MG Orally Once a day as directed 24h Nov, Not- Taking Ciprofloxacin HCl 500 MG Orally Twice a day 1 tablet 12h Not- Taking RESULTS Name Result Date Reference Range STREP A (IN HOUSE) 2018-11-04 STREP A positive Control + Lot # [id number] Exp date 04/15/2019 PROCEDURES Procedure Date Ordered Result Body Site STREP A ASSAY W/OPTIC Nov 04, 2018 INSTRUCTIONS MEDICATIONS ADMINISTERED No Known Medications MEDICAL (GENERAL) HISTORY Type Description Date Medical History Pre-diabetes Surgical History myringotomy with ventilating tube age 6
--- OUTSIDE RECORDS SUMMARY | 2019-03-15 09:07 | XMS REPORT ---
Author Author Migration, Doctor Organization [facility] Address Unknown Phone Unavailable Care Team Providers Care Shake Out Worker Name Role Phone Migration, Doctor Unavailable Unavailable PROBLEMS Type Condition ICD9-CM Code PUL96-CI Code Onset Dates Condition Status SNOMED Code Problem Breast tenderness N64.4 Active 03888658 Problem Absence of menses due to use of contraceptive N91.2 Active 31936541 Problem History of nipple discharge Z87.898 Active 964579358 Problem Pre-diabetes R73.09 Active 8074164 Problem Surveillance for control, intrauterine device Z30.431 Active 988760838 Problem GERD (gastroesophageal reflux disease) K21.9 Active 658900072 Problem History of galactorrhea Z87.59 Active 386099239 Problem History of anxiety Z86.59 Active 067437754 Problem History of depression Z86.59 Active 074281938 Problem Left leg pain M79.605 Active [id number] ALLERGIES No Information ENCOUNTERS Encounter Location Date Diagnosis [facility] [id number] [place] [address] Oct, Sore throat J02.9 ; Strep pharyngitis J02.0 and BMI 45.0- 49.9, adult Z68.42 [facility] [id number] [place] [address] Aug, Cellulitis of right lower extremity L03.115 and Insect bite , initial encounter W57.XXXA [facility] [id number] [place] [address]8926- [address]366 Nov, [facility] [address] [address] Nov, Surveillance for control, intrauterine device Z30.431 ; Pelvic pain R10.2 and BMI 40.0-44.9, adult Z68.41 [facility] [id number] [place] [address]- 7052 Nov, [facility] [id number] [place] [address]6701- 2478 Aug, UTI (urinary tract infection) N39.0 [facility] [id number] [id number] 09 Jun, 2016 Dental examination Z01.20 [place] [id number] [place] [address]25[address] 8626 Nov, Pre-diabetes R73.09 ; Left leg pain M79.605 and GERD ( gastroesophageal reflux disease) K21.9 [place] [id number] [place] [address]99- [address] Nov, Well woman exam Z01.419 ; History of depression Z86.59 and Family history of diabetes mellitus Z83.3 [place] [id number] [place] [address]757- [address]17 Nov, Left leg pain M79.605 [place] [id number] [place] [address]273- 265[address] 04 Nov, 2015 Well woman exam Z01.419 ; Family history of diabetes mellitus Z83.3 ; History of depression Z86.59 ; History of anxiety Z86.59 ; Surveillance for control, intrauterine device Z30.431 ; Breast tenderness N64.4 ; History of galactorrhea Z87.59 and Left leg pain M79.605 [place] [address] [place] [address]17- [address] Oct, [place] [address] [place] [address]82- 6230 Oct, History of nipple discharge Z87.898 [place] [address] [place] [address] [id number]- 9399 Oct, Surveillance for control, intrauterine device Z30.431 ; History of nipple discharge Z87.898 ; Breast tenderness N64.4 ; Vaginal discharge N89.8 ; Screening for malignant neoplasm of cervix Z12.4 ; Absence of menses due to use of contraceptive N91.2 ; Unprotected sexual intercourse Z72.51 ; Abdominal bloating R14.0 ; Fibrocystic breast, right N60.11 and Fibrocystic breast, left N60.12 [facility] [id number] [address] 14 Feb, 2015 [facility] [address] [id number] [address] 13 Feb, 2015 [facility] [address] [place] [address] 15 Oct, 2014 [facility] [id number] [place] [address] 113877- 1307 Oct, [facility] [address] [address] Oct, [facility] [id number] [place] [address]25- 3708 Oct, [facility] [address] [address] Oct, [facility] [address] [address] Dec, [facility] [address] [address] Dec, [facility] [address] [address] Oct, [facility] [address] [address] Oct, [facility] [address] Oct, [facility] [address] [address] Oct, [facility] [address] [address] Aug, [facility] [place] [facility] [address] [id number] [place] [address] 14 Aug, 2013 [facility] [place] [facility] [address] [id number] [place] [address]- 1349 Aug, [facility] [place] [facility] [address] [id number] [place] [address] 2506 Aug, [facility] [place] [facility] [address] [id number] [place] [address] 7080 Aug, [facility] [place] [facility] [address] [id number] [place] [address]- 130[address] Aug, [facility] [place] [facility] [address] [id number] [place] [address]- 1406 Aug, [facility] [place] [facility] [address] [id number] [place] [address] Jul, [facility] [place] [facility] [address] [id number], [place] [address] Jul, [facility] [place] [facility] [address] [id number] [place] [address]- 9483 Jul, [facility] [place] [facility] [address] [id number], [place] [address] 06 Jul, 2013 [facility] [place] [facility] [address] [id number], [place] [address] 4[address] Jun, [facility] [place] [facility] [address] [id number], [place] [address] 9[address] Jun, [facility] [place] [facility] [address] [id number] [place] [address]- 3323 Jun, [facility] [place] [facility] [address] [id number], [place] [address]- 53[address] Jun, [facility] [place] [facility] [address] [id number] [place] [address]- 6175 Jun, [facility] [place] [facility] [address] [id number] [place] [address]- 9249 May, [facility] [address] [id number] [place] [address]- 8302 Apr, [facility] [address] [id number] [place] [address]- 1269 Apr, [facility] [address] [id number] [place] [address]- 3253 Apr, [facility] [place] [facility] [address] [id number] [place] [address]- 2709 Apr, [facility] [address] [id number] [place] [address]- 8159 March, [facility] [address] [id number] [place] [address]- 7094 March, [facility] [address] [id number] [place] [address]- 4895 March, [facility] [address] [id number] [place] [address]- 7777 March, [facility] [address] [id number] [place] [address]- 0327 March, [facility] [address] [id number] [place] [address]- 46[address] March, [facility] [address] [id number] [place] [address]- 3749 March, [facility] [place] [facility] [address] [id number] [place] [address]- 6068 Feb, [facility] [place] [facility] [address] [id number] [place] [address]- 7842 Feb, [facility] [place] [facility] [address] [id number] [place] [address]- 6410 Feb, [facility] [place] [facility] [address] [id number] [place] [address]- 9041 Jan, [facility] [place] [facility] [address] [facility] [id number], [place] [address] 28 Jan, 2013 [facility] [address] [facility] [id number], [place] [address]- 4626 Jan, [facility] [address] [facility] [id number], [place] [address]- 8152 Dec, [facility] [address] [facility] [id number], [place] [address]- [address] Jun, [facility] [address] [facility] [id number], [place] [address]- [address] 13 Jan, 2012 [facility] [address] [facility] [id number], [place] [address]- 4827 Nov, [facility] [id number] [address]99 Nov, [facility] [address] [place] [address] 16 Oct, 2011 [facility] [address] [place] [address]- 4[address] Oct, [facility] [address] [place] [address]- 1458 Oct, [facility] [id number] [address]- [address]237 Oct, [facility] [address] [address]- 7169 Feb, [facility] [id number] [address] Feb, [facility] [address] [address] 30 Oct, 2009 [facility] [address] [facility] [id number], [place] [address]- [address] March, IMMUNIZATIONS No Known Immunizations SOCIAL HISTORY Never Assessed REASON FOR VISIT [place] [place] VITAL SIGNS MEDICATIONS Unknown Medications RESULTS No Results PROCEDURES No Known procedures INSTRUCTIONS MEDICATIONS ADMINISTERED No Known Medications MEDICAL (GENERAL) HISTORY Type Description Date Medical History Pre-diabetes Surgical History myringotomy with ventilating tube age 6
--- OUTSIDE RECORDS SUMMARY | 2019-03-15 09:11 | XMS REPORT | Continuity of Care Document ---
Author Organization Unknown Address Unknown Allergies Active Description Code Type Severity Reaction Onset Reported/Identified Relationship to Patient Clinical Status Yes No Known Drug Allergies [id number] Drug Allergy Unknown N/A 10/09/2008 Medications There [...] GALDAMEZ DO V22.1 PC OTHER NORMAL 06/06/2008 ELANA GALDAMEZ DO 616.10 VAGINITIS AND VULVOVAGINITIS UNSPECIFIED 06/06/2008 ELANA GALDAMEZ DO V22.1 PC OTHER NORMAL 06/06/2008 ELANA GALDAMEZ DO K 616.10 VAGINITIS AND VULVOVAGINITIS UNSPECIFIED 06/06/2008 ELANA GALDAMEZ DO K V22.1 PC OTHER NORMAL 06/06/2008 ELANA GALDAMEZ DO K 616.10 VAGINITIS AND VULVOVAGINITIS UNSPECIFIED 06/06/2008 ELANA GALDAMEZ DO K V22.1 PC OTHER NORMAL 06/06/2008 GENET UTILITY TECHNICIAN, SAFIA A 616.10 VAGINITIS AND VULVOVAGINITIS UNSPECIFIED 06/06/2008 GENET UTILITY TECHNICIAN, SAFIA A V22.1 PC OTHER NORMAL 06/06/2008 GENET UTILITY TECHNICIAN SAFIA A 616.10 VAGINITIS AND VULVOVAGINITIS UNSPECIFIED 06/06/2008 GENET UTILITY TECHNICIAN, SAFIA A V22.1 PC OTHER NORMAL 06/06/2008 GENET UTILITY TECHNICIAN, SAFIA A 616.10 VAGINITIS AND VULVOVAGINITIS UNSPECIFIED 06/06/2008 GENET UTILITY TECHNICIAN, SAFIA A V22.1 PC OTHER NORMAL 06/06/2008 [...] V28.8 SCREEN GLUCOSE TOLERANCE/TETRA SCREEN 07/07/2008 GENET UTILITY TECHNICIAN, SAFIA A V28.8 SCREEN GLUCOSE TOLERANCE/TETRA SCREEN 07/07/2008 GENET UTILITY TECHNICIAN, SAFIA A V28.8 SCREEN GLUCOSE TOLERANCE/TETRA SCREEN 07/07/2008 GENET UTILITY TECHNICIAN, SAFIA A V28.8 SCREEN GLUCOSE TOLERANCE/TETRA SCREEN 07/07/2008 SARAI UTILITY TECHNICIAN, NNEKA R V28.8 SCREEN GLUCOSE TOLERANCE/TETRA SCREEN 07/07/2008 SARAI UTILITY TECHNICIAN, NNEKA R V28.8 SCREEN GLUCOSE TOLERANCE/TETRA SCREEN [...] K V25.40 CONTRACEPTIVE SURVEILLANCE UNSPECIFIED 11/22/2008 GALDAMEZ DO ELANA K V25.49 SURVEILLANCE OF OTHER CONTRACEPTIVE METHOD 11/22/2008 GALDAMEZ DO, ELANA K V24.2 F/U, ROUTINE 11/22/2008 GALDAMEZ DO, ELANA K V25.40 CONTRACEPTIVE SURVEILLANCE UNSPECIFIED 11/22/2008 GALDAMEZ DO ELANA K V25.49 SURVEILLANCE OF OTHER CONTRACEPTIVE METHOD 11/22/2008 GALDAMEZ DO ELANA K V24.2 F/U, ROUTINE 11/22/2008 GALDAMEZ DO ELANA K V25.40 CONTRACEPTIVE SURVEILLANCE UNSPECIFIED 11/22/2008 GALDAMEZ DO ELANA K V25.49 SURVEILLANCE OF OTHER CONTRACEPTIVE METHOD 11/22/2008 GALDAMEZ DO ELANA K V24.2 F/U, ROUTINE 11/22/2008 GALDAMEZ DO ELANA K V25.40 CONTRACEPTIVE SURVEILLANCE UNSPECIFIED 11/22/2008 GALDAMEZ DO ELANA K V25.49 SURVEILLANCE OF OTHER CONTRACEPTIVE METHOD 11/22/2008 GENET UTILITY TECHNICIAN, SAFIA A V24.2 F/U, ROUTINE 11/22/2008 GENET UTILITY TECHNICIAN, SAFIA A V25.40 CONTRACEPTIVE SURVEILLANCE UNSPECIFIED 11/22/2008 GENET UTILITY TECHNICIAN, SAFIA A V25.49 SURVEILLANCE OF OTHER CONTRACEPTIVE METHOD 11/22/2008 GENET UTILITY TECHNICIAN, SAFIA A V24.2 F/U, ROUTINE 11/22/2008 GENET UTILITY TECHNICIAN, SAFIA A V25.40 CONTRACEPTIVE SURVEILLANCE UNSPECIFIED 11/22/2008 GENET UTILITY TECHNICIAN, SAFIA A V25.49 SURVEILLANCE OF OTHER CONTRACEPTIVE METHOD 11/22/2008 GENET UTILITY TECHNICIAN, SAFIA A V24.2 F/U, ROUTINE 11/22/2008 GENET UTILITY TECHNICIAN, SAFIA A V25.40 CONTRACEPTIVE SURVEILLANCE UNSPECIFIED 11/22/2008 SFAIA DE LEÓN APRN V25.49 SURVEILLANCE OF OTHER CONTRACEPTIVE METHOD 11/22/2008 [...] ELANA K 782.0 NUMBNESS (HYPESTHESIA) 03/26/2009 GENET UTILITY TECHNICIAN, SAFIA A 111.0 DERMATOMYCOSIS TINEA VERSICOLOR 03/26/2009 GENET UTILITY TECHNICIAN, SAFIA A 278.00 OBESITY 03/26/2009 GENET UTILITY TECHNICIAN, SAFIA A 782.0 NUMBNESS (HYPESTHESIA) 03/26/2009 [facility] UTILITY TECHNICIAN, SAFIA A 111.0 DERMATOMYCOSIS TINEA VERSICOLOR 03/26/2009 GENET UTILITY TECHNICIAN, SAFIA A 278.00 OBESITY 03/26/2009 GENET UTILITY TECHNICIAN, SAFIA A 782.0 NUMBNESS (HYPESTHESIA) 03/26/2009 GENET UTILITY TECHNICIAN, SAFIA A 111.0 DERMATOMYCOSIS TINEA VERSICOLOR 03/26/2009 GENET UTILITY TECHNICIAN, SAFIA A 278.00 OBESITY 03/26/2009 GENET UTILITY TECHNICIAN, SAFIA A 782.0 NUMBNESS (HYPESTHESIA) 03/26/2009 LYNDON MOON APRNINA R 111.0 DERMATOMYCOSIS TINEA VERSICOLOR 03/26/2009 LYNDON MOON APRNINA R 278.00 OBESITY 03/26/2009 LYNDON MOON APRNINA R 782.0 NUMBNESS (HYPESTHESIA) 03/26/2009 NNEKA MOON APRN R 111.0 DERMATOMYCOSIS TINEA VERSICOLOR 03/26/2009 NNEKA MOON APRN R 278.00 OBESITY 03/26/2009 NNEKA MOON APRN R 782.0 NUMBNESS (HYPESTHESIA) 04/23/2009 790.29 Oral [...] 2-Hour Value Between 140 - 200 04/23/2009 SAFIA DE LEÓN APRN A 790.29 Oral Glucose Tolerance Test 2-Hour Value Between 140 - 200 04/23/2009 GENET STUBBS, SAFIA A 790.29 ORAL GLUCOSE TOLERANCE TEST 2-HOUR VALUE BETWEEN 140 - 200 04/23/2009 FABIOLA DE LEÓN APRNIDI A 790.29 ORAL GLUCOSE TOLERANCE TEST 2-HOUR VALUE BETWEEN 140 - 200 04/23/2009 NNEKA MOON APRN R 790.29 ORAL GLUCOSE TOLERANCE TEST 2-HOUR VALUE BETWEEN 140 - 200 04/23/2009 NNEKA MOON APRN R 790.29 ORAL GLUCOSE TOLERANCE TEST 2-HOUR [...] ACUTE NONSUPPURATIVE OTITIS MEDIA UNSPECIFIED 05/07/2009 GALDAMEZ DO, ELANA K 381.00 ACUTE NONSUPPURATIVE OTITIS MEDIA UNSPECIFIED 05/07/2009 GENET UTILITY TECHNICIAN, SAFIA A 381.00 ACUTE NONSUPPURATIVE OTITIS MEDIA UNSPECIFIED 05/07/2009 GENET UTILITY TECHNICIAN, SAFIA A 381.00 ACUTE NONSUPPURATIVE OTITIS MEDIA UNSPECIFIED 05/07/2009 GENET UTILITY TECHNICIAN, SAFIA A 381.00 ACUTE NONSUPPURATIVE OTITIS MEDIA UNSPECIFIED 05/07/2009 LYNDON MOON APRNINA R 381.00 ACUTE NONSUPPURATIVE OTITIS MEDIA UNSPECIFIED 05/07/2009 SARAI STUBBS NNEKA R 381.00 ACUTE NONSUPPURATIVE OTITIS MEDIA UNSPECIFIED 02/22/2010 V69.2 HIGH-RISK SEXUAL BEHAVIOR 02/22/2010 V72.31 POWER AND RECOVERY SHIFT ENGINEER EXAM, ROUTINE 02/22/2010 V69.2 HIGH-RISK SEXUAL BEHAVIOR 02/22/2010 V72.31 POWER AND RECOVERY SHIFT ENGINEER EXAM, ROUTINE 02/22/2010 V69.2 HIGH-RISK SEXUAL BEHAVIOR 02/22/2010 V72.31 POWER AND RECOVERY SHIFT ENGINEER EXAM, ROUTINE 02/22/2010 V69.2 HIGH-RISK SEXUAL BEHAVIOR 02/22/2010 V72.31 POWER AND RECOVERY SHIFT ENGINEER EXAM, ROUTINE 02/22/2010 V69.2 HIGH-RISK SEXUAL BEHAVIOR 02/22/2010 V72.31 POWER AND RECOVERY SHIFT ENGINEER EXAM, ROUTINE 02/22/2010 V69.2 HIGH-RISK SEXUAL BEHAVIOR 02/22/2010 V72.31 POWER AND RECOVERY SHIFT ENGINEER EXAM, ROUTINE 02/22/2010 V69.2 HIGH-RISK SEXUAL BEHAVIOR 02/22/2010 V72.31 POWER AND RECOVERY SHIFT ENGINEER EXAM, ROUTINE 02/22/2010 V69.2 HIGH-RISK SEXUAL BEHAVIOR 02/22/2010 V72.31 POWER AND RECOVERY SHIFT ENGINEER EXAM, ROUTINE 02/22/2010 V69.2 HIGH-RISK SEXUAL BEHAVIOR 02/22/2010 V72.31 POWER AND RECOVERY SHIFT ENGINEER EXAM, ROUTINE 02/22/2010 GALDAMEZ DO, ELANA K V69.2 HIGH-RISK SEXUAL BEHAVIOR 02/22/2010 GALDAMEZ DO, ELANA K V72.31 POWER AND RECOVERY SHIFT ENGINEER EXAM, ROUTINE 02/22/2010 GALDAMEZ DO, ELANA K V69.2 HIGH-RISK SEXUAL BEHAVIOR 02/22/2010 GALDAMEZ DO, ELANA K V72.31 POWER AND RECOVERY SHIFT ENGINEER EXAM, ROUTINE 02/22/2010 GALDAMEZ DO, ELANA K V69.2 HIGH-RISK SEXUAL BEHAVIOR 02/22/2010 GALDAMEZ DO, ELANA K V72.31 POWER AND RECOVERY SHIFT ENGINEER EXAM, ROUTINE 02/22/2010 GALDAMEZ DO, ELANA K V69.2 HIGH-RISK SEXUAL BEHAVIOR 02/22/2010 GALDAMEZ DO, ELANA K V72.31 POWER AND RECOVERY SHIFT ENGINEER EXAM, ROUTINE 02/22/2010 GENET UTILITY TECHNICIAN, SAFIA A V69.2 HIGH-RISK SEXUAL BEHAVIOR 02/22/2010 GENET UTILITY TECHNICIAN, SAFIA A V72.31 POWER AND RECOVERY SHIFT ENGINEER EXAM, ROUTINE 02/22/2010 GENET UTILITY TECHNICIAN, SAFIA A V69.2 HIGH-RISK SEXUAL BEHAVIOR 02/22/2010 GENET UTILITY TECHNICIAN, SAFIA A V72.31 POWER AND RECOVERY SHIFT ENGINEER EXAM, ROUTINE 02/22/2010 GENET UTILITY TECHNICIAN, SAFIA A V69.2 HIGH-RISK SEXUAL BEHAVIOR 02/22/2010 GENET UTILITY TECHNICIAN, SAFIA A V72.31 POWER AND RECOVERY SHIFT ENGINEER EXAM, ROUTINE 02/22/2010 SARAI UTILITY TECHNICIAN, NNEKA R V69.2 HIGH-RISK SEXUAL BEHAVIOR 02/22/2010 SARAI UTILITY TECHNICIAN, NNEKA R V72.31 POWER AND RECOVERY SHIFT ENGINEER EXAM, ROUTINE 02/22/2010 SARAI UTILITY TECHNICIAN, NNEKA R V69.2 HIGH-RISK SEXUAL BEHAVIOR 02/22/2010 SARAI UTILITY TECHNICIAN, NNEKA R V72.31 POWER AND RECOVERY SHIFT ENGINEER EXAM, ROUTINE 03/04/2010 727.49 OTHER GANGLION AND [...] OF SYNOVIUM, TENDON, AND BURSA 03/04/2010 GALDAMEZ DO ELANA K 727.49 OTHER GANGLION AND CYST OF SYNOVIUM, TENDON, AND BURSA 03/04/2010 ELANA GALDAMEZ DO K 727.49 OTHER GANGLION AND CYST OF SYNOVIUM, TENDON, AND BURSA 03/04/2010 GENET STUBBS, SAFIA A 727.49 OTHER GANGLION AND CYST OF SYNOVIUM, TENDON, AND BURSA 03/04/2010 GENET LEVYN, SAFIA A 727.49 OTHER GANGLION AND CYST OF SYNOVIUM, TENDON, AND BURSA 03/04/2010 GENET UTILITY TECHNICIAN, SAFIA A 727.49 OTHER GANGLION AND CYST OF SYNOVIUM, TENDON, AND BURSA 03/04/2010 SARAI SUTBBS NNEKA R 727.49 OTHER GANGLION AND CYST [...] K 727.41 GANGLION OF JOINT 04/04/2010 GENET UTILITY TECHNICIAN, SAFIA A 727.41 GANGLION OF JOINT 04/04/2010 GENET UTILITY TECHNICIAN, SAFIA A 727.41 GANGLION OF JOINT 04/04/2010 GENET UTILITY TECHNICIAN, SAFIA A 727.41 GANGLION OF JOINT 04/04/2010 SARAI LEVYN NNEKA R 727.41 GANGLION OF JOINT 04/04/2010 SARAI UTILITY TECHNICIAN NNEKA R 727.41 GANGLION OF JOINT 03/04/2011 [...] K 354.0 CARPAL TUNNEL SYNDROME 03/04/2011 GENET UTILITY TECHNICIAN, SAFIA A 354.0 CARPAL TUNNEL SYNDROME 03/04/2011 GENET UTILITY TECHNICIAN, SAFIA A 354.0 CARPAL TUNNEL SYNDROME 03/04/2011 GENET UTILITY TECHNICIAN, SAFIA A 354.0 CARPAL TUNNEL SYNDROME 03/04/2011 [...] GALDAMEZ DO V65.3 COUNSELING- OBESITY (DIET) 10/22/2011 ELANA GALDAMEZ DO V65.45 STD COUNSELING 10/22/2011 ELANA GALDAMEZ DO K V74.5 STD SCREEN 10/22/2011 ELANA GALDAMEZ DO V76.10 BREAST CANCER SCREENING 10/22/2011 DARYL GALDAMEZ DOA Emma V76.2 CERVICAL CANCER SCREENING (PAP SMEAR) 10/22/2011 ELANA GALDAMEZ DO 726.73 HEEL SPUR 10/22/2011 GALDAMEZ DARYL GALEASA K V25.9 CONTRACEPTION MANAGEMENT 10/22/2011 DARYL GALDAMEZ DOA Emma V65.3 COUNSELING- OBESITY (DIET) 10/22/2011 GALDAMEZ DO, [...] K V65.45 STD COUNSELING 10/22/2011 GALDAMEZ DO EALNA K V74.5 STD SCREEN 10/22/2011 GALDAMEZ DO ELANA K V76.10 BREAST CANCER SCREENING 10/22/2011 GALDAMEZ DO ELANA K V76.2 CERVICAL CANCER SCREENING (PAP SMEAR) 10/22/2011 SAFIA DE LEÓN APRN A 726.73 HEEL SPUR 10/22/2011 SAFIA DE LEÓN APRN A V25.9 CONTRACEPTION MANAGEMENT 10/22/2011 FABIOLA DE LEÓN APRNIDI A V65.3 COUNSELING- OBESITY (DIET) 10/22/2011 FABIOLA DE LEÓN APRNIDI A V65.45 STD COUNSELING 10/22/2011 SAFIA DE LEÓN APRN A V74.5 STD SCREEN 10/22/2011 FABIOLA DE LEÓN APRNIDI A V76.10 BREAST CANCER SCREENING 10/22/2011 SAFIA DE LEÓN APRN A V76.2 CERVICAL CANCER SCREENING (PAP SMEAR) 10/22/2011 SAFIA DE LEÓN APRN A 726.73 HEEL SPUR 10/22/2011 GENET STUBBSFABIOLASAFIA A V25.9 CONTRACEPTION MANAGEMENT 10/22/2011 FABIOLA DE LEÓN APRNIDI A V65.3 COUNSELING- OBESITY (DIET) 10/22/2011 EGNET STUBBSSAFIA A V65.45 STD COUNSELING 10/22/2011 GENET STUBBSSAFIA A V74.5 STD SCREEN 10/22/2011 GENET STUBBSSAFIA A V76.10 BREAST CANCER SCREENING 10/22/2011 GENET STUBBSSAFIA A V76.2 CERVICAL CANCER SCREENING (PAP SMEAR) 10/22/2011 GENET STUBBSSAFIA A 726.73 HEEL SPUR 10/22/2011 FABIOLA DE LEÓN APRNIDI A V25.9 CONTRACEPTION MANAGEMENT 10/22/2011 GENET STUBBS SAFIA A V65.3 COUNSELING- OBESITY (DIET) 10/22/2011 GENET STUBBSSAFIA A V65.45 STD COUNSELING 10/22/2011 GENET STUBBSSAFIA A V74.5 STD SCREEN 10/22/2011 GENET STUBBSSAFIA A V76.10 BREAST CANCER SCREENING 10/22/2011 GENET STUBBSSAFIA A V76.2 CERVICAL CANCER SCREENING (PAP SMEAR) 10/22/2011 LYNDON MOON APRNINA R 726.73 HEEL SPUR 10/22/2011 LYNDON MOON APRNINA R V25.9 CONTRACEPTION MANAGEMENT 10/22/2011 SARAI STUBBS NNEKA R V65.3 COUNSELING- OBESITY (DIET) 10/22/2011 SARAI STUBBS NNEKA R V65.45 STD COUNSELING 10/22/2011 SARAI STUBBS NNEKA R V74.5 STD SCREEN 10/22/2011 SARAI STUBBS NNEKA R V76.10 BREAST CANCER SCREENING 10/22/2011 SARAI STUBBS NNEKA R V76.2 CERVICAL CANCER SCREENING (PAP SMEAR) 10/22/2011 SARAI STUBBS NNEKA R 726.73 HEEL SPUR 10/22/2011 SARAI STUBBS NNEKA R V25.9 CONTRACEPTION MANAGEMENT 10/22/2011 SARAI STUBBS NNEKA R V65.3 COUNSELING- OBESITY (DIET) 10/22/2011 SARAI STUBBS NNEKA R V65.45 STD COUNSELING 10/22/2011 SARAI STUBBS NNEKA R V74.5 STD SCREEN 10/22/2011 NNEKA MOON APRN [...] DO K V72.42 TEST POSITIVE RESULT 01/12/2013 DARYL GALDAMEZ DOA K V72.42 TEST POSITIVE RESULT 01/12/2013 DARYL GALDAMEZ DOA K V72.42 TEST POSITIVE RESULT 01/12/2013 ELANA GALDAMEZ DO K V72.42 TEST POSITIVE RESULT 01/12/2013 SAFIA DE LEÓN APRN A V72.42 TEST POSITIVE RESULT 01/12/2013 GENETFABIOLA FERRERA APRNIDI A V72.42 TEST POSITIVE RESULT 01/12/2013 FABIOLA DE LEÓN APRNIDI A V72.42 TEST POSITIVE RESULT 01/12/2013 NNEKA MOON APRN V72.42 TEST POSITIVE RESULT 01/12/2013 NNEKA MOON APRN V72.42 TEST POSITIVE RESULT 06/16/2013 V06.1 TDAP DX 06/16/2013 V77.1 DIABETES SCREENING 06/16/2013 V78.0 ANEMIA SCREENING 06/16/2013 V06.1 TDAP DX 06/16/2013 V77.1 DIABETES SCREENING 06/16/2013 V78.0 ANEMIA SCREENING 06/16/2013 V06.1 TDAP DX 06/16/2013 V77.1 DIABETES SCREENING 06/16/2013 V78.0 ANEMIA SCREENING 06/16/2013 GALDAMEZ DO ELANA K V06.1 TDAP DX 06/16/2013 GALDAMEZ DARYL GALEASA K V77.1 DIABETES SCREENING 06/16/2013 GALDAMEZ DARYL GALEASA K V78.0 ANEMIA SCREENING 06/16/2013 GALDAMEZ DO, [...] ELANA K V78.0 ANEMIA SCREENING 06/16/2013 GENET UTILITY TECHNICIAN, SAFIA A V06.1 TDAP DX 06/16/2013 GENET UTILITY TECHNICIAN, SAFIA A V77.1 DIABETES SCREENING 06/16/2013 GENET UTILITY TECHNICIAN, SAFIA A V78.0 ANEMIA SCREENING 06/16/2013 GENET UTILITY TECHNICIAN, SAFIA A V06.1 TDAP DX 06/16/2013 GENET UTILITY TECHNICIAN, SAFIA A V77.1 DIABETES SCREENING 06/16/2013 GENET UTILITY TECHNICIAN, SAFIA A V78.0 ANEMIA SCREENING 06/16/2013 GENET UTILITY TECHNICIAN, SAFIA A V06.1 TDAP DX 06/16/2013 GENET UTILITY TECHNICIAN, SAFIA A V77.1 DIABETES SCREENING 06/16/2013 GENET UTILITY TECHNICIAN, SAFIA A V78.0 ANEMIA SCREENING 06/16/2013 SARAI UTILITY TECHNICIAN, NNEKA R V06.1 TDAP DX 06/16/2013 SARAI UTILITY TECHNICIAN, NNEKA R V77.1 DIABETES SCREENING 06/16/2013 SARAI UTILITY TECHNICIAN, NNEKA R V78.0 ANEMIA SCREENING 06/16/2013 SARAI UTILITY TECHNICIAN, NNEKA R V06.1 TDAP DX 06/16/2013 SARAI UTILITY TECHNICIAN, NNEKA R V77.1 DIABETES SCREENING 06/16/2013 SARAI UTILITY TECHNICIAN, NNEKA R V78.0 ANEMIA SCREENING 06/30/2013 648.80 [...] COMPL OF - ABNORMAL GTT 06/30/2013 GENET UTILITY TECHNICIAN, SAFIA A 648.80 COMPL OF - ABNORMAL GTT 06/30/2013 GENET UTILITY TECHNICIAN, SAFIA A 648.80 COMPL OF - ABNORMAL GTT 06/30/2013 GENET UTILITY TECHNICIAN, SAFIA A 648.80 COMPL OF - ABNORMAL GTT 06/30/2013 SARAI UTILITY TECHNICIAN, NNEKA R 648.80 COMPL OF - ABNORMAL GTT 06/30/2013 SARAI UTILITY TECHNICIAN, NNEKA R 648.80 COMPL OF - ABNORMAL GTT 07/12/2013 V22.0 , NORMAL FIRST 07/12/2013 V22.0 , NORMAL FIRST 07/12/2013 GALDAMEZ DO, ELANA K V22.0 , NORMAL FIRST 07/12/2013 GALDAMEZ DO, ELANA K V22.0 , NORMAL FIRST 07/12/2013 GLADAMEZ DO, ELANA K V22.0 , NORMAL FIRST 07/12/2013 GALDAMEZ DO, ELANA K V22.0 , NORMAL FIRST 07/12/2013 GENET UTILITY TECHNICIAN, SAFIA A V22.0 , NORMAL FIRST 07/12/2013 GENET UTILITY TECHNICIAN, SAFIA A V22.0 , NORMAL FIRST 07/12/2013 GENET UTILITY TECHNICIAN, SAFIA A V22.0 , NORMAL FIRST 07/12/2013 SARAI UTILITY TECHNICIAN, NNEKA R V22.0 , NORMAL FIRST 07/12/2013 SARAI UTILITY TECHNICIAN, NNEKA R V22.0 , NORMAL FIRST 07/27/2013 V04.81 FLU SHOT 07/27/2013 GALDAMEZ DO, ELANA K V04.81 FLU SHOT 07/27/2013 GALDAMEZ DO, ELANA K V04.81 FLU SHOT 07/27/2013 GALDAMEZ DO, ELANA K V04.81 FLU SHOT 07/27/2013 GALDAMEZ DO, ELANA K V04.81 FLU SHOT 07/27/2013 GENET UTILITY TECHNICIAN, SAFIA A V04.81 FLU SHOT 07/27/2013 GENET UTILITY TECHNICIAN, SAFIA A V04.81 FLU SHOT 07/27/2013 GENET LEVYN, SAFIA A V04.81 FLU SHOT 07/27/2013 LYNDON MOON APRNINA R V04.81 FLU SHOT 07/27/2013 LYNDON MOON APRNINA R V04.81 FLU SHOT 08/03/2013 CATHLEEN JARA MD N Ot 655.73 DECR MOVEMNT ANTEPARTUM CONDITION 08/26/2013 CATHLEEN JARA MD N Ot 599.0 URIN TRACT INFECTION NOS 08/26/2013 CATHLEEN JARA MD N Ot 646.63 INFECTION-ANTEPARTUM 08/29/2013 ELANA GALDAMEZ DO K 642.90 COMPL OF - HTN/PIH 08/29/2013 ELANA GALDAMEZ DO K 649.60 UTERINE SIZE DATE DISCREPANCY - LGA 08/29/2013 DARYL GALDAMEZ DOA K V23.9 , HIGH-RISK (UNSPEC) 08/29/2013 GENET STUBBS, SAFIA A 642.90 COMPL OF - HTN/PIH 08/29/2013 GENET UTILITY TECHNICIAN, SAFIA A 649.60 UTERINE SIZE DATE DISCREPANCY - LGA 08/29/2013 GENET UTILITY TECHNICIAN, SAFIA A V23.9 , HIGH-RISK (UNSPEC) 08/29/2013 GENET UTILITY TECHNICIAN, SAFIA A 642.90 COMPL OF - HTN/PIH 08/29/2013 GENET UTILITY TECHNICIAN, SAFIA A 649.60 UTERINE SIZE DATE DISCREPANCY - LGA 08/29/2013 GENET UTILITY TECHNICIAN, SAFIA A V23.9 , HIGH-RISK (UNSPEC) 08/29/2013 GENET UTILITY TECHNICIAN, SAFIA A 642.90 COMPL OF - HTN/PIH 08/29/2013 GENET UTILITY TECHNICIAN, SAFIA A 649.60 UTERINE SIZE DATE DISCREPANCY - LGA 08/29/2013 GENET UTILITY TECHNICIAN, SAFIA A V23.9 , HIGH-RISK (UNSPEC) 08/29/2013 NNEKA MOON APRN R 642.90 COMPL OF - HTN/PIH 08/29/2013 NNEKA MOON APRN R 649.60 UTERINE SIZE DATE DISCREPANCY - LGA 08/29/2013 NNEKA MOON APRN V23.9 , HIGH-RISK (UNSPEC) 08/29/2013 NNEKA MOON APRN 642.90 COMPL OF - HTN/PIH 08/29/2013 NNEKA MOON APRN 649.60 UTERINE SIZE DATE DISCREPANCY - LGA 08/29/2013 NNEKA MOON APRN V23.9 , HIGH-RISK (UNSPEC) 08/30/2013 CATHLEEN JARA MD N Ot 658.03 OLIGOHYDRAMNIOS-ANTEPAR 09/02/2013 ESTEFANI BINGHAM, CATHLEEN N Ot 642.31 TRANS HYPERTEN-DELIVERED 09/02/2013 CATHLEEN JARA MD N Ot 658.01 OLIGOHYDRAMNIOS-DELIVER 09/02/2013 CATHLEEN JARA MD Ot 659.71 ABN DEL FET HT RT/RHYTHM,W OR W/O MENTIO 09/02/2013 CATHLEEN JARA MD Ot 660.41 SHOULDER DYSTOCIA-DELIV 09/02/2013 CATHLEEN JARA MD N Ot 663.31 CORD ENTANGLE NEC-DELIV 09/02/2013 CATHLEEN JARA MD Ot V27.0 DELIVER-SINGLE LIVEBORN 10/18/2013 SAFIA DE LEÓN APRN V25.09 CONTRACEPTIVE COUNSELING - GENERAL 10/18/2013 SAIFA DE LEÓN APRN V25.09 CONTRACEPTIVE COUNSELING - GENERAL 10/18/2013 SAFIA DE LEÓN APRN V25.09 CONTRACEPTIVE COUNSELING - GENERAL 10/18/2013 NNEKA MOON APRN V25.09 CONTRACEPTIVE COUNSELING - GENERAL 10/18/2013 NNEKA MOON APRN R V25.09 CONTRACEPTIVE COUNSELING - GENERAL 11/07/2013 SAFIA DE LEÓN APRN V25.11 IUD INSERTION 11/07/2013 SAFIA DE LEÓN APRN V25.11 IUD INSERTION 11/07/2013 NNEKA MOON APRN V25.11 IUD INSERTION 11/07/2013 NNEKA MOON APRN V25.11 IUD INSERTION 12/19/2013 SAFIA DE LEÓN APRN V25.42 CONTRACEPTION SURVEILLANCE (IUD) 12/19/2013 NNEKA MONO APRN V25.42 CONTRACEPTION SURVEILLANCE (IUD) 12/19/2013 NNEKA MOON APRN R V25.42 CONTRACEPTION SURVEILLANCE (IUD) 06/06/2014 KAISER VALLEJO APRN Ot 724.5 BACKACHE NOS 06/06/2014 KA[facility]ER VALLEJO APRN Ot 847.9 SPRAIN OF BACK NOS 06/06/2014 KAISER VALLEJO APRN Ot E927.0 OVEREXERTION FROM SUDDEN STRENUOUS MOVEM 10/25/2014 NNEKA MOON APRN R 788.1 DYSURIA 10/25/2014 LYNDON MOON APRNINA R 788.1 DYSURIA 11/07/2014 ELANA GALDAMEZ DO Ot 790.22 11/07/2014 ELANA GALDAMEZ DO Ot V22.2 02/15/2015 NNEKA MOON APRN R 784.0 HEADACHE 02/15/2015 NNEKA MOON APRN R 787.02 NAUSEA ALONE 10/17/2015 Ot V22.1 10/17/2015 ELANA GALDAMEZ DO Ot V28.89 10/17/2015 ELANA GALDAMEZ DO Ot 790.22 10/17/2015 ELANA GALDAMEZ DO Ot V22.2 10/17/2015 SAFIA DE LEÓN APRN Ot V22.1 10/17/2015 SAFIA DE LEÓN APRN Ot 790.29 10/17/2015 ESTEFANI BINGHAM, CATHLEEN Garza Ot 642.33 08/09/2016 ELBERT FRIEDMAN DO Ot F17.210 NICOTINE DEPENDENCE, CIGARETTES, UNCOMPL 08/09/2016 ELBERT FRIEDMAN DO Ot N12 TUBULO-INTERSTITIAL NEPHRITIS, NOT SPCF 08/09/2016 ELBERT FRIEDMAN DO Ot R10.32 LEFT LOWER QUADRANT PAIN 08/09/2016 Ot V22.1 SUPERVIS OTH NORMAL PREG 08/09/2016 ELANA GALDAMEZ DO Ot V28.89 OTHER SPECIFIED SCREENING 08/09/2016 ELANA GALDAMEZ DO Ot 790.22 IMPAIRED GLUCOSE TOLERANCE TEST (ORAL) 08/09/2016 ELANA GALDAMEZ DO Ot V22.2 PREG STATE, INCIDENTAL 08/09/2016 SAFIA DE LEÓN APRN Ot V22.1 SUPERVIS OTH NORMAL PREG 08/09/2016 SAFIA DE LEÓN APRN Ot 790.29 OTHER ABNORMAL GLUCOSE 08/09/2016 ESTEFANI BINGHAM, CATHLEEN Garza Ot 642.33 TRANS HYPERTEN-ANTEPART 08/09/2016 GEORGE ESTEBAN UTILITY TECHNICIAN Ot 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 08/09/2016 GEORGE ESTEBAN UTILITY TECHNICIAN Ot N60.12 DIFFUSE CYSTIC MASTOPATHY OF LEFT BREAST 08/09/2016 GEORGE ESTEBAN UTILITY TECHNICIAN Ot Z87.898 PERSONAL HISTORY OF OTHER SPECIFIED COND 08/12/2016 ELBERT FRIEDMAN DO Ot F17.210 NICOTINE DEPENDENCE, CIGARETTES, UNCOMPL 08/12/2016 ELBERT FRIEDMAN DO Ot N12 TUBULO-INTERSTITIAL NEPHRITIS, NOT SPCF 08/12/2016 ELBERT FRIEDMAN DO Ot R10.32 LEFT LOWER QUADRANT PAIN 08/16/2018 ELANA GALDAMEZ DO Ot V28.89 OTHER SPECIFIED SCREENING 08/16/2018 ELANA GALDAMEZ DO Ot 790.22 IMPAIRED GLUCOSE TOLERANCE TEST (ORAL) 08/16/2018 ELANA GALDAMEZ DO Ot V22.2 PREG STATE, INCIDENTAL 08/16/2018 SAFIA DE LEÓN APRN Ot V22.1 SUPERVIS OTH NORMAL PREG 08/16/2018 SAFIA DE LEÓN UTILITY TECHNICIAN Ot 790.29 OTHER ABNORMAL GLUCOSE 08/16/2018 ESTEFANI BINGHAM, CATHLEEN Garza Ot 642.33 TRANS HYPERTEN-ANTEPART 08/16/2018 GEORGE ESTEBAN UTILITY TECHNICIAN Ot 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 08/16/2018 GEORGE ESTEBAN UTILITY TECHNICIAN Ot N60.12 DIFFUSE CYSTIC MASTOPATHY OF LEFT BREAST 08/16/2018 GEORGE ESTEBAN UTILITY TECHNICIAN Ot Z87.898 PERSONAL HISTORY OF OTHER SPECIFIED COND 08/18/2018 ELBERT FRIEDMAN DO Ot F12.10 CANNABIS ABUSE, UNCOMPLICATED 08/18/2018 ELBERT FRIEDMAN DO Ot F17.210 NICOTINE DEPENDENCE, CIGARETTES, UNCOMPL 08/18/2018 ELBERT FRIEDMAN DO Ot S80.861A INSECT BITE (NONVENOMOUS), RIGHT LOWER L 08/18/2018 ELBERT FRIEDMAN DO Ot W57.XXXA BIT/STUNG BY NONVENOM INSECT OTH NONVE 08/18/2018 IDALIA DO ELBERT Carter Ot Z87.448 PERSONAL HISTORY OF OTHER DISEASES OF UR Procedures Code [place] [address] URINE TEST (IN- HOUSE) 01/12/2013 44725 US OB - EARLY <14 WEEKS 02/09/2013 53092 UA OB DIP 02/09/2013 57655 [facility] 02/09/2013 88409 ANTIBODY SCREEN (order) 02/09/2013 56831 CULTURE URINE 02/09/2013 95166 HEP B SURFACE ANTIGEN (STATE ) 02/09/2013 08582 CBC 02/09/2013 26263 TSH 02/09/2013 63881 BLOOD TYPE/Rh FACTOR 02/09/2013 4197508 ANTIBODY SCREEN (RESULT ONLY) 02/09/2013 06334 HIV ANTIBODIES (RML) 02/09/2013 62347 RUBELLA ANTIBODY, IGG 02/10/2013 01794 UA OB DIP 03/11/2013 33765 OB - COMPLETE >14 WEEKS 03/11/2013 58994 GC/CHLAM PROBE ([facility]) 03/11/2013 04160 TRICHOMONAS (IN-HOUSE) 03/11/2013 11883 CULTURE UROGENITAL 03/14/2013 35815 ROUTINE VENIPUNCTURE 04/06/2013 46958 UA OB DIP 04/06/2013 37350 GLUCOSE AN 1 HOUR 04/07/2013 TETRA TETRA SCREEN 04/11/2013 02825 GLUCOSE AN 3 HOUR 04/13/2013 23999 US OB - COMPLETE >14 WEEKS 04/15/2013 19184 UA OB DIP 04/27/2013 19087 UA OB DIP 06/30/2013 02889 UA OB DIP 07/12/2013 90969 GLUCOSE FINGER STICK 07/12/2013 13263 UA OB DIP 07/27/2013 75119 UA OB DIP 08/10/2013 92415 CULTURE GROUP B STREP VAG 08/10/2013 63228 NON-STRESS TEST 08/17/2013 73479 UA OB DIP 08/17/2013 49657 UA OB DIP 08/24/2013 79393 US OB - FOLLOW UP 08/24/2013 77987 NON-STRESS TEST 08/29/2013 76184 UA OB DIP 08/29/2013 73.4 MEDICAL INDUCTION LABOR 08/31/2013 73.59 MANUAL ASSIST DELIV NEC 08/31/2013 87693 URINE TEST (IN- HOUSE) 10/18/2013 01617 IUD INSERTION 11/07/2013 J7302 LEVONORGESTREL IU CONTRACEPT 11/07/2013 77524 URINE TEST (IN- HOUSE) 11/07/2013 60668 CULTURE URINE 10/25/2014 72822 UA W/ CULTURE IF INDICATED 10/25/2014 Results [...] detection in urine sediment by light microscopy 10-25 NRG Crystals detection in urine sediment by light microscopy NONE NRG Casts detection in urine sediment by light microscopy NONE NRG Mucus detection in urine sediment by light microscopy NEGATIVE NRG Complete urinalysis with reflex to culture YES NRG Bacterial urine culture - 08/09/16 20:30 Bacterial urine culture [id number] NRG COLONY COUNT >100,000/ML NRG FTX;REPORTABLE SENSITIVITY REPORTED AT 0829. 08-11-16 NRG URINE CULTURE RESULTS PLUS NRG Bacterial [...] Status Pt. Type Provider Facility Loc./Unit Complaint [id number] 02/15/2015 15:44:00 02/15/2015 23:59:59 CLS Outpatient SARAI LEVYNNEKA Garza [id number] 10/25/2014 08:49:00 10/25/2014 23:59:59 CLS Outpatient SARAI LEVYNNEKA Garza [id number] 12/19/2013 10:01:00 12/19/2013 23:59:59 CLS Outpatient FABIOLA DE LEÓN APRNCLIVE Lewis [id number] 11/07/2013 08:28:00 11/07/2013 23:59:59 CLS Outpatient FABIOLA DE LEÓN APRNCLIVE [facility] [id number] 10/18/2013 14:32:00 10/18/2013 23:59:59 CLS Outpatient FABIOLA DE LEÓN APRNCLIVE Lewis [id number] 08/24/2013 15:10:00 08/24/2013 23:59:59 CLS Outpatient ELANA GALDAMEZ DO [id number] 08/17/2013 15:08:00 08/17/2013 23:59:59 CLS Outpatient ELANA GALDAMEZ DO [id number] 08/17/2013 15:08:00 08/17/2013 23:59:59 CLS Outpatient ELANA GALDAMEZ DO [id number] 08/10/2013 14:10:00 08/10/2013 23:59:59 CLS Outpatient ELANA GALDAMEZ DO [id number] 02/09/2013 09:56:00 02/09/2013 23:59:59 CLS Outpatient [id number] 01/12/2013 11:38:00 01/12/2013 23:59:59 CLS Outpatient [id number] 07/27/2013 16:25:00 Document Registration [id number] 07/12/2013 15:56:00 Document Registration [id number] 06/30/2013 15:02:00 Document Registration [id number] 04/27/2013 14:45:00 Document Registration [id number] 04/06/2013 15:42:00 Document Registration [id number] 04/06/2013 15:42:00 Document Registration [id number] 03/11/2013 10:32:00 Document Registration [id number] 11/04/2018 09:00:00 11/04/2018 23:59:59 CLS Outpatient LORETO [facility] [id number] 11/27/2017 13:20:00 Document Registration [id number] 02/14/2019 11:34:00 02/14/2019 13:20:00 DIS Emergency KAISER VALLEJO UTILITY TECHNICIAN [facility] ER DENTAL PAIN [id number] 08/15/2018 22:51:00 08/16/2018 00:02:00 DIS Outpatient ELBERT FRIEDMAN DO [facility] ER INSECT BITE [id number] 08/09/2016 20:05:00 08/09/2016 21:34:00 DIS Emergency ELBERT FRIEDMAN DO [facility] ER STOMACH PAIN, L SIDE BACK PAIN [id number] 11/13/2015 14:16:00 11/13/2015 23:59:59 CLS Outpatient GEORGE ESTEBAN UTILITY TECHNICIAN [facility] RAD NIPPLE DISCHARGE [id number] 06/06/2014 09:48:00 06/06/2014 11:18:00 DIS Emergency KAISER VALLEJO UTILITY TECHNICIAN [facility] ER BACK PAIN [id number] 08/31/2013 06:14:00 09/02/2013 20:35:00 DIS Inpatient CATHLEEN JARA MD [facility] WS INDUCTION [id number] 08/30/2013 11:11:00 08/30/2013 13:05:00 DIS Outpatient CATHLEEN JARA MD [facility] RAD LARGE FOR GEST AGE [id number] 08/27/2013 18:35:00 08/27/2013 23:59:59 CLS Outpatient CATHLEEN JARA MD [facility] LAB INDUCED HYPERTENSION [id number] 08/26/2013 13:43:00 08/26/2013 19:56:00 DIS Outpatient CATHLEEN JARA MD [facility] WSo C/O LBP [id number] 08/03/2013 04:16:00 08/03/2013 05:30:00 DIS [facility] [id number] 06/20/2013 09:47:00 06/20/2013 23:59:59 CLS Outpatient SAFIA DE LEÓN APRN [facility] LAB ELEVATED 1 HR GTT [id number] 06/02/2013 12:58:00 06/02/2013 23:59:59 CLS Outpatient SAFIA DE LEÓN APRN [facility] RAD LIMITED FOR FOUR CHAMBER VIEW-STOMACH AND BLADDER [id number] 04/15/2013 13:10:00 04/15/2013 23:59:59 CLS Outpatient ELANA GALDAMEZ DO [facility] RAD SURVEY [id number] 04/14/2013 10:32:00 04/14/2013 23:59:59 CLS Outpatient ELANA GALDAMEZ DO [facility] LAB [id number] 02/14/2013 09:17:00 Document Registration
[2019-03-15] MEDS ORDERED: ONDANSETRON 4 MG (ZOFRAN) ORAL DISSOLVE TAB PO ONE (09:30)
--- NOTE | 2019-03-15 09:58 | Diagnostic Imaging Report ---
PROCEDURE: CT head without contrast. TECHNIQUE: Multiple contiguous axial images were obtained through the brain without the use of intravenous contrast. Auto Exposure Controls were utilized during the CT exam to meet ALARA standards for radiation dose reduction. INDICATION: Head trauma with dizziness and headache. FINDINGS: The ventricles and sulci are within normal limits. There is no hydrocephalus or cerebral edema. There is no midline shift or mass effect. There is no intracranial mass, hemorrhage, or extra-axial fluid collection. The visualized paranasal sinuses and mastoid air cells are clear. There are no regional areas of decreased attenuation appreciated to suggest an acute CVA. IMPRESSION: No acute intracranial abnormality. Dictated by: Dictated on workstation # [id number]
[2019-03-15] MEDS ORDERED: ONDA4TAB11 PO (10:22)
--- NOTE | 2019-03-15 10:23 | ED Head Injury ---
General Chief Complaint: Head/Cervical Problems Stated Complaint: HEAD INJ Nursing Triage Note: PT AMBULATES TO ROOM 9 PT STATES HIT HEAD ON CABINET THIS AT, R SIDE HEAD, STATES FEELS "FUNKY", NAUSEA, FACE MATTHIEU, DIZZY WHEN WALKS FAST Allergies and Home Medications Allergies Coded Allergies: No Known Drug Allergies (Verified , 10/09/08) Home Medications Amoxicillin 500 Mg Capsule, 500 MG PO TID Prescribed by: KAISER VALLEJO on 02/14/19 1314 Fluconazole 200 Mg Tablet, 200 MG PO DAILY Prescribed by: ELBERT FRIEDMAN on 08/09/162110 Hydrocodone/Acetaminophen 1 Each Tablet, 1 EACH PO Q6H PRN for PAIN-MODERATE Prescribed by: KAISER VALLEJO on 02/14/19 1314 Levofloxacin 500 Mg Tablet, 500 MG PO DAILY Prescribed by: ELBERT FRIEDMAN on 08/09/162110 Sulfamethoxazole/Trimethoprim 1 Each Tablet, 1 EACH PO BID Prescribed by: ELBERT FRIEDMAN on 08/15/182349 Tramadol HCl 50 Mg Tablet, 50 MG PO Q4H Prescribed by: ELBERT FRIEDMAN on 08/09/162110 Past Bswrubg-Aoosdy-Lstsms Hx Patient Social History Type Used: Cigarettes Recent Foreign Travel: No Contact w/Someone Who Travel: No Recent Infectious Disease Expo: No Recent Hopitalizations: Yes (delivery 2002) Immunizations Up To Date Tetanus Booster (TDap): Unknown PED Vaccines UTD: Yes Date of Influenza Vaccine: Aug 01, 2013 Past Medical History Surgeries: Yes (BMT'S AGE 6) Ear Surgery Respiratory: No Cardiac: No Neurological: No : No (MIRENA) 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 oz. 113.556674xn; BMI Method:Stated Progress/Results/Core Measures Results/Orders My Orders Orders - ELBERT FRIEDMAN DO Ondansetron Oral Dissolve Tab (Zofran (03/15/19 09:30) Urine Bedside (03/15/19 09:27) Ct Head Wo (03/15/19 09:27) Vital Signs/I&O 03/15/19 09:20 Temp 97.1 Pulse 65 Resp 18 B/P (MAP) 117/79 (92) Pulse Ox 100 Blood Pressure Mean: 92 Departure Impression Primary Impression: Minor head injury without loss of consciousness Disposition: HOME, SELF-CARE Condition: Stable Departure-Patient Inst. Referrals: [facility] Patient Instructions: Minor Head Injury (DC) Add. Discharge Instructions: LOTS OF CLEAR LIQUIDS, BLAND DIET NO DRIVING FOR 24 HOURS TYLENOL NEEDED FOR PAIN FOLLOW UP WITH YOUR DR IN 2-3 DAYS IF NO BETTER, RETURN TO ER IF WORSE All discharge instructions reviewed with patient and/or family. Voiced understanding. Scripts Ondansetron (Ondansetron Odt) 4 Mg Tab.rapdis 4 MG PO Q4H for Nausea/Vomiting, #10 TAB Prov: ELBERT FRIEDMAN DO 03/15/19 Work/School Note: Work Release Form Date Seen in the Emergency Department: Mar 15, 2019 Return to Work: March 16, 2019 ELBERT FRIEDMAN DO Mar 15, 2019 10:22
[2019-03-15 10:33] VITALS: BP 117/79
== END 2019-03-15 10:34 | disposition home or self-care (01) ==
LOC: EDUNIT# 09:00 → ER 09:01
DX: S09.90XA Unspecified injury of head, initial encounter (principal); Z97.5 Presence of (intrauterine) contraceptive device; Z87.440 Personal history of urinary (tract) infections; Z87.448 Personal history of other diseases of urinary system; W22.09XA Striking against other stationary object, initial encounter
CPT/HCPCS: 70450; 84703

== ENCOUNTER 2021-09-05 05:32 | Inpatient (IN) | payer MEDICAID ==
[2021-09-05] VITALS (20 sets, daily range): BP systolic 104–143; BP diastolic 58–81
[~2021-09-05 05:32] MED LIST changes: +ONDA4TAB11 PO; -SULF1TAB35 PO; +SULF1TAB38 PO
[2021-09-05] MEDS ORDERED: ASPI-999 PO (05:37)
[2021-09-05] MEDS ORDERED: PNV11TAB5 PO (05:38)
[2021-09-05] MEDS ORDERED: METF-397 PO (05:38)
[2021-09-05] MEDS: LACTATED RINGERS 1,000 ML IV SCH ×2 (05:55→06:42)
[2021-09-05 06:05] LABS: BASOPHILS % (AUTO) 0 % (0-10); EOSINOPHILS # (AUTO) 0.2 10^3/uL (0.0-0.3); EOSINOPHILS % (AUTO) 2 % (0-10); HEMATOCRIT 35 % (35-52); LYMPHOCYTES % (AUTO) 26 % (12-44); MEAN CORPUSCULAR HEMOGLOBIN 33 pg (25-34); MEAN CORPUSCULAR HGB CONC 35 g/dL (32-36); MEAN CORPUSCULAR VOLUME 95 fL (80-99); MEAN PLATELET VOLUME 10.2 fL (9.0-12.2); MONOCYTES % (AUTO) 9 % (0-12); NEUTROPHILS # (AUTO) 7.2 10^3/uL (1.8-7.8); NEUTROPHILS % (AUTO) 63 % (42-75); PLATELET COUNT 252 10^3/uL (130-400); WHITE BLOOD COUNT 11.4 10^3/uL (4.3-11.0)
[2021-09-05] MEDS ORDERED: CITRIC ACID/SOB CIT (BICITRA) 30 ML UDC ONE (06:22)
[2021-09-05] MEDS ORDERED: METOCLOPRAMIDE INJ 10 MG/2 ML (REGLAN) ONE (06:23)
[2021-09-05] MEDS ORDERED: FAMOTIDINE 20MG/2ML IV (PEPCID) ONE (06:23)
--- NOTE | 2021-09-05 06:46 | History & Physical-OB/GYN ---
FRITZ,OMAIRA 09/05/21 0646: OB - Chief Complaint & HPI Date/Time Date of Admission: Date of Admission: Sep 05, 2021 at 05:55 Date seen by a Provider: Sep 05, 2021 Time Seen by a Provider: 06:10 Chief Complaint/History OB-Reason for Admission/Chief: Obstetrical Complication (rain bleeding) Hx : 4 Hx Para: 3 Estimated Date of Conception: 10/19/21 Expected Date of Delivery: Sep 05, 2021 Gestational Age in Weeks: 33 Gestational Age in Days: 5 Allergies and Home Medications Allergies Coded Allergies: No Known Drug Allergies (Verified , 10/09/08) Patient Home Medication List Home Medication List Reviewed: Yes Aspirin (Aspirin) 81 Mg Tab.chew, 81 MG PO DAILY, (Reported) Entered as Reported by: BERTA CHOW on 09/05/21536 Last Action: New Order Metformin HCl (Metformin HCl) 500 Mg Tablet, 500 MG PO DAILY, (Reported) Entered as Reported by: BERTA CHOW on 09/05/21537 Last Action: New Order Lts212/FA/Omega3/Dha/Fish Oil ( Gummies) 1 Each Tab.chew, 1 EACH PO DAILY, (Reported) Entered as Reported by: BERTA CHOW on 09/05/21537 Last Action: New Order Discontinued Medications Amoxicillin (Amoxicillin) 500 Mg Capsule, 500 MG PO TID Discontinued Reason: Referral/FU Appt-Addtl Prescribed by: KAISER VALLEJO on 02/14/191313 Last Action: Discontinued Fluconazole (Diflucan) 200 Mg Tablet, 200 MG PO DAILY Discontinued Reason: Referral/FU Appt-Addtl Prescribed by: ELBERT FRIEDMAN on 08/09/162110 Last Action: Discontinued Hydrocodone/Acetaminophen (Hydrocodone/Acetaminophen 5 MG/325 MG TAB) 1 Each Tablet, 1 EACH PO Q6H PRN for PAIN-MODERATE Discontinued Reason: No Longer Taking Prescribed by: KAISER VALLEJO on 02/14/191313 Last Action: Discontinued Levofloxacin (Levaquin) 500 Mg Tablet, 500 MG PO DAILY Discontinued Reason: No Longer Taking Prescribed by: ELBERT FRIEDMAN on 08/09/162110 Last Action: Discontinued Ondansetron (Ondansetron Odt) 4 Mg Tab.rapdis, 4 MG PO Q4H Discontinued Reason: No Longer Taking Prescribed by: ELBERT FRIEDMAN on 03/15/19 1022 Last Action: Discontinued Sulfamethoxazole/Trimethoprim (Bactrim Ds Tablet) 1 Each Tablet, 1 EACH PO BID Discontinued Reason: No Longer Taking Prescribed by: ELBERT FRIEDMAN on 08/15/18 2350 Last Action: Discontinued Tramadol HCl (Ultram) 50 Mg Tablet, 50 MG PO Q4H Discontinued Reason: No Longer Taking Prescribed by: ELBERT FRIEDMAN on 08/09/16 2111 Last Action: Discontinued OB - History Hx of Present Care: Yes Ultrasounds: Normal mid trimester US Obstetrical Complications: Gestational Diabetes, Other (resolved placenta previa) Medical Complications: None Information Induced Hypertension: No Maternal Gestational Diabetes: Yes Obstetrical History Hx : 4 Hx Para: 3 Hx # Term Pregnancies: 3 Hx # Pregnancies: 0 Number of Living Children: 3 Delivery History Hx Blood Disorders: No Patient Past Medical History Depression Anxiety Galactorrhea Pre-diabetes GERD Placenta previa antepartum in second trimester Pelvic pain Immunizations Hepatitis A: Yes Hepatitis B: Yes Tetanus Booster (TDap): Less than 5yrs Date of Influenza Vaccine: Aug 01, 2013 Rubella: immune RPR/VDRL: Negative GBS Status: Unknown HBsAG: Negative OB - Admission Exam Physical Exam Heart: Rhythm Normal Lungs: Clear Abdomen: Gravid Extremities: Edema (trace edema of feet bilaterally) Cervical Dilatation: 3cm Effacement: 0% Station: Ballotable Heart Rate: 140's Accelerations: Accelerations Present Decelerations: No Decelerations Short Term Variability: Present Retirement Variability: Average (6-25) Contractions on Admission: None Labs Laboratory Tests Test 09/05/21 05:50 09/05/21 06:34 Range/Units White Blood Count 11.4 H 4.3-11.0 10^3/uL Red Blood Count 3.63 L 3.80-5.11 10^6/uL Hemoglobin 12.0 11.5-16.0 g/dL Hematocrit 35 35-52 % Mean Corpuscular Volume 95 80-99 fL Mean Corpuscular Hemoglobin 33 25-34 pg Mean Corpuscular Hemoglobin Concent 35 32-36 g/dL Red Cell Distribution Width 12.4 10.0-14.5 % Platelet Count 252 130-400 10^3/uL Mean Platelet Volume 10.2 9.0-12.2 fL Immature Granulocyte % (Auto) 1 % Neutrophils (%) (Auto) 63 42-75 % Lymphocytes (%) (Auto) 26 12-44 % Monocytes (%) (Auto) 9 0-12 % Eosinophils (%) (Auto) 2 0-10 % Basophils (%) (Auto) 0 0-10 % Neutrophils # (Auto) 7.2 1.8-7.8 10^3/uL Lymphocytes # (Auto) 3.0 1.0-4.0 10^3/uL Monocytes # (Auto) 1.0 0.0-1.0 10^3/uL Eosinophils # (Auto) 0.2 0.0-0.3 10^3/uL Basophils # (Auto) 0.0 0.0-0.1 10^3/uL Immature Granulocyte # (Auto) 0.1 0.0-0.1 10^3/uL Glucometer 131 H 70-110 MG/DL OB - Assessment/Plan/Diagnosis Assessment Assessment: observation (observation due to rain bleeding) Admission Dx Rain vaginal bleeding Admission Status: Observation Plan Problems: (1) Vaginal bleeding during Onset Date: ~ 09/05/2021 Assessment & Plan: Obtain ultrasound to assess BPP and signs of concern/placental abruption. Monitor mother's vitals, monitor heart tracing. Contact [employer] for if needed. CTAHLEEN JARA MD 09/05/21820: Allergies and Home Medications Allergies Coded Allergies: No Known Drug Allergies (Verified , 10/09/08) Patient Home Medication List Aspirin (Aspirin) 81 Mg Tab.chew, 81 MG PO DAILY, (Reported) Entered as Reported by: BERTA CHOW on 09/05/21536 Last Action: New Order Metformin HCl (Metformin HCl) 500 Mg Tablet, 500 MG PO DAILY, (Reported) Entered as Reported by: BERTA CHOW on 09/05/21537 Last Action: New Order Wxs579/FA/Omega3/Dha/Fish Oil ( Gummies) 1 Each Tab.chew, 1 EACH PO DAILY, (Reported) Entered as Reported by: BERTA CHOW on 09/05/21537 Last Action: New Order Discontinued Medications Amoxicillin (Amoxicillin) 500 Mg Capsule, 500 MG PO TID Discontinued Reason: Referral/FU Appt-Addtl Prescribed by: KAISER VALLEJO on 02/14/19 1314 Last Action: Discontinued Fluconazole (Diflucan) 200 Mg Tablet, 200 MG PO DAILY Discontinued Reason: Referral/FU Appt-Addtl Prescribed by: ELBERT FRIEDMAN on 08/09/162110 Last Action: Discontinued Hydrocodone/Acetaminophen (Hydrocodone/Acetaminophen 5 MG/325 MG TAB) 1 Each Tablet, 1 EACH PO Q6H PRN for PAIN-MODERATE Discontinued Reason: No Longer Taking Prescribed by: KAISER VALLEJO on 02/14/19 1314 Last Action: Discontinued Levofloxacin (Levaquin) 500 Mg Tablet, 500 MG PO DAILY Discontinued Reason: No Longer Taking Prescribed by: ELBERT FRIEDMAN on 08/09/162110 Last Action: Discontinued Ondansetron (Ondansetron Odt) 4 Mg Tab.rapdis, 4 MG PO Q4H Discontinued Reason: No Longer Taking Prescribed by: ELBERT FRIEDMAN on 03/15/19 1022 Last Action: Discontinued Sulfamethoxazole/Trimethoprim (Bactrim Ds Tablet) 1 Each Tablet, 1 EACH PO BID Discontinued Reason: No Longer Taking Prescribed by: ELBERT FRIEDMAN on 08/15/18 2350 Last Action: Discontinued Tramadol HCl (Ultram) 50 Mg Tablet, 50 MG PO Q4H Discontinued Reason: No Longer Taking Prescribed by: ELBERT FRIEDMAN on 08/09/162110 Last Action: Discontinued Supervisory-Addendum Brief Verification & Attestation Participated in pt care: history, MDM, physical Personally performed: exam, history Care discussed with: Medical Student Procedures: n/a I personally saw and examined patient. I was called by nurses at 0534 when patient arrived, and I saw patient at about 0600. at 33w5d with complicated by GDM. She noted that she had woken up from sleep with a large gush, and thought maybe her water had broken, but when she turned the lights on she discovered she was covered in blood, she continued to bleed, soaked her carpet and a towel and was leaving a trail of bleeding as she left her house to come to the hospital. At the time of my exam, she was having some pelvic cramping and back pain that was mild to moderate, no clear contractions. Maternal blood pressure and heart rate okay and heart rate 130s, moderate variability with accels, difficult to trace at times due to maternal body habitus. She did have history of previa in second trimester, on a 31 week US, the placenta was more than 2 cm from the os. She saw MFM yesterday due to difficult to control blood sugar with metformin alone, but reports only her fasting glucose was elevated, so they were starting insulin 14 units at night, but she was not able to pick it up yesterday so hasn't started it yet. She notes they did US yesterday also and she believes everything was fine. She continued to feel some gushes of blood after arrival at the hospital but with decreasing frequency and volume. DIC labs pending, US per tech verbal report showed no US evidence of abruption, placenta 3.7 cm from os, BPP 8/8, no abnormalities seen. After US, pt noted that she had not had a gush in quite some time, and after urinating her pelvic cramping was somewhat improved. Given maternal and stability, will proceed with continuous and maternal monitoring. Betamethasone for lung maturity and ampicillin for possible onset of labor with GBS unknown. Start novolin N 14 units now, and monitor glucose closely with steroid administration. Discussed with on-call Product Manager and Pediatrics. OMAIRA FRITZ Sep 05, 2021 06:46 CATHLEEN JARA MD Sep 05, 2021 08:21
[2021-09-05] MEDS ORDERED: ceFAZolin 2 GM IV Premixed 0 ML ONE (06:51)
[2021-09-05] MEDS ORDERED: AMPICILLIN FOR IV USE 2,000 MG in WATER (STERILE) FOR INJECTION 14.8 ML IV SCH (07:25)
[2021-09-05] MEDS ORDERED: BETAMETHASONE ACE/NA PHOS 6 MG/ML (CELESTONE SOLUSPAN) IM SCH (07:30)
[2021-09-05] MEDS ORDERED: WATER (STERILE) FOR INJECTION 20 ML ONE (07:33)
[2021-09-05] MEDS ORDERED: AMPICILLIN 2,000 MG/14.8 ML (IV USE) ONE (07:33)
[2021-09-05] MEDS ORDERED: inSUlin NPH (NovoLIN N) 1 UNIT/0.01 ML (CHARGE PER UNIT) SQ ONE (08:15)
[2021-09-05 08:22] LABS: BILIRUBIN,URINE NEGATIVE (NEGATIVE); CLARITY,URINE CLEAR; COLOR,URINE AMBER; GLUCOSE, URINE (UA) NEGATIVE (NEGATIVE); KETONES,URINE 1+ (NEGATIVE); LEUKOCYTE ESTERASE ,URINE TRACE (NEGATIVE); NITRITE,URINE POSITIVE (NEGATIVE); PROTEIN,URINE 2+ (NEGATIVE)
[2021-09-05 08:36] LABS: AMPHETAMINE SCREEN, URINE NEGATIVE (NEGATIVE); BARBITURATE SCREEN URINE NEGATIVE (NEGATIVE); BENZODIAZEPINES SCREEN URINE NEGATIVE (NEGATIVE); CANNABINOID SCREEN, URINE NEGATIVE (NEGATIVE); COCAINE SCREEN URINE NEGATIVE (NEGATIVE); METHADONE STAT NEGATIVE (NEGATIVE); METHAMPHETAMINE SCREEN URINE S NEGATIVE (NEGATIVE); OPIATE SCREEN URINE NEGATIVE (NEGATIVE); OXYCODONE STAT NEGATIVE (NEGATIVE); PROPOXYPHENE STAT NEGATIVE (NEGATIVE); TRICYCLIC ANTIDEPRESSANTS SCRE NEGATIVE (NEGATIVE)
[2021-09-05 08:44] LABS: BACTERIA,URINE TRACE /HPF; RBC,URINE TNTC /HPF; WBC,URINE 0-2 /HPF
[2021-09-05 08:54] LABS: FIBRIN DEGRADATION PRODUCTS 0.5 UG/ML (0.00-0.49); PROTHROMBIN TIME PATIENT 13.2 SEC (12.2-14.7)
--- NOTE | 2021-09-05 08:59 | Diagnostic Imaging Report ---
INDICATION: Heavy bleeding and pain. There is a single live fetus in a cephalic presentation. heart rate was recorded at 129 bpm. Placenta is posterior. Amniotic fluid index is 12.9 cm. Biophysical profile score is normal at 8 out of 8. Cervical length is 4.5 cm. No retroplacental fluid collection or evidence of abruption is detected. IMPRESSION: Biophysical profile score 8 out of 8. Dictated by: Dictated on workstation # [id number]
[2021-09-05] MEDS ORDERED: MAGNESIUM 2 GM/50 ML IVPB 50 ML IV ONE ×2 (09:15→14:15)
[2021-09-05] MEDS ORDERED: MAGNESIUM 2 GM/50 ML IVPB 2 GM in MAGNESIUM 4 GM/100 ML IVPB 100 ML IV ONE (09:15)
[2021-09-05 09:29] LABS: ALBUMIN 3.2 GM/DL (3.2-4.5); BILIRUBIN,TOTAL 0.2 MG/DL (0.1-1.0); CALCIUM 9.2 MG/DL (8.5-10.1); CREATININE SERUM 0.64 MG/DL (0.60-1.30); POTASSIUM 3.9 MMOL/L (3.6-5.0); TOTAL PROTEIN 6.5 GM/DL (6.4-8.2)
[2021-09-05] MEDS ORDERED: MAGNESIUM 4 GM/100 ML IVPB 100 ML IV ONE (09:45)
[2021-09-05] MEDS ORDERED: MAGNESIUM SULFATE DRIP 500 ML IV SCH (10:15)
[2021-09-05] MEDS ORDERED: LACTATED RINGERS 1,000 ML IV SCH (10:45)
[2021-09-05] MEDS ORDERED: AMPICILLIN FOR IV USE 1,000 MG in WATER (STERILE) FOR INJECTION 7.4 ML IV SCH (11:30)
[2021-09-05] MEDS ORDERED: inSUlin NPH (NovoLIN N) 1 UNIT/0.01 ML (CHARGE PER UNIT) SQ SCH (21:00)
--- NOTE | 2021-09-06 08:38 | Physician Query-Final Dx ---
MADDIE GALLEGOS 09/06/21 0838: Final Diagnosis Give Final Diagnosis Please give Final Diagnosis CATHLEEN JARA MD 09/16/21 1302: Final Diagnosis Give Final Diagnosis Bleeding in third trimester labor Gestational diabetes 33 weeks gestation MADDIE GALLEGOS Sep 06, 2021 08:38 CATHLEEN JARA MD Sep 16, 2021 13:02
== END 2021-09-05 16:00 | disposition home or self-care (01) | DRG 833 ==
LOC: WSo 05:32 → LDRP 05:33 → WSo 05:54 → LDRP 05:55
PROVIDERS: ADMIT Family Medicine; ATTEND Family Medicine
DX: O24.419 Gestational diabetes mellitus in pregnancy, unspecified control (principal); Z3A.33 33 weeks gestation of pregnancy; Z20.822 Contact with and (suspected) exposure to COVID-19; O92.6 Galactorrhea; O99.343 Other mental disorders complicating pregnancy, third trimester; F41.9 Anxiety disorder, unspecified; F32.A Depression, unspecified; K21.9 Gastro-esophageal reflux disease without esophagitis; O99.613 Diseases of the digestive system complicating pregnancy, third trimester
CPT/HCPCS: 36415; 76819; 80053; 80306; 81000; 82947; 85025; 85379; 85384; 85610; 86850; 86900; 86901; 87088; 87636

== ENCOUNTER 2022-12-28 14:03 | Emergency (ER) | payer MEDICAID ==
[~2022-12-28] VITALS: Ht 157.5 cm; Wt 107.5 kg
[~2022-12-28 14:03] MED LIST changes: +ASPI-999 PO; +METF-397 PO; +PNV11TAB5 PO
[2022-12-28] MEDS ORDERED: KETOROLAC 30 MG/ML VIAL IM ONE (14:45)
--- NOTE | 2022-12-28 14:45 | ED GU-Female ---
General Chief Complaint: - Reproductive Stated Complaint: EXCESSIVE VAGINAL BLEEDING Nursing Triage Note: PT AMB TO RM 9 WITH COMPLAINT OF VAGINAL BLEEDING. STATES SHE STARTED WITH HEAVY BLEEDING AND CLOTS THIS MORNING. WAS SEEN BY [facility] ON THURSDAY FOR VAGINAL BLEEDING THAT HAD BEEN GOING ON SINCE THE BEGINNING OF THE YEAR. STATES THEY DID A VAGINAL CULTURE AND CHECKED HER MIRENA STRINGS. STATES THEY WERE GOING TO CALL HER TOMORROW TO SET UP AN ULTRASOUND TIME. STATES SHE HAS HAD THIS MIRENA FOR ABOUT A YEAR. Source: patient Exam Limitations: no limitations History of Present Illness Date Seen by Provider: Dec 28, 2022 Time Seen by Provider: 14:34 Initial Comments 37-year-old G4, P4 presents to the emergency room with heavy vaginal bleeding since December 07. Patient states that she has had a Mirena now for about a year and normally has regular menses but occasionally has cycles twice a month. She states she steady been bleeding since 07 December. She saw her nurse practitioner on Thursday, had a pelvic exam which documented that her Mirena is apparently in place, she was tested for UTI as well as bacterial vaginosis as well as other STDs. She was told she did not have bacterial vaginosis and her provider was going to schedule an outpatient ultrasound to further confirm that the Mirena is appropriately positioned. Patient is also endorsed painful intercourse over the last couple of weeks. She denies any abnormal vaginal discharge. No fevers or chills. She is not lightheaded or dizzy when she stands up, she is not short of breath. She is very concerned about the size and frequency of clots that she is passing. No prior pelvic surgery other than 1 . No other concerns of abnormal bleeding from the stool or in the urine. No family history of clotting or bleeding disorders. Timing/Duration: getting worse, other (2 weeks) Severity/Quality: severe, aching Location: suprapubic Radiation: none Activities at Onset: none Associated Symptoms: other (headache) Allergies and Home Medications Allergies Coded Allergies: No Known Drug Allergies (Verified , 10/09/08) Patient Home Medication List Home Medication List Reviewed: Yes Aspirin (Aspirin) 81 Mg Tab.chew, 81 MG PO DAILY, (Reported) Entered as Reported by: BERTA CHOW on 09/05/21 0537 Metformin HCl (Metformin HCl) 500 Mg Tablet, 500 MG PO DAILY, (Reported) Entered as Reported by: BERTA CHOW on 09/05/21537 Yep135/FA/Omega3/Dha/Fish Oil ( Gummies) 1 Each Tab.chew, 1 EACH PO DAILY, (Reported) Entered as Reported by: BERTA CHOW on 09/05/21537 Review of Systems Review of Systems Constitutional: see HPI EENTM: nose congestion Respiratory: no symptoms reported Cardiovascular: no symptoms reported Gastrointestinal: abdominal pain Genitourinary: no symptoms reported Musculoskeletal: back pain (low back ache) Skin: no symptoms reported Psychiatric/Neurological: Headache Past Jzfstim-Eotmha-Rsewhx Hx Patient Social History Tobacco Use?: No Use of E-Cig and/or Vaping dev: Yes E-Cig or Vaping type used: Nicotine Substance use?: Yes Substance type: Marijuana Substance frequency: Once in a while Alcohol Use?: No Pt feels they are or have been: No Immunizations Up To Date Tetanus Booster (TDap): Less than 5yrs PED Vaccines UTD: Yes Past Medical History Surgeries: Yes (BMT'S AGE 6) Ear Surgery Respiratory: No Cardiac: No Neurological: No Reproductive Disorders: No 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 oz. [id number]; 43.00 BMI Method:Stated General Appearance: WD/WN, no apparent distress, obese HEENT: PERRL/EOMI Neck: normal inspection Cardiovascular: regular rate, rhythm Respiratory: lungs clear, normal breath sounds, no respiratory distress, no accessory muscle use Gastrointestinal: normal bowel sounds, soft, tenderness (mild suprapubic discomfort) Pelvic: other (Deferred) Extremities: normal range of motion Neurologic/Psychiatric: alert, normal mood/affect, oriented x 3 Skin: normal color, warm/dry Progress/Results/Core Measures Suspected Sepsis SIRS Temperature: Pulse: 84 Respiratory Rate: 16 Laboratory Tests 12/28/22 14:56: White Blood Count 13.6H Blood Pressure 159 /108 Mean: 125 Laboratory Tests 12/28/22 14:56: Platelet Count 260 Results/Orders Lab Results Laboratory Tests Test 12/28/22 14:56 Range/Units White Blood Count 13.6 H 4.3-11.0 10^3/uL Red Blood Count 4.26 3.80-5.11 10^6/uL Hemoglobin 14.0 11.5-16.0 g/dL Hematocrit 39 35-52 % Mean Corpuscular Volume 92 80-99 fL Mean Corpuscular Hemoglobin 33 25-34 pg Mean Corpuscular Hemoglobin Concent 36 32-36 g/dL Red Cell Distribution Width 12.3 10.0-14.5 % Platelet Count 260 130-400 10^3/uL Mean Platelet Volume 10.2 9.0-12.2 fL Immature Granulocyte % (Auto) 0 % Neutrophils (%) (Auto) 77 H 42-75 % Lymphocytes (%) (Auto) 15 12-44 % Monocytes (%) (Auto) 6 0-12 % Eosinophils (%) (Auto) 1 0-10 % Basophils (%) (Auto) 1 0-10 % Neutrophils # (Auto) 10.5 H 1.8-7.8 10^3/uL Lymphocytes # (Auto) 2.0 1.0-4.0 10^3/uL Monocytes # (Auto) 0.8 0.0-1.0 10^3/uL Eosinophils # (Auto) 0.2 0.0-0.3 10^3/uL Basophils # (Auto) 0.1 0.0-0.1 10^3/uL Immature Granulocyte # (Auto) 0.1 0.0-0.1 10^3/uL My Orders Orders - BRIJESH STORY MD Ketorolac Injection (Toradol Injection) (12/28/22 14:45) Urine Bedside (12/28/22 14:42) Cbc With Automated Diff (12/28/22 14:42) Medications Given in ED Current Medications Medications Dose Ordered Sig/Ambika Route Start Time Stop Time Status Last Admin Dose Admin Ketorolac Tromethamine 30 mg ONCE ONCE IM 12/28/22 14:45 12/28/22 14:46 DC 12/28/22 15:01 30 MG Vital Signs/I&O 12/28/22 14:14 Pulse 84 Resp 16 B/P (MAP) 159/108 (125) Pulse Ox 99 O2 Delivery Room Air Capillary Refill : Less Than 3 Seconds Blood Pressure Mean: 125 Progress Note : Time: 15:27 Progress Note Patient seen and examined, 37-year-old with dysfunctional uterine bleeding. Evaluation today includes physical exam, CBC and urine test. Differential diagnosis based on history and physical exam, miscarriage, ectopic , anemia. patient CBC is normal, mild leukocytosis but normal hemoglobin at 14. Urine test is negative. She is treated with 30 mg of Toradol IM. She has follow-up scheduled with her primary care provider/nurse practitioner. She will be having a pelvic ultrasound within the next few days to confirm placement of her Mirena. No complaints concerning pelvic infection, this was evaluated 2 days ago in clinic. Her hemoglobin is not low, she is not a candidate for blood transfusion. No emergent reasons for advanced imaging or pelvic ultrasound here in the emergency department. Patient is reassured, advised to start taking an [id number] iron supplement and to return for any worsening complaints. She verbalized understanding. All questions are sought and answered. Departure Impression Primary Impression: Dysfunctional uterine bleeding Disposition: HOME, SELF-CARE Condition: Stable Departure-Patient Inst. Decision time for Depature: 15:30 Referrals: [facility] [place] ([place]Family) Primary Care Physician Patient Instructions: IRREGULAR VAGINAL BLEEDING Add. Discharge Instructions: You may consider starting an over the counter Iron supplement. "Vitron C" is a good replacement, it does not cause as much constipation as other Iron formulations. Please call your primary care providers office tomorrow to schedule your ultrasound. Over the counter Alleve (naproxen) 2 pills twice a day (with food) can help slow down your bleeding and help with cramping/back pain. If you have a fever, worsening pelvic pain, feel light headed or dizzy - please return to the Emergency Department for re-evaluation. Copy Copies To 1: ELANA GALDAMEZ KATHRYN M MD Dec 28, 2022 14:45
[2022-12-28 15:01] LABS: BASOPHILS # (AUTO) 0.1 10^3/uL (0.0-0.1); BASOPHILS % (AUTO) 1 % (0-10); EOSINOPHILS # (AUTO) 0.2 10^3/uL (0.0-0.3); EOSINOPHILS % (AUTO) 1 % (0-10); HEMATOCRIT 39 % (35-52); LYMPHOCYTES % (AUTO) 15 % (12-44); MEAN CORPUSCULAR HEMOGLOBIN 33 pg (25-34); MEAN CORPUSCULAR HGB CONC 36 g/dL (32-36); MEAN CORPUSCULAR VOLUME 92 fL (80-99); MEAN PLATELET VOLUME 10.2 fL (9.0-12.2); MONOCYTES # (AUTO) 0.8 10^3/uL (0.0-1.0); MONOCYTES % (AUTO) 6 % (0-12); NEUTROPHILS # (AUTO) 10.5 10^3/uL (1.8-7.8); NEUTROPHILS % (AUTO) 77 % (42-75); PLATELET COUNT 260 10^3/uL (130-400); WHITE BLOOD COUNT 13.6 10^3/uL (4.3-11.0)
[2022-12-28 15:38] VITALS: BP 146/109
== END 2022-12-28 15:38 | disposition home or self-care (01) ==
LOC: EDUNIT# 14:03 → ER 14:05
DX: N93.8 Other specified abnormal uterine and vaginal bleeding (principal); D72.829 Elevated white blood cell count, unspecified; F17.290 Nicotine dependence, other tobacco product, uncomplicated
CPT/HCPCS: 36415; 84703; 85025; 99284